=== PATIENT | male | born 1985 | race Caucasian/White ===

== ENCOUNTER 2024-08-06 16:34 | Emergency (ER) | payer BC, SELFPAY ==
[2024-08-06 16:35] VITALS: BP 156/94; PULSE 94; RESP 16; TEMP 37; O2SAT 97
--- NOTE | 2024-08-06 16:47 | ED.GENADUL_ITS ---
Discharge Plan Disposition Patient Disposition: Home Condition: Stable Discharge Details Chief Complaint: Orthopedic Clinical Impression: Fracture of left shoulder Primary Care Provider: Daniela,Local ED Provider: Slava Darnell Discharge Instructions Additional Instructions: You have a minimally displaced fracture of the left greater tuberosity of your left shoulder. You can take 1000 mg of acetaminophen and 600 mg of ibuprofen every 6 hours as needed. You should follow-up with orthopedics when you return home. If you feel more ill or have new symptoms such as severe chest pain return to the emergency department for reevaluation HPI General Mode of arrival: ambulatory . Date/Time Provider Initiated Documentation: 08/06/24 16:44 . Limitations to Documentation: no limitations . Information obtained by: patient . History of Present Illness 38 year old M presents to the emergency department with the chief complaint of left shoulder pain s/p fall skiing, described as moderate, Quality is described as aching, and is localized to the left and upper extremity. Patient reports no radiation. Patient started experiencing this hour(s) (2) and it has been constant. Rest improves symptom(s), Movement worsens symptoms . Patient notes no other symptoms.. Patient did receive the following treatments prior to arrival, none Related Data Allergies Allergy/AdvReac Type Severity Reaction Status Date / Time No Known Allergies Allergy Unverified 08/06/24 16:38 General Stated Complaint: Orthopedic EL: 4 Review of Systems All systems reviewed & are unremarkable except as noted in HPI and below Constitutional Constitutional: Denies chills, Denies fever(s) and Denies weakness Cardiovascular Cardiovascular: Denies chest pain and Denies dyspnea Respiratory Respiratory: Denies cough and Denies dyspnea Gastrointestinal Gastrointestinal: Denies abdominal pain, Denies nausea and Denies vomiting Neurologic Neurologic: Denies weakness Exam Const General: no acute distress Orientation: alert [facility] Head: normal to inspection Ears: external ears normal General nose exam: external nose normal Mouth: moist mucous membranes Eyes General: appearance normal, both eyes and all related structures Neck Neck: normal visual inspection Resp Effort & Inspection: normal respiratory effort and able to speak in complete sentences Cardio Rate: regular rate Skin General skin exam: no rashes or lesions noted Neuro General: patient alert and patient oriented x3 Extrem General: normal to inspection, capillary refill normal and no edema Psych Mental Status: mental status grossly normal Course Vital Signs Vital signs: Vital Signs Temperature 37.0 C 08/06/24 16:35 Pulse 94 H 08/06/24 16:35 Respiratory Rate 16 08/06/24 16:35 Blood Pressure 156/94 H 08/06/24 16:35 Pulse Oximetry 97 08/06/24 16:35 Temperature 37.0 C 08/06/24 16:35 Pulse 94 H 08/06/24 16:35 Respiratory Rate 16 08/06/24 16:35 Blood Pressure 156/94 H 08/06/24 16:35 Pulse Oximetry 97 08/06/24 16:35 Pain Level 10 08/06/24 16:45 Medical Decision Making 38-year-old male comes in after he fell skiing landing on his left shoulder. He denies hitting his head and has no head pain, no neck pain, back pain chest or abdomen pain. he localizes the pain to the anterior lateral left shoulder. There is no visible deformity of the shoulder. He has limited range of motion due to pain. He has intact distal sensation and pulses and has no tenderness elsewhere in the arm. Suspect sprain but given limited range of motion due to pain will obtain x-rays to evaluate for fracture/dislocation. Patient stable and has no new pain elsewhere. X-ray shows a minimally displaced left greater tuberosity fracture. No joint dislocation. He already has a sling, he is not from this area but I advise he should follow-up with orthopedics when he returns home on Thursday. Return precautions given Differential Diagnosis Differential Diagnosis: Fracture, dislocation, contusion, sprain Quality:SDOH Health Related Social Needs: No Data to Display PFSH All Active Problems (Updated 08/06/24 @ 17:51 by Slava Darnell MD) Fracture of left shoulder (Acute) Social History Smoking/Tobacco Use Status: Never Smoking risk assessment performed?: Yes Alcohol Intake: current Alcohol Intake frequency: a few times a month Drug use: Never Substance use type: does not use Do you feel safe at home: Yes Do you feel safe in your relationship?: Yes PAWSS Have you Been Recently Intoxicated or Drunk Within the Last 30 days?: No Have you Ever Experienced Previous Episodes of Alcohol Withdrawal?: No Have you ever Experienced Withdrawal Seizures?: No Have you ever Experienced Delirium Tremens(DT)s?: No Have you ever undergone Alcohol Rehabilitation Treatment (i.e, inpt ot outpatient treatment programs)?: No Have you ever Experienced Blackouts?: No Have you ever Combined Alcohol with other Downers within the last 90 days?: No Have you ever Combined Alcohol with any other Substance of Abuse during the last 90 days?: No Positive Blood Alcohol level on Presentation? [PCS.BAL]: No Evidence of Increased Autonomic Activity (i.e. HR>120, tremor, sweating, agitation, nausea)?: No Result: 0
[2024-08-06] MEDS: Ibuprofen 600 MG TAB PO (16:50)
--- NOTE | 2024-08-06 17:00 | DI.RAD_ITS ---
Exam(s) XR SHOULDER LT COMPLETE 2+V EXAM: XR SHOULDER LT COMPLETE 2+V CLINICAL HISTORY: pain, s/p fall skiing. TECHNIQUE: 2D digital imaging was performed. COMPARISON: No exams were available for comparison FINDINGS: Five views. There is a fracture of the greater tuberosity on the lateral aspect of the humeral head. Minimal dis placement. The subacromial space is not diminished and there are no abnormal bone fragments in the s ubacromial space. There is no dislocation glenohumeral joint. AC joint and clavicle also appear unr emarkable. Coracoid process is intact. IMPRESSION: Minimally displaced fracture of the greater tuberosity of the humeral head. DATA REPOSITORY: RADIATION DOSE DELIVERED:
--- OUTSIDE RECORDS SUMMARY | 2024-08-06 17:17 | XMS_ITS | Encounter Summary ---
Author Organization [facility] work ([facility]) Address [address] [place] [address] Care Team Providers Care Hand Plate Stacker Name Role Phone Quentin Mccarty DO Primary Care Provider [phone] Source Comments The information that you have received may contain highly confidential and/or federally protected health information. This information has been disclosed to you from records protected by [facility]. The law prohibits you from making any further disclosure of this information unless further disclosure is expressly permitted by the written consent of the person to whom it pertains or is authorized by the Confidentiality of HIV-Related Information Act. A general authorization for the releaseof medical or other information is not sufficient. This information may include information relatedto diagnosis and/or treatment of HIV, mental health, or drug and alcohol-related conditions. Any disclosure, dissemination, distribution, or copying of this information is strictly prohibited. If youfeel that you have received this information in error, please contact the sender immediately.[facility] ([facility]) Encounter Details Date Type Department Care Team (Late st Contact Info) Description 10/27/2022 Orders Only [facility]IMARY [facility] [address] [phone] Quentin Mccarty DO [address] [place] [address] [id number] Social History Tobacco Use Types Packs/Day Years Used Date Smoking Tobacco: Former Cigarettes Q uit: 07/23/2001 Smokeless Tobacco: Former Chew Quit: 07/23/2014 Alcohol Use Standard Drinks/Week Comments Yes 3 (1 standard drink = 0.6 oz pur e alcohol) 3-4 days per week/ 2-4 drinks PHQ-2 Answer Date Recorded PHQ-9 Total Score 5 03/28/2022 Social Connections Answer Date Recorded How often do you feel that you lack companionshi p? Hardly ever 03/28/2022 How often do you feel left out? Some of the time 03/28/2022 How often do you feel isolated from others? Hard ly ever 03/28/2022 Financial Resource Strain Answer Date R ecorded Sometimes people find that t heir income does not quite cover their living costs. In the last 12 months, has this happened to you? 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 zzzMore than half the days 03/28/2022 Over the last 2 weeks, how o ften have you been bothered by the following problems: Not being able to stop or control worrying? Several days 03/28/2022 Food Insecurity Answer Date Recorded Within the past 12 months we worried whether our food would run out before we got the money to buy more. Never true Within the past 12 months th e food we bought just didn't last and we didn't have money to get more. Never true 03/28/2022 Safety and Environment Answer Date Carlos rded Do you feel physically and e motionally safe where you currently live? Yes 03/28/2022 Are you afraid of anyone close to you? No 03/28/2022 Alcohol and Drug Use Answer Date Record ed Females: In the past year, h ave you had more than 7 drinks in one week? Unrecognized value 03/28/2022 Males greater than 65 years of age: In the past year, have you had more than 7 drinks in one week? Unrecognized value 12/2021 Males less than or equal to 65 years of age: In the past year, have you had more than 14 drinks in one week? No 03/28/2022 In the past year, have you u sed any drugs other than those prescribed by your doctor? No 03/28/2022 Transportation Answer Date Recorded Has a lack of transportation kept you from medical appointments, meetings, work, or from getting things needed for daily living. Check all that apply. No 03/28/2022 Access Answer Date Recorded In the past year, have you b een unable to get childcare when it was really needed? zzzNo 03/28/2022 In the past year, have you b een unable to get clothing when it was really needed? No 03/28/2022 In the past year, have you b een unable to get medicine or any health care when it was really needed? No 03/28/2022 Sex and Gender Information Value Date Recorded Sex Assigned at Male 08/01/2020 12:55 PM EST Legal Sex Male 6:40 PM EDT Gender Identity Male 08/01/2020 12:55 PM EST Sexual Orientation Straight 08/01/2020 12 :55 PM EST documented as of this encounter Ordered Prescriptions Prescription Sig Dispense Quantity Refills Last Filled Start Date End Date albuterol (PROAIR HFA;PROVENTIL HFA;VENTOLIN HFA) 90 mcg/actuation inhaler Inhale 2 puffs every 6 (six) hours as needed for wheezing. 1 each 1 10/27/2022 05/18/2023 documented in this encounter Plan of Treatment Upcoming Encounters Date Type Department Care Team (Late st Contact Info) Description 07/26/2025 8:15 AM EST Office Visit [facility] [address] [phone] Quentin Mccarty DO [address] [place] [phone] documented as of this encounter Visit Diagnoses Not on filedocumented in this encounter Additional Health Concerns Assessment Noted Time PHQ-9 Depression Total Score: 5 03/28/20 22 10:09 AM EDT PHQ-2 Depression Total Score: 2 03/28/20 22 10:09 AM EDT documented as of this encounter Care Teams Hand Plate Stacker Relationship Specialty Start Date End Date Quentin Mccarty DO [address] [id number] PCP - General Internal Medicine 08/02/20 documented as of this encounter
--- OUTSIDE RECORDS SUMMARY | 2024-08-06 17:17 | XMS_ITS | Referral Summary ---
Author Organization [facility] eflow [facility] work ([facility]) Address [address] [place] [address] Care Team Providers Care Teacher Music Name Role Phone Quentin Mccarty DO Primary Care Provider [phone] Source Comments The information that you have received may contain highly confidential and/or federally protected health information. This information has been disclosed to you from records protected by [facility]. The law prohibits you from making any [...] information in error, please contact the sender immediately.[facility] ([facility]) Encounters Date Type Department Care Team Description 07/26/2024 8:15 AM EST Office Visit [facility] [address] [phone] Quentin Mccarty DO Health care maintenance (Primary Dx); Encounter for lipid screening for cardiovascular disease; Diabetes mellitus screening from Last 3 Months Allergies Active Allergy Reactions Criticality Noted Date Comments Hay Fever And Allergy Relief Itching,Shortness Of Breath High 08/02/2020 Medications buPROPion (WELLBUTRIN SR) 200 mg 12 hr tablet Take 1 tablet (200 mg total) by mouth 2 (two) times a day . 180 tablet 3 4 08/24/19 25 Active albuterol (PROAIR HFA;PROVENTIL HFA;VENTOLIN HFA) 90 mcg/actuation inhaler Inhale 2 puffs every 6 (six) hours as needed for wheezing . 1 each 1 4 Active sildenafiL (VIAGRA) 100 mg tablet Take 1 tablet (100 mg total) by mouth every 24 hours as needed for erectile dysfunction . 10 tablet 5 Active ALPRAZolam (XANAX) 1 mg tablet Take 1 tablet (1 mg total) by mouth nightly as needed for anxiety . Max Daily Amount: 1 mg 30 tablet 5 08/10/19 25 Active buPROPion (WELLBUTRIN SR) 200 mg 12 hr tablet TAKE ONE TABLET BY MOUTH TWO TIMES A DAY 180 tablet 4 07/26/19 25 Discontin ued(Alter cornelia therapy) sildenafiL (VIAGRA) 100 mg tablet Take 1 tablet (100 mg total) by mouth every 24 hours as needed for erectile dysfunction . 10 tablet 4 07/11/19 25 Discontin ued(Reord er) ALPRAZolam (XANAX) 1 mg tablet Take 1 tablet (1 mg total) by mouth nightly as needed for anxiety . Max Daily Amount: 1 mg 30 tablet 4 07/11/19 25 Discontin ued(Reord er) Active Problems Problem Noted Date Diagnosed Date Recurrent major depressive disorder, in partial remission 10/22/2016 Assessment & Plan (02/18/2017 2:16 PM EDT): Symptoms improved as per patient. Continue effexor 75 mg oral BID. Recommend he return to his CBT and previous routine of once weekly for symptom improvement. Taking xanax once daily to sleep. Discussed belsomra as previously recommended by Dr. Mccarty and patient will consider. Resolved Problems Problem Noted Date Diagnosed Date Resolved Date Acute otitis externa of left ear 02/18/2017 08/02/2020 Assessment & Plan (02/18/2017 2:14 PM EDT): Ciprodex 0.3-0.1% 4 gtts to left ear BID x 5 days. Recommend avoiding inserting any objects into ear as well as avoiding insertion of peroxide and debrox into ear. Explained that damaging skin in ear canal can provoke bacterial and/or fungal growth. To dry ear with towel and finger following bathing. To call/return to office with any new, persistent, or worsening symptoms. Immunizations Immunization Administration Dates Next Due COVID-19 mRNA (PF) ([employer], 2 dose series) 06/06,10/06/2020,09/13/2020 Influenza, Quadrivalent (IM) 04/03/2017 Influenza, Quadrivalent, Pre servative Free (IM) 03/31/2022 Influenza, Unspecified 04/03/2017,04/10/2016 Tdap 06/23/2014 Social History Tobacco Use Types Packs/Day Years Used Date Smoking Tobacco: Former Cigarettes Q uit: 07/23/2001 Smokeless Tobacco: Former Chew Quit: 07/23/2014 Tobacco Cessation:Counseling Given: Not Answered Alcohol Use Standard Drinks/Week Comments Yes 3 (1 standard drink = 0.6 oz pur e alcohol) 3-4 days per week/ 2-4 drinks PHQ-2 Answer Date Recorded PHQ-9 Total Score 2 07/26/2024 Social Connections Answer Date Recorded How often do you feel isolated from others? Some of the time 07/26/2024 Financial Resource Strain Answer Date R ecorded Sometimes people find that t heir income does not quite cover their living costs. In the last 12 months, has this happened to you? 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 Full-time w ork 07/26/2024 Stress Answer Date Recorded Over the last 2 weeks, how o ften have you been bothered by the following problems: feeling nervous, anxious, on edge? Several days 07/26/2024 Over the last 2 weeks, how o ften have you been bothered by the following problems: Not being able to stop or control worrying? Several days 07/26/2024 Food Insecurity Answer Date Recorded Within the past 12 months we worried whether our food would run out before we got the money to buy more. Never true Within the past 12 months th e food we bought just didn't last and we didn't have money to get more. Never true 07/26/2024 Safety and Environment Answer Date Carlos rded Do you feel physically and e motionally safe where you currently live? Yes 07/26/2024 Housing Stability Answer Date Recorded Are you worried about losing your housing? No 07/26/2024 In the past 12 months has th e electric, gas, oil, or water company threatened to shut off services in your home? No 07/26/2024 Health Literacy Answer Date Recorded How often do you need to hav e someone help you when you read instructions, pamphlets, or other written material from your doctor or pharmacist? Never 07/26/2024 I know how to find helpful health resources on [employer] internet. 3 07/26/2024 Alcohol and Drug Use Answer Date Record ed Females: In the past year, h ave you had more than 7 drinks in one week? Unrecognized value 07/26/2024 Males greater than 65 years of age: In the past year, have you had more than 7 drinks in one week? Unrecognized value 09/2024 Males less than or equal to 65 years of age: In the past year, have you had more than 14 drinks in one week? No 07/26/2024 In the past year, have you u sed any drugs other than those prescribed by your doctor? No 07/26/2024 Transportation Answer Date Recorded Has a lack of transportation kept you from medical appointments, meetings, work, or from getting things needed for daily living. Check all that apply. No 07/26/2024 Access Answer Date Recorded In the past year, have you b een unable to get childcare when it was really needed? No 07/26/2024 In the past year, have you b een unable to get clothing when it was really needed? No 07/26/2024 In the past year, have you b een unable to get medicine or any health care when it was really needed? No 07/26/2024 Do you have access to any of the following devices? Smartphone( cell phone with a touchscreen and internet);Computer(laptop, desktop, or tablet such as an iPad);Landline 07/26/2024 Utilities Answer Date Recorded In the past 12 months has th e electric, gas, oil, or water company threatened to shut off services in your home? No 07/26/2024 Sex and Gender Information Value Date Recorded Sex Assigned at Male 08/01/2020 12:55 PM EST Legal Sex Male 6:40 PM EDT Gender Identity Male 08/01/2020 12:55 PM EST Sexual Orientation Straight 08/01/2020 12 :55 PM EST Last Filed Vital Signs Vital Sign Reading Time Taken Comments Blood Pressure 123/81 07/26/2024 8:17 AM EST Pulse 86 07/26/2024 8:17 AM EST Temperature 36.7 ??C (98.1 ??F) 07/26/2024 8:17 AM ES T Respiratory Rate 16 07/26/2024 8:17 AM EST Oxygen Saturation 97% 07/26/2024 8:17 AM EST Inhaled Oxygen Concentration - - Weight 110.9 kg (244 lb 6.4 oz) 07/26/2024 8:17 AM EST Height 186.7 cm (6' 1.5) 07/26/2024 8:17 AM EST Body Mass Index 31.81 07/26/2024 8:17 AM EST Plan of Treatment Upcoming Encounters Date Type Department Care Team (Late st Contact Info) Description 07/26/2025 8:15 AM EST Office Visit [facility] [place] [phone] Quentin Mccarty DO [address] [place] [address] Procedures Procedure Name Priority Date/Time Associated Diagnosis Comments HEMOGLOBIN A1C Routine 07/26/2024 8:38 AM EST Diabetes mellitus screening LIPID PANEL W/REFLEX TO DIRECT LDL Routine 07/26/2024 8:38 AM EST Encounter for lipid screening for cardiovascular disease from Last 3 Months Results * Hemoglobin A1C (07/26/2024 8:38 AM EST) Hemoglobin A1C 5.1 <5.7 % 07/26/2024 3:22 PM EST [facility] Blood Blood specimen / Unknown Venipuncture / Unknown 07/26/2024 8:38 AM EST 07/26/2024 2:23 PM EST [facility] - 07/26/2024 3:22 PM EST Normal ?<5.7 % Pre-Diabetes ?5.7 - 6.4 % Indicative of Diabetes Mellitus ?? 6.5 % or greater us Quentin Mccarty DO LAB BLOOD ORDERABLES Final Resul t [facility] [address] [place] [address] * (ABNORMAL) Lipid panel w/Reflex to Direct LDL (07/26/2024 8:38 AM EST) Cholesterol 221(H) <200 mg/dL 07/26/2024 3:44 PM [facility] Triglycerides 124 <150 mg/dL 07/26/2024 3:44 PM [facility] HDL 61 >39 mg/dL 07/26/2024 3:44 PM [facility] LDL Calculated 135(H) <130 mg/dL 07/26/2024 3:44 PM [facility] Blood Blood specimen / Unknown Venipuncture / Unknown 07/26/2024 8:38 AM EST 07/26/2024 2:23 PM EST [facility] - 07/26/2024 3:44 PM EST RISK FACTORS INCLUDE: Smokers, Blood Pressure >140/90, HDL <40 mg/dl, Males >45 yrs old, Females >55 yrs old, family history of premature CHD, or on antihypertensive medications. RISK CATEGORY 1: Patients having CHD or Diabetes Mellitus or Atherosclerotic Disease or 10 yr risk of CHD >20 %. LDL GOAL for this group is < 100 ??(optional goal = < 70 ) Consider Drug Therapy if >/= 100 or drug option if <100 Initiate Lifestyle Change if LDL is 100 - 129 RISK CATEGORY 2: Patients having 2 or more Risk Factors and a 10 yr risk of CHD 10 - 20 %. LDL Goal is <130 Consider Drug Therapy if >/= 130 Initiate Lifestyle Change if 130 - 159 RISK CATEGORY 3: Patients having 2 or more Risk Factors and a 10 yr risk of CHD < 10%. LDL Goal is <130 Consider Drug Therapy if >/= 160 Initiate Lifestyle Change if 130 - 159 RISK CATEGORY 4: Patients having 0-1 Risk Factors and a 10 yr risk of CHD <10 % LDL GOAL is < 160 Consider Drug Therapy if >/= 190 Initiate Lifestyle Change if 160 - 189 Quentin Mccarty DO LAB BLOOD ORDERABLES Final Resul t [facility] [address] [place] [address] from Last [address] [place] [id number] BLUE Care Teams Teacher Music Relationship Specialty Start Date End Date Quentin Mccarty DO [address] [place] [address] PCP - General Internal Medicine 08/02/20
--- OUTSIDE RECORDS SUMMARY | 2024-08-06 17:17 | XMS_ITS | Encounter Summary ---
Author Organization [facility] work ([facility]) Address [address] [place] [address] Care Team Providers Care Manager Laundry Name Role Phone Quentin Mccarty DO Primary Care Provider [phone] Emiliana Velazquez Unavailable Unavailable Source Comments The information that you have received may contain highly confidential and/or federally protected health information. This information has been disclosed to you from records protected by [facility]. The law prohibits you from making any [...] information in error, please contact the sender immediately.[facility] ([facility]) Encounter Details Date Type Department Care Team (Late st Contact Info) Description 11/26/2020 10:45 AM EDT Office Visit [facility] Primary Care [place] [address] [place] [address] Quentin Mccarty DO [address] [phone] Recurrent major depressive disorder, in partial remission (HCC) (Primary Dx) Social History Tobacco Use Types Packs/Day Years Used Date Smoking Tobacco: Former Cigarettes Q uit: 07/23/2001 Smokeless Tobacco: Former Chew Quit: 07/23/2014 Alcohol Use Standard Drinks/Week Comments Yes 13 (1 standard drink = 0.6 oz pu re alcohol) 3-4 days per week/ 2-4 drinks PHQ-2 Answer Date Recorded PHQ-9 Total Score 6 11/23/2020 Alcohol and Drug Use Answer Date Record ed Females: In the past year, h ave you had more than 7 drinks in one week? Unrecognized value 02/21/2020 Males greater than 65 years of age: In the past year, have you had more than 7 drinks in one week? Unrecognized value 06/2019 Males less than or equal to 65 years of age: In the past year, have you had more than 14 drinks in one week? Not on file 02/21/2020 In the past year, have you u sed any drugs other than those prescribed by your doctor? Not on file 02/21/2020 Sex and Gender Information Value Date Recorded Sex Assigned at Male 08/01/2020 12:55 PM EST Legal Sex Male 6:40 PM EDT Gender Identity Male 08/01/2020 12:55 PM EST Sexual Orientation Straight 08/01/2020 12 :55 PM EST COVID-19 Exposure Response Date Recorded In the last month, have you been in contact with someone who was confirmed or suspected to have Coronavirus / COVID-19? Unable to assess 11/23/2020 9:29 AM EDT documented as of this encounter Ordered Prescriptions Prescription Sig Dispense Quantity Refills Last Filled Start Date End Date buPROPion (WELLBUTRIN SR) 200 MG 12 hr tablet Take 1 tablet (200 mg total) by mouth 2 (two) times a day. 180 tablet 3 11/26/2020 11/25/2021 documented in this encounter Progress Notes * Quentin Mccarty DO - 11/26/2020 10:45 AM EDT PROGRESS NOTE CC: No chief complaint on file. Consultation was provided from my clinic office via two-way live video conferencing. The patient was located at [address] [place] [address] , within the [facility]. The encounter occurred via telemedicine as a convenience to the patient. Vitals recorded in visit today were patient reported and are recorded as such. Any vitals not obtained, were unavailable due to patient inability or unwillingness to provide. Subjective Napoleon Miller is a 35 y.o. male who is here for No chief complaint on file. He has a has a past medical history of Allergic (Childhood), Anxiety and depression, Asthma (Childhood), Headache, and Varicella (Childhood).. Patient presents for follow up. Feeling much better on his current dose of Wellbutrin. No SI , no HI. He is following with [facility] and will be transitioning to a private counselor. No side effects from the medication. Patient reports he has enough food and supplies at home and is able to shop or have things sent to the home if needed. Meds/PMFSHx: The following portions of the patient's history were reviewed and updated as appropriate: allergies, current medications, past family history, past medical history, past social history, past surgicalhistory and problem list. All changes to these categories noted in electronic record. Imported documents from [employer] and [employer] are reviewed. PHQ-9 Screen Results: ROS Review of Systems Constitutional: Negative for chills and fever. HENT: Negative. Eyes: Negative for photophobia and visual disturbance. Respiratory: Negative for cough, chest tightness and shortness of breath. Cardiovascular: Negative for chest pain. Gastrointestinal: Negative for abdominal pain, constipation, diarrhea, nausea and vomiting. Endocrine: Negative for cold intolerance and heat intolerance. Genitourinary: Negative for difficulty urinating, dysuria, hematuria and urgency. Musculoskeletal: Negative for arthralgias, back pain and myalgias. Skin: Negative for rash. Allergic/Immunologic: Negative for immunocompromised state. Neurological: Negative for dizziness, syncope, weakness, light-headedness, numbness and headaches. Hematological: Negative for adenopathy. Psychiatric/Behavioral: Negative. Objective Physical Exam Constitutional: Appearance: Normal appearance. HENT: Head: Normocephalic and atraumatic. Pulmonary: Effort: Pulmonary effort is normal. No respiratory distress. Musculoskeletal: General: Normal range of motion. Cervical back: Normal range of motion. Skin: General: Skin is dry. Neurological: General: No focal deficit present. Mental Status: He is alert and oriented to person, place, and time. Psychiatric: Mood and Affect: Mood normal. Behavior: Behavior normal. Thought Content: Thought content normal. Judgment: Judgment normal. Assessment Assessment and Plan Greater than 50% of the 25 minutes spent [id number] with patient spent in counseling the patient and coordinating care. Counseling included discussion and recommendations for The encounter diagnosis was Recurrent major depressive disorder, in partial remission (HCC). Diagnoses and all orders for this visit: Recurrent major depressive disorder, in partial remission (HCC) Comments: doing well on Wellbutrin, will continue current dose and reassess in three months. Other orders - buPROPion (WELLBUTRIN SR) 200 MG 12 hr tablet; Take 1 tablet (200 mg total) by mouth 2 (two) times a day. Quentin Mccarty DO 11/26/2020 documented in this encounter Plan of Treatment Upcoming Encounters Date Type Department Care Team (Late st Contact Info) Description 07/26/2025 8:15 AM EST Office Visit [facility] PRIMARY CARE [address] [address] Quentin Mccarty DO [address] [place] [phone] documented as of this encounter Visit Diagnoses Diagnosis Recurrent major depressive disorder, in partial remission (HCC)- Primary documented in this encounter Discontinued Medications Medication Sig Discontinue Reason Start Date End Da te buPROPion (WELLBUTRIN SR) 200 MG 12 hr tablet Take 1 tablet (200 mg total) by mouth 2 (two) times a day. Reorder 10/11/2020 11/26/2020 documented as of this encounter Additional Health Concerns Assessment Noted Time PHQ-9 Depression Total Score: 6 11/24/19 21 9:00 AM EDT PHQ-2 Depression Total Score: 2 11/24/19 21 9:00 AM EDT documented as of this encounter Care Teams Manager Laundry Relationship Specialty Start Date End Date Quentin Mccarty DO [address] [place] [address] PCP - General Internal Medicine 08/02/20 Emiliana Velazquez Behavioral Health Truck Rental Clerk Psychology 08/03/20 01/03/21 documented as of this encounter
--- OUTSIDE RECORDS SUMMARY | 2024-08-06 17:17 | XMS_ITS | Encounter Summary ---
Author Organization [facility] work ([facility] Address [address] [place] [address] Care Team Providers Care Fish And Wildlife Scientific Aid Name Role Phone Quentin Mccarty DO Primary Care Provider [phone] Emiliana Velazquez Unavailable Unavailable Source Comments The information that you have received may contain highly confidential and/or federally protected health information. This information has been disclosed to you from records protected by [facility]. The law prohibits you from making any [...] information in error, please contact the sender immediately.[facility] ([facility] Encounter Details Date Type Department Care Team (Late st Contact Info) Description 10/11/2020 Orders Only [facility] Primary Care [place] [address] [place] [address] Quentin Mccarty DO [address], [place] [id number] Social History Tobacco Use Types Packs/Day Years Used Date Smoking Tobacco: Former Cigarettes Q uit: 07/23/2001 Smokeless Tobacco: Former Chew Quit: 07/23/2014 Alcohol Use Standard Drinks/Week Comments Yes 13 (1 standard drink = 0.6 oz pu re alcohol) 3-4 days per week/ 2-4 drinks PHQ-2 Answer Date Recorded PHQ-9 Total Score 5 10/10/2020 Alcohol and Drug Use Answer Date Record [...] have Coronavirus / COVID-19? Unable to assess 10/10/2020 3:05 PM EDT documented as of this encounter Plan of Treatment Upcoming Encounters Date Type Department Care Team (Late st Contact Info) Description 07/26/2025 8:15 AM EST Office Visit [facility] PRIMARY CARE [address] [address] Quentin Mccarty DO [address] [place] [phone] documented as of this encounter Visit Diagnoses Not on filedocumented in this encounter Historical Medications * This list may reflect changes made after this encounter. phentermine 37.5 MG capsule Take 37.5 mg by mouth every morning. 12/17/2020 added in this encounter Additional Health Concerns Assessment Noted Time PHQ-9 Depression Total Score: 5 10/11/19 2:00 PM EDT PHQ-2 Depression Total Score: 2 10/11/19 2:00 PM EDT documented as of this encounter Care Teams Fish And Wildlife Scientific Aid Relationship Specialty Start Date End Date Quentin Mccarty DO [facility] [place] [address] PCP - General Internal Medicine 08/02/20 Emiliana Velazquez Behavioral Health Program Manufacturing Leader Psychology 08/03/20 01/03/21 documented as of this encounter
--- OUTSIDE RECORDS SUMMARY | 2024-08-06 17:17 | XMS_ITS | Encounter Summary ---
Author Organization [facility] work ([facility]) Address [address] [place] [address] Care Team Providers Care Counter Cutter Name Role Phone Quentin Mccarty DO Primary Care Provider [phone] Source Comments The information that you have received may contain highly confidential and/or federally protected health information. This information has been disclosed to you from records protected by [facility]. The law prohibits you from making any [...] information in error, please contact the sender immediately.[facility] ([facility]) Reason for Visit * Reason Comments Annual Exam Flu Vaccine Encounter Details Date Type Department Care Team (Late st Contact Info) Description 03/28/2022 10:15 AM EDT Office Visit [facility] Primary Care [place] [address] [place] [address] Nader Mattson PA-C [address] [place] [address] Healthcare maintenance (Primary Dx); Need for prophylactic vaccination and inoculation against influenza; Encounter for lipid screening for cardiovascular disease; Screening for diabetes mellitus; Family history of type 1 diabetes mellitus Social History Tobacco Use Types Packs/Day Years [...] Exposure Response Date Recorded In the last 10 days, have yo u been in contact with someone who was confirmed or suspected to have Coronavirus/COVID-19? No / Unsure 03/23/2022 8:02 AM EDT documented as of this encounter Last Filed Vital Signs Vital Sign Reading Time Taken Comments Blood Pressure 132/70 03/28/2022 10:12 AM EDT Pulse 86 03/28/2022 10:12 AM EDT Temperature 36.7 ??C (98 ??F) 03/28/2022 10: 12 AM EDT Respiratory Rate 16 03/28/2022 10:1 2 AM EDT Oxygen Saturation 97% 03/28/2022 10: 12 AM EDT Inhaled Oxygen Concentration - - Weight 109.7 kg (241 lb 12.8 oz) 2021 10:12 AM EDT Height 186 cm (6' 1.24) 03/28/2022 10: 12 AM EDT Body Mass Index 31.69 03/28/2022 10:12 AM EDT documented in this encounter Progress Notes * Nader Mattson PA-C - 03/28/2022 10:15 AM EDT PROGRESS NOTE CC: Annual Exam and Flu Vaccine Subjective Napoleon Miller is a 36 y.o. male who is here for Annual Exam and Flu Vaccine He has a has a past medical history of Allergic (Childhood), Anxiety and depression, Asthma (Childhood), Headache, and Varicella (Childhood).. Patient is due for annual physical. He is doing well in general, feels like his current regimen is effective and would like to continue it. His father was recently diagnosed with diabetes and his sister is a type 1. They are unsure of exactly which type his father is but he presented in DKA, improving now. Health Maintenance Due Topic Date Due ??? INFLUENZA VACCINES (1) 12/20/2021 consents to all recommended screening and vaccinations. Orders placed in chart and scheduling assistance offered to patient. Meds/PMFSHx: The following portions of the patient's history were reviewed and updated as appropriate: allergies, current medications, past family history, past medical history, past social history, past surgicalhistory and problem list. Imported documents from [employer] and [employer] are reviewed. PHQ-9 Screen Results: PHQ-9 Total Score: 5 ROS Review of Systems Constitutional: Negative for appetite change, chills, fatigue and unexpected weight change. HENT: Negative for congestion, ear pain, rhinorrhea, sinus pressure, sinus pain, sneezing and sore throat. Eyes: Negative for pain, discharge, redness and itching. Respiratory: Negative for cough, shortness of breath and wheezing. Cardiovascular: Negative for chest pain, palpitations and leg swelling. Gastrointestinal: Negative for abdominal pain, constipation, diarrhea, nausea and vomiting. Endocrine: Negative for polydipsia, polyphagia and polyuria. Genitourinary: Negative for difficulty urinating, dysuria, frequency, hematuria, penile swelling, scrotal swelling and urgency. Musculoskeletal: Negative for arthralgias, joint swelling, myalgias, neck pain and neck stiffness. Skin: Negative for color change and rash. Allergic/Immunologic: Negative for environmental allergies and food allergies. Neurological: Negative for dizziness, syncope, weakness, light-headedness, numbness and headaches. Hematological: Does not bruise/bleed easily. Psychiatric/Behavioral: Negative for decreased concentration, dysphoric mood, hallucinations and suicidal ideas. The patient is not nervous/anxious. Physical Exam Vitals: 03/28/22 1012 BP: 132/70 Pulse: 86 Resp: 16 Temp: 98 ??F (36.7 ??C) SpO2: 97% Weight: (!) 109.7 kg (241 lb 12.8 oz) Height: 6' 1.24 (1.86 m) Physical Exam Constitutional: General: He is not in acute distress. Appearance: He is well-developed. He is not diaphoretic. HENT: Head: Normocephalic and atraumatic. Right Ear: External ear normal. Left Ear: External ear normal. Nose: Nose normal. Eyes: General: No scleral icterus. Conjunctiva/sclera: Conjunctivae normal. Pupils: Pupils are equal, round, and reactive to light. Neck: Thyroid: No thyroid mass or thyromegaly. Vascular: No carotid bruit or JVD. Cardiovascular: Rate and Rhythm: Normal rate and regular rhythm. Pulses: Carotid pulses are 2+ on the right side and 2+ on the left side. Radial pulses are 2+ on the right side and 2+ on the left side. Femoral pulses are 2+ on the right side and 2+ on the left side. Popliteal pulses are 2+ on the right side and 2+ on the left side. Dorsalis pedis pulses are 2+ on the right side and 2+ on the left side. Posterior tibial pulses are 2+ on the right side and 2+ on the left side. Heart sounds: Normal heart sounds, S1 normal and S2 normal. No murmur heard. No friction rub. No gallop. Pulmonary: Effort: Pulmonary effort is normal. No respiratory distress. Breath sounds: Normal breath sounds. No wheezing, rhonchi or rales. Abdominal: General: Bowel sounds are normal. Palpations: Abdomen is soft. There is no mass. Tenderness: There is no abdominal tenderness. Musculoskeletal: General: No tenderness or deformity. Normal range of motion. Cervical back: Neck supple. Lymphadenopathy: Cervical: No cervical adenopathy. Upper Body: Right upper body: No supraclavicular adenopathy. Left upper body: No supraclavicular adenopathy. Skin: General: Skin is warm and dry. Capillary Refill: Capillary refill takes less than 2 seconds. Findings: No rash. Neurological: Mental Status: He is alert and oriented to person, place, and time. Psychiatric: Speech: Speech normal. Behavior: Behavior normal. Thought Content: Thought content normal. Judgment: Judgment normal. Assessment and Plan Problem List Items Addressed This Visit None Visit Diagnoses Healthcare maintenance - Primary Encouraged to perform 150 min mod exercise a week. Ie: walking, jogging, swimming, yoga. Encouraged high fiber diet with focus on minimally processed foods. Emphasis placed on fruit, veg, whole grains. Encouraged 7-8 hours uninterrupted sleep a night. Briefly discussed sleep hygiene and the patient will call with any issues. Encouraged stress reduction with mindfulness based practice such as guided meditation. Discussed routine screenings with patient. Reviewed risks and benefits of routine screening and vaccination. Need for prophylactic vaccination and inoculation against influenza Relevant Orders FLU VACCINE GREATER THAN OR EQUAL TO 6 MO PRESERVATIVE FREE Encounter for lipid screening for cardiovascular disease Relevant Orders Lipid panel Screening for diabetes mellitus Relevant Orders Basic Metabolic Panel Hemoglobin A1C Family history of type 1 diabetes mellitus Relevant Orders Hemoglobin A1C I rendered all services in the patient encounter. A physician of the practice was available via telecommunication and/or in the office at the time services were rendered. Nader Mattson PA-C 03/28/2022 Cosigned by Quentin Mccarty DO at 04/04/2022 1:26 PM EDT Associated attestation - Quentin Mccarty DO - 04/04/2022 1:26 PM EDT Cosigned by: Quentin Mccarty DO documented in this encounter Miscellaneous Notes * Result Encounter Note - Quentin Mccarty DO - 03/28/2022 10:15 AM EDT Hello, Your lab results are normal. If you have any questions please feel free to call the office: [phone] documented in this encounter Plan of Treatment Upcoming Encounters Date Type Department Care Team (Late st Contact Info) Description 07/26/2025 8:15 AM EST Office Visit [facility] PRIMARY CARE [facility] [address] [place] [phone] Quentin Mccarty DO [address] [place] [address] [phone] documented as of this encounter Procedures Procedure Name Priority Date/Time Associated Diagnosis Comments HEMOGLOBIN A1C Routine 03/28/2022 10:49 AM EDT Screening for diabetes mellitus Family history of type 1 diabetes mellitus LIPID PANEL W/REFLEX TO DIRECT LDL Routine 03/28/2022 10:49 AM EDT Encounter for lipid screening for cardiovascular disease BASIC METABOLIC PANEL Routine 03/28/2022 10:49 AM EDT Screening for diabetes mellitus documented in this encounter Results * Hemoglobin A1C (03/28/2022 10:49 AM EDT) Hemoglobin A1C 4.8 <5.7 % 03/28/2022 6:53 PM EDT [facility] Blood Blood specimen / Unknown 03/28/2022 10:49 AM EDT 03/28/2022 6:08 PM EDT Narrative [facility] - 03/28/2022 6:53 PM EDT Normal ?<5.7 % Pre-Diabetes ?5.7 - 6.4 % Indicative of Diabetes Mellitus ?? 6.5 % or greater us Nader Mattson PA-C LAB BLOOD ORDERABLES Fi nal Result [facility] [address] [place] [address] * (ABNORMAL) Basic Metabolic Panel (03/28/2022 10:49 AM EDT) Glucose 107(H) 70 - 99 mg/dL 03/28/2022 6:49 PM EDT [facility] Comment: The reference range is for fasting only. Non-fasting glucose reference range: 1 year and above: 70 - 140 mg/dL Reference range not established for 0-11 months BUN 13 6 - 20 mg/dL 03/28/2022 6:49 PM T [facility] Creatinine 0.71 0.70 - 1.20 mg/dL 03/28/2022 6:49 PM [facility] eGFR (CKD-EPI) >100 03/28/2022 6:49 PM [facility] Comment:eGFR calculation and reference range based on the Chronic Kidney Disease Epidemiology Collaboration 2020 (CKD-EPI) equation without adjustments for race. ([facility] 385;2020). Sodium 134(L) 136 - 145 mmol/L 03/28/2022 6:49 PM EDT [facility] Potassium 4.4 3.5 - 5.2 mmol/L 03/28/2022 6:49 PM T [facility] Chloride 96(L) 98 - 107 mmol/L 03/28/2022 6:49 PM [facility] CO2 24 22 - 30 mmol/L 03/28/2022 6:49 PM T [facility] Anion Gap 14 7 - 16 mmol/L 03/28/2022 6:49 PM T [facility] Calcium 9.9 8.4 - 10.3 mg/dL 03/28/2022 6:49 PM [facility] Blood Blood specimen / Unknown 03/28/2022 10:49 AM EDT 03/28/2022 6:08 PM EDT us Nader Mattson PA-C LAB BLOOD ORDERABLES Fi nal Result Performing Organization Address City/[facility]/ZIP Co de Phone Number [facility] [address] [place] [address] * (ABNORMAL) Lipid panel (03/28/2022 10:49 AM EDT) Cholesterol 219(H) <200 mg/dL 03/28/2022 6:49 PM EDT [facility] Triglycerides 174(H) <150 mg/dL 03/28/2022 6:49 PM EDT [facility] HDL 57 >39 mg/dL 03/28/2022 6:49 PM EDT [facility] LDL Calculated 127 <130 mg/dL 03/28/2022 6:49 PM EDT [facility] Blood Blood specimen / Unknown 03/28/2022 10:49 AM EDT 03/28/2022 6:[address] [facility] - 03/28/2022 6:49 PM EDT RISK CATEGORY 1: Patients having CHD or Diabetes Mellitus or Atherosclerotic Disease or 10 yr risk of CHD >20 %. LDL GOAL for this group is < 100 ??(optional goal = < 70 ) Consider Drug Therapy if >/= 100 or drug option if <100 Initiate Lifestyle Change if LDL is 100 - 129 RISK FACTORS INCLUDE: Smokers, Blood Pressure >140/90, HDL <40 mg/dl, Males >45 yrs old, Females >55 yrs old, family history of premature CHD, or on antihypertensive medications. RISK CATEGORY 2: Patients having 2 or [...] Initiate Lifestyle Change if 160 - 189 us Nader Mattson PA-C LAB BLOOD ORDERABLES Fi nal Result [facility] [address] [place], [place] [id number] documented in this encounter Visit Diagnoses Diagnosis Healthcare maintenance- Primary Need for prophylactic vaccination and inoculation against influenza Encounter for lipid screening for cardiovascular disease Screening for diabetes mellitus Family history of type 1 diabetes mellitus Family history of diabetes mellitus documented in this encounter Orders Immunization/Injection Count Last Ordered Date First Ordered Date FLU VACCINE GREATER THAN OR EQUAL TO 6 MO PRESERVATIVE FREE 1 03/28/2022 documented in this encounter Additional Health Concerns Assessment Noted Time PHQ-9 Depression Total Score: 5 03/28/20 22 10:09 AM EDT PHQ-2 Depression Total Score: 2 03/28/20 22 10:09 AM EDT documented as of this encounter Care Teams Counter Cutter Relationship Specialty Start Date End Date Quentin Mccarty DO [address] [place] [address] PCP - General Internal Medicine 08/02/20 documented as of this encounter
--- OUTSIDE RECORDS SUMMARY | 2024-08-06 17:17 | XMS_ITS | Encounter Summary ---
Author Organization [facility] [employer] [facility] work ([facility]) Address [address] [place] [address] Care Team Providers Care Electric Truck Driver Name Role Phone Quentin Mccarty DO Primary Care Provider [phone] Emiliana Velazquez Unavailable Unavailable Source Comments The information that you have received may contain highly confidential and/or federally protected health information. This information has been disclosed to you from records protected by [facility]. The law prohibits you from making [...] information in error, please contact the sender immediately.[facility] [employer] [facility] ([facility]) Reason for Visit * Reason Comments Supportive Care Encounter Details Date Type Department Care Team (Latest Contact Info) Description 12/14/2020 9:30 AM EDT Clinical Support [facility] Primary Care [place] [address] [place], [place] [phone] Emiliana Velazquez Recurrent major depressive disorder, in partial remission (HCC) (Primary Dx) Social History Tobacco Use Types Packs/Day Years Used Date Smoking Tobacco: Former Cigarettes Q uit: 07/23/2001 Smokeless Tobacco: Former Chew Quit: 07/23/2014 Alcohol Use Standard Drinks/Week Comments Yes 13 (1 standard drink = 0.6 oz pu re alcohol) 3-4 days per week/ 2-4 drinks PHQ-2 Answer Date Recorded PHQ-9 Total Score 2 12/14/2020 Alcohol and Drug Use Answer Date Record [...] have Coronavirus / COVID-19? Unable to assess 12/14/2020 9:56 AM EDT documented as of this encounter Mental Status * Problems Bothering Patient in the Last 2 Weeks Question Answer Entry Date Author KRISTIN-7 Total Score 5 12/14/2020 9:00 AM EDT Emiliana Velazquez documented in this encounter Progress Notes * Emiliana Velazquez - 12/14/2020 9:30 AM EDT Behavioral Health Emergency Room Physician Assistant Progress Note Name: Napoleon Miller : 1985 Date: 12/14/2020 Plan Encounter Diagnosis: 1. Recurrent major depressive disorder, in partial remission (HCC) Plan 12/14/2020 Intervention Type initial assessment and/or use of validated rating scales with patient (collaborative care);provision of brief interventions using evidence based techniques (collaborative care);continuity of care with a designated member of the care team (collaborative care);goal setting (collaborative care);assisting patient with barriers to care Treatment Goals improve coping skills;improve overall mood;improve relaxation skills;improve self-care routine;increase restful sleep Patient goal in their own words: Would like to continue therapy to address anxiety and talk about ways I can handle it. Patient motivation in their own words: This has been helpful. Follow up 12/14/2020 Does the patient need follow up Yes Patient agrees to follow up visit/contact or referral to other services Yes Patient Agrees to try a new behavior in the next 7 days Yes If this is a follow up visit, is patient making progress towards their goal(s) Yes Resources Provided Private therapist Is the patient making progress in the self management of their chronic condition? N/A Return in about 3 weeks (around 01/04/2021). Referral Referral 12/14/2020 Program Primary Care [facility] Type of visit Follow up Type of contact Phone call with patient Start time with patient 9:30 AM End time with patient 9:58 AM Total time spent with patient (in minutes) 28 Reason for referral mental health concerns Assessment Clinical Impression: [facility] and pt met for follow. Started video visit, but transitioned to phone due to poor connectivity. Reviewed PHQ-9 (pt scored in none/minimal sx range) and KRISTIN-7 (pt scored in mild sx range). Identified the things that have helped pt see improvement in his sx. Pt reports that he has been keeping busy and having things to reorient his attention to which has been helpful. Reports he has been making an effort to spend time with his kids which he has enjoyed, also has met a friend for golf several times. Pt shared that work continues to be stressful. Explored his anxieties around specific situations there and how to reframe some of these situations. Pt reflected that he does notice the Wellbutrin being helpful in reducing sx as well. Discussed behavioral health tx moving forward since pt is nearing end of BI sessions. Pt would liketo continue counseling since he has found benefit. Discussed what he feels would be a good fit witha provider. Suggested [facility] since pt lives in [place], pt is agreeable and gave [facility] permission to discuss case with their clinical food checkers and cashiers supervisor to be paired with therapist there. [facility] spoke with director there who will call pt about scheduling. [facility] rescheduled pt final session in 3 weeks. Screening Results 12/14/2020 PHQ-9 Total Score 2 KRISTIN-7 Total Score 5 Mental Status Exam: Physical Exam Psychiatric: Attention and Perception: Attention and perception normal. Mood and Affect: Mood and affect normal. Speech: Speech normal. Behavior: Behavior normal. Behavior is cooperative. Thought Content: Thought content normal. Cognition and Memory: Cognition and memory normal. Judgment: Judgment normal. Barriers and Strengths 12/14/2020 Barriers patient reports no obstacles or barriers to care Strengths financially stable;healthy coping skills;making positive behavioral changes (action stageof change);physically active;positive social support system;stable relationships Safety Harm to self: no suicidal ideation, intent or plan. Harm to others: no homicidal ideation, intent or plan. Emiliana Velazquez Behavioral Health Emergency Room Physician Assistant documented in this encounter Plan of Treatment Upcoming Encounters Date Type Department Care Team (Late st Contact Info) Description 07/26/2025 8:15 AM EST Office Visit [facility] [address] [phone] Quentin Mccarty DO [address] [place] [phone] documented as of this encounter Visit Diagnoses Diagnosis Recurrent major depressive disorder, in partial remission (HCC)- Primary documented in this encounter Additional Health Concerns Assessment Noted Time PHQ-9 Depression Total Score: 2 12/15/19 9:00 AM EDT PHQ-2 Depression Total Score: 1 12/15/19 9:00 AM EDT documented as of this encounter Care Teams Electric Truck Driver Relationship Specialty Start Date End Date Quentin Mccarty DO [address] [place] [id number] PCP - General Internal Medicine 08/02/20 Emiliana Velazquez Behavioral Health Emergency Room Physician Assistant Psychology 08/03/20 01/03/21 documented as of this encounter
--- OUTSIDE RECORDS SUMMARY | 2024-08-06 17:17 | XMS_ITS | Encounter Summary ---
Author Organization [facility] work ([facility]) Address [address] [place] [address] Care Team Providers Care A/C Technician Name Role Phone Quentin Mccarty DO Primary Care Provider [phone] Source Comments The information that you have received may contain highly confidential and/or federally protected health information. This information has been disclosed to you from records protected by [facility]. The law prohibits you from making any [...] information in error, please contact the sender immediately.[facility] ([facility]) Reason for Visit * Reason Comments Annual Exam Depression Anxiety Encounter Details Date Type Department Care Team (Late st Contact Info) Description 07/26/2024 8:15 AM EST Office Visit [facility] [address] [phone] Quentin Mccarty DO [address] [place] [phone] Health care maintenance (Primary Dx); Encounter for lipid screening for cardiovascular disease; Diabetes mellitus screening Social History Tobacco Use Types Packs/Day Years [...] how to find helpful health resources on [employer] internet. 3 07/26/2024 Alcohol and Drug Use [...] Recorded In the past 12 months has e [employer], gas, oil, or water [employer] threatened to shut off services in your home? No 07/26/2024 Sex and Gender Information Value Date Recorded Sex Assigned at Male 08/01/2020 12:55 PM EST Legal Sex Male 6:40 PM EDT Gender Identity Male 08/01/2020 12:55 PM EST Sexual Orientation Straight 08/01/2020 12 :55 PM EST documented as of this encounter Last Filed [...] Mass Index 31.81 07/26/2024 8:17 AM EST documented in this encounter Progress Notes * Quentin Mccarty, DO - 07/26/2024 8:15 AM EST PROGRESS NOTE CC: Napoleon Miller is a 38 y.o. male who is here for Annual Exam, Depression, and Anxiety Subjective The primary encounter diagnosis was Health care maintenance. Diagnoses of Encounter for lipid screening for cardiovascular disease and Diabetes mellitus screening were also pertinent to this visit. Patient presents for yearly exam. He feels well, anxiety controlled. Trying to stay active. Meds/PMFSHx: The following portions of the patient's history were reviewed and updated as appropriate: allergies, current medications, past family history, past medical history, past social history, past surgicalhistory and problem list. Imported documents from [employer] are reviewed. Patient Active Problem List Diagnosis Recurrent major depressive disorder, in partial remission (HCC) Current Outpatient Medications Medication Sig Dispense Refill albuterol (PROAIR HFA;PROVENTIL HFA;VENTOLIN HFA) 90 mcg/actuation inhaler Inhale 2 puffs every 6 (six) hours as needed for wheezing . 1 each 1 ALPRAZolam (XANAX) 1 mg tablet Take 1 tablet (1 mg total) by mouth nightly as needed for anxiety . Max Daily Amount: 1 mg 30 tablet 0 buPROPion (WELLBUTRIN SR) 200 mg 12 hr tablet Take 1 tablet (200 mg total) by mouth 2 (two) times aday . 180 tablet 3 sildenafiL (VIAGRA) 100 mg tablet Take 1 tablet (100 mg total) by mouth every 24 hours as needed for erectile dysfunction . 10 tablet 0 No current facility-administered medications for this visit. Family History Problem Relation Age of Onset Breast cancer Mother Remission Depression Mother Anxiety disorder Mother Hypertension Father Anxiety disorder Father Anxiety disorder Sister 3 of 4 Depression Sister 3 of 4 Heart disease Paternal Uncle Colon cancer Maternal Grandmother Colon cancer Maternal Grandfather Heart disease Paternal Grandmother Pancreatic cancer Paternal Grandfather Social History Socioeconomic History Marital status: Spouse name: Not on file Number of children: Not on file Years of education: Not on file Highest education level: Not on file Occupational History Not on file Tobacco Use Smoking status: Former Current packs/day: 0.00 Types: Cigarettes Quit date: 07/23/2001 Years since quittin.0 Smokeless tobacco: Former Types: Chew Quit date: 07/23/2014 Vaping Use Vaping status: Never Used Substance and Sexual Activity Alcohol use: Yes Alcohol/week: 3.0 standard drinks of alcohol Types: 3 Cans of beer per week Comment: 3-4 days per week/ 2-4 drinks Drug use: No Sexual activity: Yes Partners: Female control/protection: I.U.D., Vasectomy (partner) Other Topics Concern Not on file Social History Narrative Not on file Social Determinants of Health Financial Resource Strain: Low Risk (07/26/2024) Financial Resource Strain Sometimes people find that their income does not quite cover their living costs. In the last 12 months, has this happened to you?: No What is your current work situation?: Full-time work Food Insecurity: Low Risk (07/26/2024) Food Insecurity Within the past 12 months we worried whether our food would run out before we got the money to buy more: Never true Within the past 12 months the food we bought just didn't last and we didn't have money to get more:Never true Stress: Low Risk (07/26/2024) Stress Over the last 2 weeks, how often have you been bothered by the following problems: feeling nervous,anxious, on edge?: Several days Over the last 2 weeks, how often have you been bothered by the following problems: Not being able to stop or control worrying?: Several days Social Connections: Low Risk (07/26/2024) Social Connections How often do you feel isolated from others?: Some of the time Housing Stability: Low Risk (07/26/2024) Housing Stability Are you worried about losing your housing?: No In the past 12 months has the electric, gas, oil, or water company threatened to shut off services in your home?: No Past Medical History: Diagnosis Date Allergic Childhood Hay fever Anxiety and depression Asthma Childhood Pollen Asthma Headache Varicella Childhood ROS Review of Systems Constitutional: Negative for [...] headaches. Hematological: Negative for adenopathy. Psychiatric/Behavioral: Negative. Vitals: 07/26/24 0817 BP: 123/81 BP Location: Right arm Patient Position: Sitting Cuff Size: Large Adult Pulse: 86 Resp: 16 Temp: 98.1 ??F (36.7 ??C) TempSrc: Temporal SpO2: 97% Weight: (!) 110.9 kg (244 lb 6.4 oz) Height: 6' 1.5 (1.867 m) Physical Exam Physical Exam Vitals reviewed. Constitutional: Appearance: Normal appearance. He is well-developed. HENT: Head: Normocephalic and atraumatic. Right Ear: External ear normal. Left Ear: External ear normal. Cardiovascular: Rate and Rhythm: Normal rate and regular rhythm. Heart sounds: Normal heart sounds. Pulmonary: Effort: Pulmonary effort is normal. Breath sounds: Normal breath sounds. Abdominal: General: Bowel sounds are normal. There is no distension. Palpations: Abdomen is soft. Tenderness: There is no abdominal tenderness. Musculoskeletal: General: Normal range of motion. Cervical back: Normal range of motion and neck supple. Skin: General: Skin is warm and dry. Findings: No rash. Neurological: Mental Status: He is alert and oriented to person, place, and time. Psychiatric: Mood and Affect: Mood normal. Behavior: Behavior normal. Thought Content: Thought content normal. Judgment: Judgment normal. Physical exam depicts current exam findings after a complete exam was performed today Assessment and Plan Napoleon was seen today for annual exam, depression and anxiety. Diagnoses and all orders for this visit: Health care maintenance Comments: disucssed diet, exercise and screening will get routine blood work Encounter for lipid screening for cardiovascular disease - Lipid panel w/Reflex to Direct LDL Diabetes mellitus screening - Hemoglobin A1C Quentin Mccarty DO 07/26/2024 documented in this encounter Miscellaneous Notes * Result Encounter Note - Quentin Mccarty DO - 07/26/2024 8:15 AM EST Leila, Your lab results are normal. If you have any questions please feel free to call the office: [phone] documented in this encounter Plan of Treatment Upcoming Encounters Date Type Department Care Team (Late st Contact Info) Description 07/26/2025 8:15 AM EST Office Visit [facility] [address] [phone] Quentin Mccarty DO [address] [place] [address] documented as of this encounter Procedures Procedure Name Priority Date/Time Associated Diagnosis Comments HEMOGLOBIN A1C Routine 07/26/2024 8:38 AM EST Diabetes mellitus screening LIPID PANEL W/REFLEX TO DIRECT LDL Routine 07/26/2024 8:38 AM EST Encounter for lipid screening for cardiovascular disease documented in this encounter Results * Hemoglobin A1C (07/26/2024 8:38 AM EST) Hemoglobin A1C 5.1 <5.7 % 07/26/2024 3:22 PM EST [facility] Blood Blood specimen / Unknown Venipuncture / Unknown 07/26/2024 8:38 AM EST 07/26/2024 2:23 PM EST Narrative [facility] - 07/26/2024 3:22 PM EST Normal ?<5.7 % Pre-Diabetes ?5.7 - 6.4 % Indicative of Diabetes Mellitus ?? 6.5 % or greater us Quentin Mccarty DO LAB BLOOD ORDERABLES Final Resul t [facility] [address] [place] [address] * (ABNORMAL) Lipid panel w/Reflex to Direct LDL (07/26/2024 8:38 AM EST) Cholesterol 221(H) <200 mg/dL 07/26/2024 3:44 PM [facility] Triglycerides 124 <150 mg/dL 07/26/2024 3:44 PM [facility] HDL 61 >39 mg/dL 07/26/2024 3:44 PM [facility] LDL Calculated 135(H) <130 mg/dL 07/26/2024 3:44 PM [facility] Blood Blood specimen / Unknown Venipuncture / Unknown 07/26/2024 8:38 AM EST 07/26/2024 2:23 PM EST [facility] - 07/26/2024 3:44 PM EST RISK [...] Lifestyle Change if 160 - 189 us Quentin Mccarty DO LAB BLOOD ORDERABLES Final Resul t Performing Organization Address City/State/[facility] Co de Phone Number [facility] [address] [place] [address] documented in this encounter Visit Diagnoses Diagnosis Health care maintenance- Primary Encounter for lipid screening for cardiovascular disease Diabetes mellitus screening Screening for diabetes mellitus documented in this encounter Discontinued Medications Medication Sig Discontinue Reason Start Date End Da te buPROPion (WELLBUTRIN SR) 200 mg 12 hr tablet TAKE ONE TABLET BY MOUTH TWO TIMES A DAY Alternate therapy 08/24/2023 07/26/2024 documented as of this encounter Additional Health Concerns Assessment Noted Time PHQ-9 Depression Total Score: 2 07/26/19 25 8:20 AM EST PHQ-2 Depression Total Score: 2 07/26/19 25 8:20 AM EST documented as of this encounter Care Teams A/C Technician Relationship Specialty Start Date End Date Quentin Mccarty DO [address] [place], [place] [phone] PCP - General Internal Medicine 08/02/20 documented as of this encounter
--- OUTSIDE RECORDS SUMMARY | 2024-08-06 17:17 | XMS_ITS | Encounter Summary ---
Author Organization [facility] [employer] [facility] work ([facility]) Address [address] [place] [address] Care Team Providers Care Inpatient Pharmacist Name Role Phone Quentin Mccarty DO Primary Care Provider [phone] Source Comments The information that you have received may contain highly confidential and/or federally protected health information. This information has been disclosed to you from records protected by [facility]. The law prohibits you from making [...] information in error, please contact the sender immediately.[facility] ([facility]) Encounter Details Date Type Department Care Team (Late st Contact Info) Description 05/24/2021 Orders Only [facility] Primary Care [place] [address] [place] [address] Quentin Mccarty DO [address] [place] [address] Social History Tobacco Use Types Packs/Day Years Used Date Smoking Tobacco: Former Cigarettes Q uit: 07/23/2001 Smokeless Tobacco: Former Chew Quit: 07/23/2014 Alcohol Use Standard Drinks/Week Comments Yes 13 (1 standard drink = 0.6 oz pu re alcohol) 3-4 days per week/ 2-4 drinks PHQ-2 Answer Date Recorded PHQ-9 Total Score 4 01/04/2021 Alcohol and Drug Use Answer Date Record [...] Refills Last Filled Start Date End Date sildenafiL (VIAGRA) 100 MG tablet Take 1 tablet (100 mg total) by mouth daily as needed for erectile dysfunction for up to 30 days. 10 tablet 05/24/2021 documented in this encounter Plan of Treatment Upcoming Encounters Date Type Department Care Team (Late st Contact Info) Description 07/26/2025 8:15 AM EST Office Visit [facility] [address] [phone] Quentin Mccarty DO [address] [place] [address] documented as of this encounter Visit Diagnoses Not on filedocumented in this encounter Additional Health Concerns Assessment Noted Time PHQ-9 Depression Total Score: 4 01/05/20 21 10:00 AM EDT PHQ-2 Depression Total Score: 1 01/05/20 10:00 AM EDT documented as of this encounter Care Teams Inpatient Pharmacist Relationship Specialty Start Date End Date Quentin Mccarty DO [address] [place], [place] [phone] PCP - General Internal Medicine 08/02/20 documented as of this encounter
--- OUTSIDE RECORDS SUMMARY | 2024-08-06 17:17 | XMS_ITS | Encounter Summary ---
Author Organization [facility] work ([facility]) Address [address] [facility] [address] [place] [address] Care Team Providers Care Global Marketing Coordinator Name Role Phone Quentin Mccarty DO Primary Care Provider [phone] Source Comments The information that you have received may contain highly confidential and/or federally protected health information. This information has been disclosed to you from records protected by [facility]. The law prohibits you from making [...] information in error, please contact the sender immediately.[facility] ([facility]) Reason for Visit * Reason Comments Supportive Care Encounter Details Date Type Department Care Team (Latest Contact Info) Description 01/04/2021 10:30 AM EDT Clinical Support [facility] Primary Care [id number] [place] [address] Emiliana Velazquez Recurrent major depressive disorder, in [...] have Coronavirus / COVID-19? Unable to assess 01/04/2021 10:32 AM EDT documented as of this encounter Mental Status * Problems Bothering Patient in the Last 2 Weeks Question Answer Entry Date Author KRISTIN-7 Total Score 12 01/04/2021 10:00 AM EDT Emiliana Velazquez documented in this encounter Progress Notes * Emiliana Velazquez - 01/04/2021 10:30 AM EDT Behavioral Health Order Entry Representative Progress Note Name: Napoleon Miller : 1985 Date: 01/04/2021 Plan Encounter Diagnosis: 1. Recurrent major depressive disorder, in partial remission (HCC) Plan 01/04/2021 Intervention Type initial assessment and/or use of validated rating scales with patient (collaborative care);behavioral health care planning including revision to plan of care (collaborative care);provision of brief interventions using evidence based techniques (collaborative care);continuity of care with a designated member of the care team (collaborative care) Treatment Goals improve coping skills;improve relaxation skills;improve self- care routine;reduce anxiety symptoms Patient goal in their own words: Would like to continue therapy to address anxiety and talk about ways I can handle it. Patient motivation in their own words: Sessions have been helpful. Follow up 01/04/2021 Does the patient need follow up Yes Patient agrees to follow up visit/contact or referral to other services Yes Patient Agrees to try a new behavior in the next 7 days Yes If this is a follow up visit, is patient making progress towards their goal(s) Yes Resources Provided - Is the patient making progress in the self management of their chronic condition? N/A Return if symptoms worsen or fail to improve. Referral Referral 01/04/2021 Program Primary Care [facility] Type of visit Completion of [facility] Services/Final Session Closure Status Patient successfully or partially achieved goals-made some progress and needed higher level of care Type of contact Phone call with patient Start time with patient 10:30 AM End time with patient 10:57 AM Total time spent with patient (in minutes) 27 Reason for referral mental health concerns Assessment Clinical Impression: [facility] and pt had follow up visit by phone. Reviewed PHQ-9, pt scored in none/minimal sx range. Reviewed KRISTIN-7, pt scored in moderate range. 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 Pt reports that they have hired some new employees so he is hopeful this will help offload some of these tasks. Pt reports he has been taking more Xanax than usual, encouraged him to continue practicing relaxation techniques and setting boundaries at work likepreviously discussed as alternative. Pt shared that some things that have helped him cope have been taking vacation with family and focusing on what is within his control at work. [facility] and pt discussed treatment moving forward since this is final [facility] session. Pt has appt set up with Napoleon Pires at [facility]. He will let [facility] know if he needs more assistance/support in the future. Thanked [facility] for the support. Will update care team. Screening Results 01/04/2021 PHQ-9 Total Score 4 KRISTIN-7 Total Score 12 Mental Status Exam: Physical Exam Psychiatric: Attention and Perception: Attention and perception normal. Mood and Affect: Mood and affect normal. Speech: Speech normal. Behavior: Behavior normal. Behavior is cooperative. Thought Content: Thought content normal. Cognition and Memory: Cognition and memory normal. Judgment: Judgment normal. Barriers and Strengths 01/04/2021 Barriers pt reports difficulty managing mh symptoms Strengths financially stable;healthy communication skills;motivated for change (preparation stage of change);positive social support system;stable relationships Safety Harm to self: no suicidal ideation, intent or plan. Harm to others: no homicidal ideation, intent or plan. Emiliana Velazquez Behavioral Health Order Entry Representative documented in this encounter Plan of Treatment Upcoming Encounters Date Type Department Care Team (Late st Contact Info) Description 07/26/2025 8:15 AM EST Office Visit [facility] [address] [phone] Quentin Mccarty DO [address] [place] [address] [phone] documented as of this encounter Visit Diagnoses Diagnosis Recurrent major depressive disorder, in partial remission (HCC)- Primary documented in this encounter Additional Health Concerns Assessment Noted Time PHQ-9 Depression Total Score: 4 01/05/20 21 10:00 AM EDT PHQ-2 Depression Total Score: 1 01/05/20 21 10:00 AM EDT documented as of this encounter Care Teams Global Marketing Coordinator Relationship Specialty Start Date End Date Quentin Mccarty DO [address] [place] [id number] PCP - General Internal Medicine 08/02/20 documented as of this encounter
--- OUTSIDE RECORDS SUMMARY | 2024-08-06 17:17 | XMS_ITS | Encounter Summary ---
Author Organization [facility] ([facility]) Address [address] [facility] [address] [place] [address] Care Team Providers Care Senior Physician Name Role Phone Quentin Mccarty DO Primary Care Provider [phone] Source Comments The information that you have received may contain highly confidential and/or federally protected health information. This information has been disclosed to you from records protected by [facility]. The law prohibits you from making [...] information in error, please contact the sender immediately.[facility] ([facility]) Encounter Details Date Type Department Care Team (Late st Contact Info) Description 07/23/2023 10:25 AM [facility] [address] [place] [address] Encounter for lipid screening for cardiovascular disease; Diabetes mellitus screening Social History Tobacco Use Types Packs/Day Years Used Date Smoking Tobacco: Former Cigarettes Q uit: 07/23/2001 Smokeless Tobacco: Former Chew Quit: 07/23/2014 Alcohol Use Standard Drinks/Week Comments Yes 3 (1 standard drink = 0.6 oz pur e alcohol) 3-4 days per week/ 2-4 drinks PHQ-2 Answer Date Recorded PHQ-9 Total Score 2 07/23/2023 Social Connections Answer Date Recorded How often do you feel isolated from others? Hard ly ever 07/23/2023 Financial Resource Strain Answer Date R ecorded Sometimes people find that t heir income does not quite cover their living costs. In the last 12 months, has this happened to you? No 07/23/2023 What is your current work situation? Full-time w ork 07/23/2023 Stress Answer Date Recorded Over the last 2 weeks, how o ften have you been bothered by the following problems: feeling nervous, anxious, on edge? Several days 07/23/2023 Over the last 2 weeks, how o ften have you been bothered by the following problems: Not being able to stop or control worrying? Several days 07/23/2023 Food Insecurity Answer Date Recorded Within the past 12 months we worried whether our food would run out before we got the money to buy more. Never true Within the past 12 months th e food we bought just didn't last and we didn't have money to get more. Never true 07/23/2023 Safety and Environment Answer Date Carlos rded Do you feel physically and e motionally safe where you currently live? Yes 07/23/2023 Housing Stability Answer Date Recorded Are you worried about losing your housing? No 07/23/2023 In the past 12 months has th e electric, gas, oil, or water company threatened to shut off services in your home? No 07/23/2023 Health Literacy Answer Date Recorded How often do you need to hav e someone help you when you read instructions, pamphlets, or other written material from your doctor or pharmacist? Never 07/23/2023 I know how to find helpful health resources on [facility] internet. 1 07/23/2023 Alcohol and Drug Use Answer Date Record ed Females: In the past year, h ave you had more than 7 drinks in one week? Unrecognized value 07/23/2023 Males greater than 65 years of age: In the past year, have you had more than 7 drinks in one week? Unrecognized value 06/2023 Males less than or equal to 65 years of age: In the past year, have you had more than 14 drinks in one week? No 07/23/2023 In the past year, have you u sed any drugs other than those prescribed by your doctor? No 07/23/2023 Transportation Answer Date Recorded Has a lack of transportation kept you from medical appointments, meetings, work, or from getting things needed for daily living. Check all that apply. No 07/23/2023 Access Answer Date Recorded In the past year, have you b een unable to get childcare when it was really needed? No 07/23/2023 In the past year, have you b een unable to get clothing when it was really needed? No 07/23/2023 In the past year, have you b een unable to get medicine or any health care when it was really needed? No 07/23/2023 Do you have access to any of the following devices? Landline;Smartphone( cell phone with a touchscreen and internet);Computer(laptop, desktop, or tablet such as an iPad) 07/23/2023 Utilities Answer Date Recorded In the past 12 months has [employer], gas, oil, or water [employer] threatened to shut off services in your home? No 07/23/2023 Sex and Gender Information Value Date Recorded Sex Assigned at Male 08/01/2020 12:55 PM EST Legal Sex Male 6:40 PM EDT Gender Identity Male 08/01/2020 12:55 PM EST Sexual Orientation Straight 08/01/2020 12 :55 PM EST documented as of this encounter Miscellaneous Notes * Result Encounter Note - Quentin Mccarty DO - 07/23/2023 10:25 AM EST Leila, Your lab results are normal, but your cholesterol could be better.. If you have any questions please feel free to call the office: [phone] documented in this encounter Plan of Treatment Upcoming Encounters Date Type Department Care Team (Late st Contact Info) Description 07/26/2025 8:15 AM EST Office Visit [facility] [address] [phone] Quentin Mccarty DO [address] [place] [address] [phone] documented as of this encounter Procedures Procedure Name Priority Date/Time Associated Diagnosis Comments HEMOGLOBIN A1C Routine 07/23/2023 10:28 AM EST Diabetes mellitus screening LIPID PANEL W/REFLEX TO DIRECT LDL Routine 07/23/2023 10:28 AM EST Encounter for lipid screening for cardiovascular disease documented in this encounter Results * Hemoglobin A1C (07/23/2023 10:28 AM EST) Hemoglobin A1C 5.1 <5.7 % 07/23/2023 5:50 PM EST [facility] Blood Blood specimen / Unknown Venipuncture / Unknown 07/23/2023 10:28 AM EST 07/23/2023 10:28 AM EST Narrative [facility] - 07/23/2023 5:50 PM EST Normal ?<5.7 % Pre-Diabetes ?5.7 - 6.4 % Indicative of Diabetes Mellitus ?? 6.5 % or greater us Quentin Mccarty DO LAB BLOOD ORDERABLES Final Resul t [facility] [address] [place] [address] * (ABNORMAL) Lipid panel w/Reflex to Direct LDL (07/23/2023 10:28 AM EST) Cholesterol 221(H) <200 mg/dL 07/23/2023 5:39 PM EST [facility] Triglycerides 104 <150 mg/dL 07/23/2023 5:39 PM EST [facility] HDL 57 >39 mg/dL 07/23/2023 5:39 PM EST [facility] LDL Calculated 143(H) <130 mg/dL 07/23/2023 5:39 PM EST [facility] Blood Blood specimen / Unknown Venipuncture / Unknown 07/23/2023 10:28 AM EST 07/23/2023 10:28 AM EST Narrative [facility] - 07/23/2023 5:39 PM EST RISK CATEGORY 1: Patients having CHD or [...] DO LAB BLOOD ORDERABLES Final Resul t [facility] [address] [place] [address] documented in this encounter Visit Diagnoses Diagnosis Encounter for lipid screening for cardiovascular disease Diabetes mellitus screening Screening for diabetes mellitus documented in this encounter Additional Health Concerns Assessment Noted Time PHQ-9 Depression Total Score: 2 07/23/19 24 9:48 AM EST PHQ-2 Depression Total Score: 2 07/23/19 24 9:48 AM EST documented as of this encounter Care Teams Senior Physician Relationship Specialty Start Date End Date Quentin Mccarty DO [facility] [place] [address] PCP - General Internal Medicine 08/02/20 documented as of this encounter
--- OUTSIDE RECORDS SUMMARY | 2024-08-06 17:17 | XMS_ITS | Clinical Summary ---
Author Organization [facility] work ([facility]) Address [address] [facility] [address] [place] [address] Care Team Providers Care Spreader Box Operator Name Role Phone Quentin Mccarty DO Primary Care Provider [phone] Source Comments The information that you have received may contain highly confidential and/or federally protected health information. This information has been disclosed to you from records protected by [facility]. The law prohibits you from making [...] information in error, please contact the sender immediately.[facility] ([facility]) Allergies Active Allergy Reactions Criticality Noted Date [...] with any new, persistent, or worsening symptoms. Encounters Date Type Department Care Team Description 07/26/2024 8:15 AM EST Office Visit [facility] [address] [phone] Quentin Mccarty DO Health care maintenance (Primary Dx); Encounter for lipid screening for cardiovascular disease; Diabetes mellitus screening from Last 3 Months Immunizations Immunization Administration Dates Next Due COVID-19 mRNA (PF) ([employer], 2 dose series) 06/06,10/06/2020,09/13/2020 Influenza, Quadrivalent (IM) 04/03/2017 Influenza, Quadrivalent, Pre servative Free (IM) 03/31/2022 Influenza, Unspecified 04/03/2017,04/10/2016 Tdap 06/23/2014 Surgical History Surgery Date Site/Laterality Comments EYE SURGERY Laser / Dr. King Hung WISDOM TOOTH EXTRACTION ANUS SURGERY 3-4 procedures / [facility] Medical History Medical History Date Comments Anxiety and depression Allergic Childhood Hay fever Asthma Childhood Pollen Asthma Headache Varicella Childhood Family History Medical History Relation Name Comments Anxiety disorder Father Ciaran Hypertension Father Ciaran Colon cancer Maternal Grandfather Hen Colon cancer Maternal Grandmother Tayla Anxiety disorder Mother Sofia Breast cancer Mother Sofia Remission Depression Mother Sofia Pancreatic cancer Paternal Grandfather Heart disease Paternal Grandmother Heart disease Paternal Uncle Anxiety disorder Sister All 3 of 4 Depression Sister All 3 of 4 Relation Name Status Comments Father Ciaran Alive Maternal Grandfather Hen Maternal Grandmother Tayla Mother Sofia Alive Paternal Grandfather Paternal Grandmother Paternal Uncle Sister All Social History Tobacco Use Types Packs/Day Years [...] R ecorded Sometimes people find that t ir income does not quite cover their living [...] how to find helpful health resources on [facility]. 3 07/26/2024 Alcohol and Drug Use [...] Recorded In the past year, have you deon abdul unable to get childcare when it was really needed? No 07/26/2024 In the past year, have you b aidan unable to get clothing when it was really needed? No 07/26/2024 In the past year, have you b aidan unable to get medicine or any health care when it was really needed? No 07/26/2024 Do you have access to any of the following devices? Smartphone( cell phone with a touchscreen and internet);Computer(laptop, desktop, or tablet such as an iPad);Landline 07/26/2024 Utilities Answer Date Recorded In the past 12 months has [employer], gas, oil, or water [employer] threatened to shut off services in your home? No 07/26/2024 Sex and Gender Information Value Date Recorded Sex Assigned at Male 08/01/2020 12:55 PM EST Legal Sex Male 6:40 PM EDT Gender Identity Male 08/01/2020 12:55 PM EST Sexual Orientation Straight 08/01/2020 12 :55 PM EST Obstetrics History Last Filed Vital Signs Vital Sign Reading [...] Description 07/26/2025 8:15 AM EST Office Visit [facility] [address] [phone] Quentin Mccarty, DO [address] [place] [address] Health Maintenance Due Date Last Done Comments WELL ADULT EXAM 2006 COVID-19 Vaccine ( - season) 2024 06/06/2021, 10/06/2020, 09/13/2020 DTaP/Tdap/Td Vaccines (2 - Td or Tdap) 06/23/2024 06/23/2014 INFLUENZA VACCINES (#1) 2024 03/31/20, 04/03/2017, 04/03/2017, Additional history exists Postponed from 02/21/2024 (Medical Decision) Depression Screen 07/26/2025 07/26/2024 Social Determinants of Health 07/26/2025 07/26/2024 RSV Vaccine: Adults (60 yrs and older) and Patients (1 - 1-dose 75+ series) 2060 HEPATITIS C SCREEN Addressed 07/24/2011 Overridde n with the intention of not completing the topic HIV SCREEN Addressed 07/24/2011 Overridden with the intention of not completing the topic Hepatitis B Vaccine Discontinued Meningococcal B Vaccine Aged Out No l onger eligible based on patient's age to complete this topic Pneumococcal Vaccine: Pediatrics (0 to 5 Years) and At-Risk Patients (6 to 49 Years) Aged Out No longer eligible based on patient's age to complete this topic ROTAVIRUS VACCINES Aged Out No longer eligible based on patient's age to complete this topic Procedures Procedure Name Priority Date/Time Associated Diagnosis Comments HEMOGLOBIN A1C Routine 07/26/2024 8:38 AM EST Diabetes mellitus screening LIPID PANEL W/REFLEX TO DIRECT LDL Routine 07/26/2024 8:38 AM EST Encounter for lipid screening for cardiovascular disease from Last 3 Months Results * Hemoglobin A1C (07/26/2024 8:38 AM EST) Hemoglobin A1C 5.1 <5.7 % 07/26/2024 3:22 PM EST [facility] Blood Blood specimen / Unknown Venipuncture / Unknown 07/26/2024 8:38 AM EST 07/26/2024 2:23 PM EST [facility] - 07/26/2024 3:22 PM EST Normal ?<5.7 % Pre-Diabetes ?5.7 - 6.4 % Indicative of Diabetes Mellitus ?? 6.5 % or greater us Quentin Mccarty DO LAB BLOOD ORDERABLES Final Resul t [facility] [address] [place] [address] * (ABNORMAL) Lipid panel w/Reflex to Direct LDL (07/26/2024 8:38 AM EST) Cholesterol 221(H) <200 mg/dL 07/26/2024 3:44 PM EST [facility] Triglycerides 124 <150 mg/dL 07/26/2024 3:44 PM [facility] HDL 61 >39 mg/dL 07/26/2024 3:44 PM [facility] LDL Calculated 135(H) <130 mg/dL 07/26/2024 3:44 PM [facility] Blood Blood specimen / Unknown Venipuncture / Unknown 07/26/2024 8:38 AM EST 07/26/2024 2:23 PM EST [facility] - 07/26/2024 3:44 PM EST [...] ORDERABLES Final Resul t Performing Organization Address City/State/[facility] Co de Phone Number [facility] [address] [phone] from Last 3 Months Insurance [employer] Care Teams Spreader Box Operator Relationship Specialty Start Date End Date Quentin Mccarty DO [address] [place] [address] PCP - General Internal Medicine 08/02/20
--- OUTSIDE RECORDS SUMMARY | 2024-08-06 17:17 | XMS_ITS | Encounter Summary ---
Author Organization [facility] work ([facility]) Address [address] [facility] [address] [place] [address] Care Team Providers Care Denture Processor Name Role Phone Quentin Mccarty DO Primary Care Provider [phone] Emiliana Velazquez Unavailable Unavailable Source Comments The information that you have received may contain highly confidential and/or federally protected health information. This information has been disclosed to you from records protected by [facility]. The law prohibits you from making [...] information in error, please contact the sender immediately.[facility] ([facility]) Encounter Details Date Type Department Care Team (Late st Contact Info) Description 11/28/2020 Orders Only [facility] Primary Care [place] [address] [place] [address] Quentin Mccarty DO [address] [place], [place] [phone] Social History Tobacco Use Types Packs/Day Years [...] AM EDT documented as of this encounter Plan of Treatment Upcoming Encounters Date Type Department Care Team (Late st Contact Info) Description 07/26/2025 8:15 AM EST Office Visit [facility] [address] [phone] Quentin Mccarty DO [address] [place] [address] [phone] documented as of this encounter Visit Diagnoses Not on filedocumented in this encounter Additional Health Concerns Assessment Noted Time PHQ-9 Depression Total Score: 6 11/24/19 21 9:00 AM EDT PHQ-2 Depression Total Score: 2 11/24/19 21 9:00 AM EDT documented as of this encounter Care Teams Denture Processor Relationship Specialty Start Date End Date Quentin Mccarty DO [address] [place] [address] PCP - General Internal Medicine 08/02/20 Emiliana Velazquez Behavioral Health Coal [employer] Psychology 08/03/20 01/03/21 documented as of this encounter
--- OUTSIDE RECORDS SUMMARY | 2024-08-06 17:17 | XMS_ITS | Encounter Summary ---
Author Organization [facility] work ([facility]) Address [address] [place] [address] Care Team Providers Care Vice President Of Talent Acquisition Name Role Phone Quentin Mccarty DO Primary Care Provider [phone] Source Comments The information that you have received may contain highly confidential and/or federally protected health information. This information has been disclosed to you from records protected by [facility]. The law prohibits you from making any [...] contact the sender immediately.[facility] ([facility]) Reason for Visit * Reason Comments Annual Exam Encounter Details Date Type Department Care Team (Late st Contact Info) Description 07/23/2023 9:45 AM EST Office Visit [facility] PRIMARY CARE [address] [phone] Quentin Mccarty DO [address] [place] [address] Health care maintenance (Primary Dx); Encounter for [...] R ecorded Sometimes people find that t [employer] income does not quite cover their living [...] how to find helpful health resources on t internet. 1 07/23/2023 Alcohol and Drug Use [...] Recorded In the past 12 months has [facility] [employer], gas, oil, or water [employer] threatened to shut off services in your home? No 07/23/2023 Sex and Gender Information Value Date Recorded Sex Assigned at Male 08/01/2020 12:55 PM EST Legal Sex Male 6:40 PM EDT Gender Identity Male 08/01/2020 12:55 PM EST Sexual Orientation Straight 08/01/2020 12 :55 PM EST documented as of this encounter Last Filed Vital Signs Vital Sign Reading Time Taken Comments Blood Pressure 134/89 07/23/2023 9:46 AM EST Pulse 84 07/23/2023 9:46 AM EST Temperature 36.3 ??C (97.3 ??F) 07/23/2023 9:46 AM ES T Respiratory Rate 16 07/23/2023 9:46 AM EST Oxygen Saturation 98% 07/23/2023 9:46 AM EST Inhaled Oxygen Concentration - - Weight 107.6 kg (237 lb 3.2 oz) 07/23/2023 9:46 AM EST Height 188 cm (6' 2) 07/23/2023 9:46 AM EST Body Mass Index 30.45 07/23/2023 9:46 AM EST documented in this encounter Progress Notes * Quentin Mccarty, DO - 07/23/2023 9:45 AM EST PROGRESS NOTE CC: Napoleon Miller is a 37 y.o. male who is here for Annual Exam Subjective The primary encounter diagnosis was Health care maintenance. Diagnoses of Encounter for lipid screening for cardiovascular disease and Diabetes mellitus screening were also pertinent to this visit. Patient presents for yearly exam. He has been feeling well. Working full stack net developer. Meds/PMFSHx: The following portions of the patient's history were reviewed and updated as appropriate: allergies, current medications, past family history, past medical history, past social history, past surgicalhistory and problem list. Imported documents from [employer] and [employer] are reviewed. Patient Active Problem List Diagnosis ??? Recurrent major depressive disorder, in partial remission (HCC) Current Outpatient Medications Medication Sig Dispense Refill ??? albuterol (PROAIR HFA;PROVENTIL HFA;VENTOLIN HFA) 90 mcg/actuation inhaler Inhale 2 puffs every6 (six) hours as needed for wheezing . 1 each 1 ??? ALPRAZolam (XANAX) 1 mg tablet Take 1 tablet (1 mg total) by mouth nightly as needed for anxiety for up to 15 days . Max Daily Amount: 1 mg 15 tablet 0 ??? buPROPion (WELLBUTRIN SR) 200 MG 12 hr tablet Take 1 tablet (200 mg total) by mouth 2 (two) times a day. 180 tablet 3 ??? sildenafiL (VIAGRA) 100 MG tablet Take 1 tablet (100 mg total) by mouth every 24 hours as needed for erectile dysfunction . No more refills until f/u visit scheduled 10 tablet 0 No current facility-administered medications for this visit. Family History Problem Relation Age of Onset ??? Breast cancer Mother Remission ??? Depression Mother ??? Anxiety disorder Mother ??? Hypertension Father ??? Anxiety disorder Father ??? Anxiety disorder Sister 3 of 4 ??? Depression Sister 3 of 4 ??? Heart disease Paternal Uncle ??? Colon cancer Maternal Grandmother ??? Colon cancer Maternal Grandfather ??? Heart disease Paternal Grandmother ??? Pancreatic cancer Paternal Grandfather Social History Socioeconomic History ??? Marital status: Spouse name: Not on file ??? Number of children: Not on file ??? Years of education: Not on file ??? Highest education level: Not on file Occupational History ??? Not on file Tobacco Use ??? Smoking status: Former Packs/day: 0.00 Years: 10.00 Additional pack years: 0.00 Total pack years: 0.00 Types: Cigarettes Quit date: 07/23/2011 Years since quittin.0 ??? Smokeless tobacco: Former Types: Chew Quit date: 07/23/2014 Vaping Use ??? Vaping Use: Never used Substance and Sexual Activity ??? Alcohol use: Yes Alcohol/week: 3.0 standard drinks of alcohol Types: 3 Cans of beer per week Comment: 3-4 days per week/ 2-4 drinks ??? Drug use: No ??? Sexual activity: Yes Partners: Female control/protection: I.U.D. Other Topics Concern ??? Not on file Social History Narrative ??? Not on file Social Determinants of Health Financial Resource Strain: Low Risk (07/23/2023) Financial Resource Strain ??? Sometimes people find that their income does not quite cover their living costs. In the last 12months, has this happened to you?: No ??? What is your current work situation?: Full-time work Food Insecurity: Low Risk (07/23/2023) Food Insecurity ??? Within the past 12 months we worried whether our food would run out before we got the money to buy more: Never true ??? Within the past 12 months the food we bought just didn't last and we didn't have money to get more: Never true Stress: Low Risk (07/23/2023) Stress ??? Over the last 2 weeks, how often have you been bothered by the following problems: feeling nervous, anxious, on edge?: Several days ??? Over the last 2 weeks, how often have you been bothered by the following problems: Not being able to stop or control worrying?: Several days Social Connections: Low Risk (07/23/2023) Social Connections ??? How often do you feel isolated from others?: Hardly ever Past Medical History: Diagnosis Date ??? Allergic Childhood Hay fever ??? Anxiety and depression ??? Asthma Childhood Pollen Asthma ??? Headache ??? Varicella Childhood ROS Review of Systems Constitutional: [...] Hematological: Negative for adenopathy. Psychiatric/Behavioral: Negative. Vitals: 07/23/23 0946 BP: 134/89 BP Location: Right arm Patient Position: Sitting Cuff Size: Large Adult Pulse: 84 Resp: 16 Temp: 97.3 ??F (36.3 ??C) TempSrc: Temporal SpO2: 98% Weight: (!) 107.6 kg (237 lb 3.2 oz) Height: 6' 2 (1.88 m) Physical Exam Physical Exam Vitals reviewed. Constitutional: Appearance: He is well-developed. HENT: Head: Normocephalic and [...] oriented to person, place, and time. Psychiatric: Behavior: Behavior normal. Thought Content: Thought content normal. Judgment: Judgment normal. Physical exam depicts current exam findings after a complete exam was performed today Assessment and Plan Diagnoses and all orders for this visit: Health care maintenance Comments: discussed diet, exercise and screening will get routine blood work Encounter for lipid screening for cardiovascular disease - Lipid panel w/Reflex to Direct LDL; Future Diabetes mellitus screening - Hemoglobin A1C; Future Quentin Mccarty DO 07/23/2023 documented in this encounter Plan of Treatment Upcoming Encounters Date Type Department Care Team (Late st Contact Info) Description 07/26/2025 8:15 AM EST Office Visit [facility]IMARY [facility]ARE [address] [phone] Quentin Mccarty DO [address] [place] [address] documented as of this encounter Results * Hemoglobin A1C (07/23/2023 10:28 AM EST) Hemoglobin A1C 5.1 <5.7 % 07/23/2023 5:50 PM EST [facility] Blood Blood specimen / Unknown Venipuncture / Unknown 07/23/2023 10:28 AM EST 07/23/2023 10:28 AM EST Narrative [facility] - 07/23/2023 5:50 PM EST Normal ?<5.7 % Pre-Diabetes ?5.7 - 6.4 % Indicative of Diabetes Mellitus ?? 6.5 % or greater us Quentin Mccarty DO LAB BLOOD ORDERABLES Final Resul t [facility] [address] [place] [address] * (ABNORMAL) Lipid panel w/Reflex to Direct LDL (07/23/2023 10:28 AM EST) Cholesterol 221(H) <200 mg/dL 07/23/2023 5:39 PM [facility] Triglycerides 104 <150 mg/dL 07/23/2023 5:39 PM [facility] HDL 57 >39 mg/dL 07/23/2023 5:39 PM [facility] LDL Calculated 143(H) <130 mg/dL 07/23/2023 5:39 PM [facility] Blood Blood specimen / Unknown Venipuncture / Unknown 07/23/2023 10:28 AM EST 07/23/2023 10:28 AM [facility] - 07/23/2023 5:39 PM EST RISK [...] DO LAB BLOOD ORDERABLES Final Resul t [facility] [address] [place] [address] documented in this encounter Visit [...] documented as of this encounter Care Teams Vice President Of Talent Acquisition Relationship Specialty Start Date End Date Quentin Mccarty DO [address] [place] [address] PCP - General Internal Medicine 08/02/20 documented as of this encounter
--- OUTSIDE RECORDS SUMMARY | 2024-08-06 17:17 | XMS_ITS | Encounter Summary ---
Author Organization [facility] work ([facility]) Address [address] [address] Care Team Providers Care Kettle Room Helper Name Role Phone Quentin Mccarty DO Primary Care Provider [phone] Emiliana Velazquez Unavailable Unavailable Source Comments The information that you have received may contain highly confidential and/or federally protected health information. This information has been disclosed to you from records protected by [facility]. The law prohibits you from making [...] information in error, please contact the sender immediately.[facility] ([facility]) Reason for Visit * Reason Comments Supportive Care Encounter Details Date Type Department Care Team (Latest Contact Info) Description 11/23/2020 9:00 AM EDT Clinical Support [facility] Primary Care [place] [address] [place], [place] [phone] Emiliana Velazquez Recurrent major depressive disorder, in [...] Answer Entry Date Author KRISTIN-7 Total Score 6 11/23/2020 9:00 AM EDT Emiliana Velazquez documented in this encounter Progress Notes * Emiliana Velazquez - 11/23/2020 9:00 AM EDT Behavioral Health Plant Operations Worker Progress Note Name: Napoleon Miller : 1985 Date: 11/23/2020 Plan Encounter Diagnosis: 1. Recurrent major depressive disorder, in partial remission (HCC) Plan 11/23/2020 Intervention Type initial assessment and/or use of validated rating scales with patient (collaborative care);provision of brief interventions using evidence based techniques (collaborative care);continuity of care with a designated member of the care team (collaborative care) Treatment Goals improve coping skills;improve overall mood;improve relaxation skills;improve self-care routine;reduce anxiety symptoms Patient goal in their own words: Decrease panicked feeling and have more work/life balance. Patient motivation in their own words: Have seen some improvement. Follow up 11/23/2020 Does the patient need follow up Yes Patient agrees to follow up visit/contact or referral to other services Yes Patient Agrees to try a new behavior in the next 7 days Yes If this is a follow up visit, is patient making progress towards their goal(s) Yes Resources Provided Educational materials/psycho-educational materials Is the patient making progress in the self management of their chronic condition? N/A Return in about 3 weeks (around 12/14/2020). Referral Referral 11/23/2020 Program Primary Care [facility] Type of visit Follow up Type of contact Phone call with patient Start time with patient 9:00 AM End time with patient 9:30 AM Total time spent with patient (in minutes) 30 Reason for referral mental health concerns Assessment Clinical Impression: [facility] and pt met for follow up over phone. Reviewed PHQ-9 and KRISTIN-7, pt scored in mild range on both. Identified what pt feels has contributed to sx management. Reports that his son was evaluated and dx with ADHD, is feeling hopeful about him having support and treatment now. Pt reports that work has been stressful lately, they are trying to hire more employees to delegate tasks. Identified ways he has been trying to set more boundaries with work and home. Pt reflected that trying to set aside weekly time for himself would be helpful. Discussed how he communicate this to partner. [facility] will send family logistics meeting document through [employer] to help facilitate this conversation. Identified other strategies he has found helpful. Pt reports that panic attacks have decreased, butstill feels heightened anxiety about 2-4 days a weeks. Finds labeling cognitive distortions, listening to music and using tip the temperature techniques helpful. Discussed behavioral health plan moving forward, pt would like to continue counseling, will discuss referrals at next session. Rescheduled for 3 weeks. Screening Results 11/23/2020 PHQ-9 Total Score 6 KRISTIN-7 Total Score 6 Mental Status Exam: Physical Exam Psychiatric: Attention and Perception: Attention and perception normal. Mood and Affect: Mood and affect normal. Speech: Speech normal. Behavior: Behavior normal. Behavior is cooperative. Thought Content: Thought content normal. Cognition and Memory: Cognition and memory normal. Judgment: Judgment normal. Barriers and Strengths 11/23/2020 Barriers patient reports no obstacles or barriers to care Strengths financially stable;healthy communication skills;healthy coping skills;making positive behavioral changes (action stage of change);positive social support system;stable relationships Safety Harm to self: no suicidal ideation, intent or plan. Harm to others: no homicidal ideation, intent or plan. Emiliana Velazquez Behavioral Health Plant Operations Worker documented in this encounter Plan of Treatment Upcoming Encounters Date Type Department Care Team (Late st Contact Info) Description 07/26/2025 8:15 AM EST Office Visit [facility] PRIMARY CARE [address] [phone] Quentin Mccarty DO [address] [place] [address] documented as of this encounter Visit Diagnoses Diagnosis Recurrent major depressive disorder, in partial remission (HCC)- Primary documented in this encounter Additional Health Concerns Assessment Noted Time PHQ-9 Depression Total Score: 6 11/24/19 9:00 AM EDT PHQ-2 Depression Total Score: 2 11/24/19 9:00 AM EDT documented as of this encounter Care Teams Kettle Room Helper Relationship Specialty Start Date End Date Quentin Mccarty DO [address] [place] [address] PCP - General Internal Medicine 08/02/20 Emiliana Velazquez Behavioral Health Plant Operations Worker Psychology 08/03/20 01/03/21 documented as of this encounter
--- OUTSIDE RECORDS SUMMARY | 2024-08-06 17:17 | XMS_ITS | Encounter Summary ---
Author Organization [facility] work ([facility]) Address [address] [facility] [address] [place] [address] Care Team Providers Care Embossing Clerk Name Role Phone Quentin Mccarty DO Primary Care Provider [phone] Source Comments The information that you have received may contain highly confidential and/or federally protected health information. This information has been disclosed to you from records protected by [facility]. The law prohibits you from making [...] in error, please contact the sender immediately.[facility] ([facility]) Encounter Details Date Type Department Care Team (Late st Contact Info) Description 06/25/2021 Orders Only [facility] Primary Care [place] [address] [place] [address] Quentin Mccarty DO [address] [place] [address] Social History Tobacco Use Types Packs/Day Years [...] Refills Last Filled Start Date End Date amoxicillin-clavul anate (AUGMENTIN) 875-125 mg per tablet Take 1 tablet by mouth 2 (two) times a day for 5 days. 10 tablet 06/25/2021 06/30/2021 documented in this encounter Plan of Treatment Upcoming Encounters Date Type Department Care Team (Late st Contact Info) Description 07/26/2025 8:15 AM EST Office Visit [facility] [address] [address] Quentin Mccarty DO [address] [place] [address] [place] [address] documented as of this encounter Visit Diagnoses Not on filedocumented in this encounter Additional Health Concerns Assessment Noted Time PHQ-9 Depression Total Score: 4 01/05/20 21 10:00 AM EDT PHQ-2 Depression Total Score: 1 01/05/20 21 10:00 AM EDT documented as of this encounter Care Teams Embossing Clerk Relationship Specialty Start Date End Date Quentin Mccarty DO [address] [place] [address] PCP - General Internal Medicine 08/02/20 documented as of this encounter
--- OUTSIDE RECORDS SUMMARY | 2024-08-06 17:18 | XMS_ITS | Encounter Summary ---
Author Organization [facility] work ([facility]) Address [address] [facility] [address] [place] [address] Care Team Providers Care Lehr Tender Name Role Phone Quentin Mccarty DO Primary Care Provider [phone] Emiliana Velazquez Unavailable Unavailable Source Comments The information that you have received may contain highly confidential and/or federally protected health information. This information has been disclosed to you from records protected by [facility]. The law prohibits you from making any [...] information in error, please contact the sender immediately.[facility] ([facility]) Encounter Details Date Type Department Care Team (Latest Contact Info) Description 10/06/2020 1:50 PM EDT Immunization [facility] COVID Immunization Clinic - [address] [phone] Encounter for immunization (Primary Dx) Social History Tobacco Use Types Packs/Day Years Used Date Smoking Tobacco: Former Cigarettes Q uit: 07/23/2001 Smokeless Tobacco: Former Chew Quit: 07/23/2014 Alcohol Use Standard Drinks/Week Comments Yes 13 (1 standard drink = 0.6 oz pu re alcohol) 3-4 days per week/ 2-4 drinks PHQ-2 Answer Date Recorded PHQ-2 Score 6 09/19/2020 Alcohol and Drug Use Answer Date Record [...] have Coronavirus / COVID-19? Unable to assess 09/19/2020 11:08 AM EDT documented as of this encounter Plan of Treatment Upcoming Encounters Date Type Department Care Team (Late st Contact Info) Description 07/26/2025 8:15 AM EST Office Visit [facility] PRIMARY CARE [address] [address] Quentin Mccarty DO [address] [place] [address] documented as of this encounter Visit Diagnoses Diagnosis Encounter for immunization- Primary documented in this encounter Orders Immunization/Injection Count Last Ordered Date First Ordered Date PFIZER SARS-COV-2 VACCINE 1 10/06/2020 PFIZER SARS-COV-2 VACCINE 2ND DOSE APPT 1 0 10/06/2020 documented in this encounter Additional Health Concerns Assessment Noted Time PHQ-9 Depression Total Score: 6 09/20/19 10:00 AM EDT PHQ-2 Depression Total Score: 2 09/20/19 10:00 AM EDT documented as of this encounter Care Teams Lehr Tender Relationship Specialty Start Date End Date Quentin Mccarty DO [address] [place] [address] PCP - General Internal Medicine 08/02/20 Emiliana Velazquez Behavioral Health Training Specialist Psychology 08/03/20 01/03/21 documented as of this encounter
--- OUTSIDE RECORDS SUMMARY | 2024-08-06 17:18 | XMS_ITS | Encounter Summary ---
Author Organization [facility] work ([facility]) Address [address] [facility] [address] [place] [address] Care Team Providers Care Computer Network Specialist Name Role Phone Quentin Mccarty DO Primary Care Provider [phone] Emiliana Velazquez Unavailable Unavailable Source Comments The information that you have received may contain highly confidential and/or federally protected health information. This information has been disclosed to you from records protected by [facility]. The law prohibits you from making any [...] information in error, please contact the sender immediately.[facility] ([facility]) Encounter Details Date Type Department Care Team (Late st Contact Info) Description 10/11/2020 Orders Only [facility] Primary Care [place] [address] [place] [address] Quentin Mccarty DO [address] [place], [place] [phone] Social History Tobacco Use Types Packs/Day Years [...] PM EDT documented as of this encounter Ordered Prescriptions Prescription Sig Dispense Quantity Refills Last Filled Start Date End Date ALPRAZolam (XANAX) 1 MG tablet Take 1 tablet (1 mg total) by mouth nightly as needed for anxiety for up to 15 days. Max Daily Amount: 1 mg 15 tablet 10/11/2020 1 buPROPion (WELLBUTRIN SR) 200 MG 12 hr tablet Take 1 tablet (200 mg total) by mouth 2 (two) times a day. 60 tablet 11 10/11/2020 1 documented in this encounter Plan of Treatment Upcoming Encounters Date Type Department Care Team (Late st Contact Info) Description 07/26/2025 8:15 AM EST Office Visit [facility] [address] [facility] [place] [phone] Quentin Mccarty DO [address] [place], [place] [phone] documented as of this encounter Visit Diagnoses Not on filedocumented in this encounter Discontinued Medications Medication Sig Discontinue Reason Start Date End Da te buPROPion (WELLBUTRIN SR) 150 MG 12 hr tablet Take 1 tablet (150 mg total) by mouth 2 (two) times a day. 09/10/2020 10/11/2020 ALPRAZolam (XANAX) 1 MG tablet Take 1 tablet (1 mg total) by mouth nightly as needed for anxiety for up to 15 days. Max Daily Amount: 1 mg Reorder 10/04/2020 10/11/2020 documented as of this encounter Additional Health Concerns Assessment Noted Time PHQ-9 Depression Total Score: 5 10/11/19 2:00 PM EDT PHQ-2 Depression Total Score: 2 10/11/19 2:00 PM EDT documented as of this encounter Care Teams Computer Network Specialist Relationship Specialty Start Date End Date Quentin Mccarty DO [address] [place] [address] PCP - General Internal Medicine 08/02/20 Emiliana Velazquez Behavioral Health Pr Internship Psychology 08/03/20 01/03/21 documented as of this encounter
--- OUTSIDE RECORDS SUMMARY | 2024-08-06 17:18 | XMS_ITS | Encounter Summary ---
Author Organization [facility] work ([facility]) Address [address] [facility] [address] [place] [address] Care Team Providers Care Law Writer Name Role Phone Quentin Mccarty DO Primary Care Provider [phone] Source Comments The information that you have received may contain highly confidential and/or federally protected health information. This information has been disclosed to you from records protected by [facility]. The law prohibits you from making any [...] information in error, please contact the sender immediately.[facility] ([facility]) Encounter Details Date Type Department Care Team (Latest Contact Info) Description 07/31/2017 8:20 AM EST Ancillary Procedure [facility] [address] [place] [address] Knee instability, left Social History Tobacco Use Types Packs/Day Years Used Date Smoking Tobacco: Former Cigarettes 0 07/23/2001 - 07/23/2011 Smokeless Tobacco: Former Chew Quit: 07/23/2014 Alcohol Use Standard Drinks/Week Comments Yes 0 (1 standard drink = 0.6 oz pur e alcohol) 3-4 days per week/ 2-4 drinks Sex and Gender Information Value Date Recorded Sex Assigned at Male 08/01/2020 12:55 PM EST Legal Sex Male 6:40 PM EDT Gender Identity Male 08/01/2020 12:55 PM EST Sexual Orientation Straight 08/01/2020 12 :55 PM EST documented as of this encounter Plan of Treatment Upcoming Encounters Date Type Department Care Team (Late st Contact Info) Description 07/26/2025 8:15 AM EST Office Visit [facility]IMARY [facility] [address] [phone] Quentin Mccarty DO [address] [place] [address] [phone] documented as of this encounter Procedures Procedure Name Priority Date/Time Associated Diagnosis Comments XR KNEE 3 VW LEFT Routine 07/31/2017 8:2 8 AM EST Knee instability, left documented in this encounter Results * X-ray knee left 3 views (07/31/2017 8:28 AM EST) Impressions KENNY MILAN - 07/31/2017 8:28 AM EST to progress note for imaging results. Narrative KENNYGosia MILAN - 07/31/2017 8:28 AM EST Refer Slava Miranda MD IMG DIAGNOSTIC IMAGING ORDERAB LES Final Result KENNYGosia MILAN documented in this encounter Visit Diagnoses Diagnosis Knee instability, left documented in this encounter Additional Health Concerns Assessment Noted Time PHQ-9 Depression Total Score: 2 02/19/20 17 1:00 PM EDT documented as of this encounter Care Teams Law Writer Relationship Specialty [place] [address] [place] [id number] PCP - General Internal Medicine 07/23/16 03/15/18 documented as of this encounter
--- OUTSIDE RECORDS SUMMARY | 2024-08-06 17:18 | XMS_ITS | Encounter Summary ---
Author Organization [facility] [employer] [facility] work ([facility]) Address [address] [facility] [address] [place] [address] Care Team Providers Care Guide Dog Mobility Instructor Name Role Phone Unavailable Primary Care Provider Unavailabl e Source Comments The information that you have received may contain highly confidential and/or federally protected health information. This information has been disclosed to you from records protected by [facility]. The law prohibits you from making [...] information in error, please contact the sender immediately.[facility] ([facility]) Encounter Details Date Type Department Care Team (Late st Contact Info) Description 04/18/2013 Orders Only [facility] RESULTS [address] [place] [address] ProviderJose MD [address] [place] [address] Social History Tobacco Use Types Packs/Day Years Used Date Smoking Tobacco: Never Assessed Sex and Gender Information Value Date Recorded Sex Assigned at Male 08/01/2020 12:55 PM EST Legal Sex Male 6:40 PM EDT Gender Identity Male 08/01/2020 12:55 PM EST Sexual Orientation Straight 08/01/2020 12 :55 PM EST documented as of this encounter Plan of Treatment Upcoming Encounters Date Type Department Care Team (Late st Contact Info) Description 07/26/2025 8:15 AM EST Office Visit [facility] PRIMARY CARE [address] [address] Reuben Mccartyian, [address] [place] [address] documented as of this encounter Procedures Procedure Name Priority Date/Time Associated Diagnosis Comments CBC Routine 04/18/2013 12:35 PM EDT BASIC METABOLIC PANEL Routine 04/18/2013 12:35 PM EDT documented in this encounter Results * (ABNORMAL) CBC (04/18/2013 12:35 PM EDT) Auto WBC 7.27 4.40 - 11.30 k/mcL [facility] RBC 4.41(L) 4.50 - 5.90 m/mcL [facility] Hemoglobin 14.6 14 - 17.4 g/dL [facility] Hematocrit 41.7 41.5 - 50.4 % [facility] MCV 94.6 80.0 - 96.0 fL [facility] MCH 33.1 27.5 - 33.2 pg [facility] MCHC 35.0 33.4 - 35.5 g/dL [facility] RDW 11.8 11.3 - 15.3 % [facility] Platelets 216 145 - 445 k/mcL [facility] MPV 10.3 7.4 - 10.4 fL [facility] 04/18/2013 12:3 5 PM EDT us Historical Provider LAB BLOOD ORDERABLES Bobbi patel Result [facility] * (ABNORMAL) Basic Metabolic Panel (04/18/2013 12:35 PM EDT) Glucose 92 70 - 99 mg/dL [facility] BUN 11 9 - 20 mg/dL [facility] Creatinine 0.64(L) 0.70 - 1.50 mg/dL [facility] GFR MDRD Non- >60 [facility] GFR MDRD >60 [facility] GFR Comment Consider Cockcroft-Alber t equation (not MDRD) for drug dosing. Reported in units (mL/min/1.73m2 ) to normalize for average body surface area. Results for both /Othe r and Americans are reported. Values less than 60 are associated with chronic kidney disease. [facility] Sodium 138 134 - 142 mmol/L [facility] Potassium 4.3 3.5 - 5.0 mmol/L [facility] Chloride 100 98 - 107 mmol/L [facility] CO2 28 22 - 30 mmol/L [facility] Anion Gap 10 4 - 16 mmol/L [facility] Calcium 9.9 8.4 - 10.3 mg/dL [facility] 04/18/2013 12:3 5 PM EDT us Historical Provider LAB BLOOD ORDERABLES Bobbi l Result [facility] documented in this encounter Visit Diagnoses Not on filedocumented in this encounter
--- OUTSIDE RECORDS SUMMARY | 2024-08-06 17:18 | XMS_ITS | Encounter Summary ---
Author Organization [facility] [employer] [facility] work ([facility] Address [address] [facility] [address] [place] [address] Care Team Providers Care Security Coordinator Name Role Phone Quentin Mccarty DO Primary Care Provider [phone] Emiliana Velazquez Unavailable Unavailable Source Comments The information that you have received may contain highly confidential and/or federally protected health information. This information has been disclosed to you from records protected by [facility]. The law prohibits you from making [...] information in error, please contact the sender immediately.[facility] [facility] ([facility] Reason for Visit * Reason Comments Supportive Care Encounter Details Date Type Department Care Team (Latest Contact Info) Description 09/19/2020 10:30 AM EDT Clinical Support [facility] Primary Care [place] [address] [place], [place] [phone] Emiliana Velazquez Recurrent major depressive disorder, in [...] Entry Date Author KRISTIN-7 Total Score 5 09/19/2020 10:00 AM EDT Emiliana Velazquez documented in this encounter Progress Notes * Emiliana Velazquez - 09/19/2020 10:30 AM EDT Behavioral Health [employer] Financial Developer Progress Note Name: Napoleon Miller : 1985 Date: 09/19/2020 Plan Encounter Diagnosis: 1. Recurrent major depressive disorder, in partial remission (HCC) Plan 09/19/2020 Intervention Type initial assessment and/or use of validated rating scales with patient (collaborative care);provision of brief interventions using evidence based techniques (collaborative care);continuity of care with a designated member of the care team (collaborative care) Treatment Goals improve coping skills;improve overall mood;improve relaxation skills;improve self-care routine;reduce anxiety symptoms Patient goal in their own words: Would like to feel more confident and relaxed. ??Don't want to feel as overwhelmed and have more control of my mind and feelings. ??Want a plan or things to work on. Patient motivation in their own words: Things have been getting better. Follow up 09/19/2020 Does the patient need follow up Yes [...] N/A Return in about 3 weeks (around 10/10/2020). Referral Referral 09/19/2020 Type of visit Follow up Type of contact Video Visit Start time with patient 10:30 AM End time with patient 11:05 AM Total time spent with patient (in minutes) 35 Reason for referral pt Mental Health Condition Assessment Clinical Impression: [facility] and pt met for follow up. Reviewed PHQ-9 and KRISTIN-7 (both in mild range). Discussed what has helped improve pt's sx since last session. Pt reports that he has been using cognitive distortion list when experiencing worry and anxiety which has been helpful. Hasn't been taking Xanax as often in themornings and feels that anxiety is lessoning some in morning, is still taking Wellbutrin which has been helpful. Finds listening to music helpful in relaxing himself at start of work day. Identified triggers that led to panic attack last night. Pt noted that he was worried about his health. Continued to discuss coping tools during these moments, pt noted that talking with his might be helpful when feeling anxious. Pt shared that he has been limiting news since he notices this is trigger toanxiety. Pt also is putting effort into spending time with kids and finds this engaging and enjoyable for him. Discussed meditation practice and breathing exercises since pt states he hasn't practiced this on regular basis. Pt plans to try these exercises before next session. Will follow up in 3 weeks. Screening Results 09/19/2020 PHQ-9 Total Score 6 KRISTIN-7 Total Score 5 Mental Status Exam: Physical Exam Psychiatric: Attention and Perception: Attention and perception normal. Mood and Affect: Mood normal. Affect is tearful. Speech: Speech normal. Behavior: Behavior normal. Behavior is cooperative. Thought Content: Thought content normal. Cognition and Memory: Cognition and memory normal. Judgment: Judgment normal. Barriers and Strengths 09/19/2020 Barriers patient reports no obstacles or barriers to care Strengths financially stable;healthy communication skills;healthy coping skills;interesting in learning how to make changes;motivated for change;positive social support system;stable relationships Safety Harm to self: no suicidal ideation, intent or plan. Harm to others: no homicidal ideation, intent or plan. Emiliana Velazquez Behavioral Health [employer] Financial Developer documented in this encounter Plan of Treatment Upcoming Encounters Date Type Department Care Team (Late st Contact Info) Description 07/26/2025 8:15 AM EST Office Visit [facility] PRIMARY CARE [address] [phone] Quentin Mccarty DO [address] [place] [address] documented as of this encounter Visit Diagnoses Diagnosis Recurrent major depressive disorder, in partial remission (HCC)- Primary documented in this encounter Additional Health Concerns Assessment Noted Time PHQ-9 Depression Total Score: 6 09/20/19 21 10:00 AM EDT PHQ-2 Depression Total Score: 2 09/20/19 21 10:00 AM EDT documented as of this encounter Care Teams Security Coordinator Relationship Specialty Start Date End Date Quentin Mccarty DO [address] [place] [phone] PCP - General Internal Medicine 08/02/20 Emiilana Velazquez Behavioral Health [employer] Developer Psychology 08/03/20 01/03/21 documented as of this encounter
--- OUTSIDE RECORDS SUMMARY | 2024-08-06 17:18 | XMS_ITS | Encounter Summary ---
Author Organization [facility] [employer] [facility] work ([facility]) Address [address] [address] Care Team Providers Care Hot Repairman Name Role Phone Quentin Mccarty DO Primary Care Provider [phone] Emiliana Velazquez Unavailable Unavailable Source Comments The information that you have received may contain highly confidential and/or federally protected health information. This information has been disclosed to you from records protected by [facility]. The law prohibits you from making any [...] in error, please contact the sender immediately.[facility] [facility] ([facility]) Reason for Visit * Reason Comments Supportive Care Encounter Details Date Type Department Care Team (Latest Contact Info) Description 10/10/2020 2:30 PM EDT Clinical Support [facility] Primary Care [place] [address] [place], [place] [phone] Emiliana Velazquez Recurrent major depressive disorder, in [...] PM EDT documented as of this encounter Mental Status * Problems Bothering Patient in the Last 2 Weeks Question Answer Entry Date Author KRISTIN-7 Total Score 8 10/10/2020 2:00 PM EDT Emiliana Velazquez documented in this encounter Progress Notes * Emiliana Velazquez - 10/10/2020 2:30 PM EDT Behavioral Health Benefits Clerk Progress Note Name: Napoleon Miller : 1985 Date: 10/10/2020 Plan Encounter Diagnosis: 1. Recurrent major depressive disorder, in partial remission (HCC) Plan 10/10/2020 Intervention Type initial assessment and/or use of [...] balance. Patient motivation in their own words: I can try what we discussed. Follow up 10/10/2020 Does the patient need follow up Yes [...] N/A Return in about 3 weeks (around 10/31/2020). Referral Referral 10/10/2020 Type of visit Follow up Type of contact Video Visit Start time with patient 2:25 PM End time with patient 3:01 PM Total time spent with patient (in minutes) 36 Reason for referral pt Mental Health Condition Assessment Clinical Impression: [facility] and pt met for follow up. Reviewed PHQ-9 and KRISTIN-7 (pt scored in mild range). Pt reports that he is still experiencing intense anxiety about 3-4 times a week, but is able to pinpoint the reason more easily than before. Gave example from yesterday regarding situation with making a decision about son's schooling and treatment. Processed his emotions around this and identified the ways he and his have taken steps to best support his son. Pt reports that he did have Wellbutrin increased during appt today. Reports he did not practice therelaxation skills reviewed at last session, but did complete the 'self concept map.' Reflected thatit did help him recognize that even if he felt like he wasn't performing well enough in certain areas/roles, that there were many other important roles he was succeeding with. Pt states that work stress is still a large component of his anxiety, would like more suggestions on how to create more work/life balance. Notes that he and his do try to set boundaries around talking about work during home time or family gatherings, but he struggles with often thinking about and worrying about work when he is home. Discussed several strategies to try such as practicing 'helpful' vs 'unhelpful' thought labeling and taking action when he is is worried about something he does have control over in the moment. Also suggested worry timer technique, he plans to try this over his lunch break or before leaving work for the day. Pt would like to follow up again with [facility] in 3 weeks. Screening Results 10/10/2020 PHQ-9 Total Score 5 KRISTIN-7 Total Score 8 Mental Status Exam: Physical Exam Psychiatric: Attention and Perception: Attention and perception normal. Mood and Affect: Affect normal. Mood is anxious. Speech: Speech normal. Behavior: Behavior normal. Behavior is cooperative. Thought Content: Thought content normal. Cognition and Memory: Cognition and memory normal. Judgment: Judgment normal. Barriers and Strengths 10/10/2020 Barriers patient reports no obstacles or barriers to care Strengths financially stable;healthy communication skills;healthy coping skills;interesting in learning how to make changes;motivated for change;positive social support system;stable relationships Safety Harm to self: no suicidal ideation, intent or plan. Harm to others: no homicidal ideation, intent or plan. Emiliana Velazquez Behavioral Health Benefits Clerk documented in this encounter Plan of Treatment Upcoming Encounters Date Type Department Care Team (Late st Contact Info) Description 07/26/2025 8:15 AM EST Office Visit [facility] PRIMARY CARE [address] [phone] Quentin Mccarty DO [address] [place] [phone] documented as of this encounter Visit Diagnoses Diagnosis Recurrent major depressive disorder, in partial remission (HCC)- Primary documented in this encounter Additional Health Concerns Assessment Noted Time PHQ-9 Depression Total Score: 5 10/11/19 2:00 PM EDT PHQ-2 Depression Total Score: 2 10/11/19 2:00 PM EDT documented as of this encounter Care Teams Hot Repairman Relationship Specialty Start Date End Date Quentin Mccarty DO [address] [place] [phone] PCP - General Internal Medicine 08/02/20 Emiliana Velazquez Behavioral Health Benefits Clerk Psychology 08/03/20 01/03/21 documented as of this encounter
--- OUTSIDE RECORDS SUMMARY | 2024-08-06 17:18 | XMS_ITS | Encounter Summary ---
Author Organization [facility] work ([facility]) Address [address] [facility] [address] [place] [address] Care Team Providers Care Crossword Puzzle Maker Name Role Phone Unavailable Primary Care Provider Unavailabl e Source Comments The information that you have received may contain highly confidential and/or federally protected health information. This information has been disclosed to you from records protected by [facility]. The law prohibits you from making [...] contact the sender immediately.[facility] ([facility]) Encounter Details Date Type Department Care Team (Late st Contact Info) Description 01/21/2013 Historical Note [facility] HISTORICAL [address] [place] [address] Provider, MD Jose Social History Tobacco Use Types Packs/Day Years Used Date Smoking Tobacco: Never Assessed Sex and Gender Information Value Date Recorded Sex Assigned at Male 08/01/2020 12:55 PM EST Legal Sex Male 6:40 PM EDT Gender Identity Male 08/01/2020 12:55 PM EST Sexual Orientation Straight 08/01/2020 12 :55 PM EST documented as of this encounter Progress Notes * Historical Provider, - 09/20/2014 4:00 PM EDT PATIENT: [facility] REC #: [id number] DATE OF ADMISSION: 01/21/2013DATE OF DISCHARGE: DATE OF : 1985UNIT#/ROOM #: [facility] EMERGENCY DEPARTMENTPATIENT TYPE: E [facility] EM[facility] DATE: 01/21/2013 The patient was seen primarily by Geena Powell, physician high school assistant principal. Please see T-sheet for full history physical examination. HISTORY OF PRESENT ILLNESS: The patient presents with worsening rectal pain. Had a perirectal abscess which was draining and was seen at a [facility]. Started on antibiotics. Cultures were obtained. The patient states that it continued to drain, but symptoms improved while he was on antibiotics. Then over the last day or so, has had marked worsening and swelling of the area with increased pain. PHYSICAL EXAMINATION: The patient has a 3 x 2 area of tender fluctuance in the left perianal area. HOSPITAL COURSE: Evaluated by surgery here in the emergency department. PROCEDURE: vice president of software engineering under my supervision, using nitrous oxide anxiolysis and local anesthesia using 1% lidocaine topically, the wound abscess was drained and packed. The patient tolerated the procedure well. MEDICAL DECISION MAKING: This is a patient who presents with perirectal abscess. Drained here in the emergency department. Continue on antibiotics. Was discharged with pain medications and stool softeners. Follow up with surgeon early next week. DIAGNOSIS: Perirectal abscess, drained. DISPOSITION: The patient is stable for discharge. Physician:Christiano Beltran MD Dictated By: MD HODAN Reyes/Mike [id number] Electronic Signatures: Christiano Beltran) (Signed on 01/23/2013 07:46) Authored Interfaced from, [employer] (Other) (Entered on 01/21/2013 17:56) Entered Last Updated: 01/23/2013 07:46 by Christiano Beltran () documented in this encounter Plan of Treatment Upcoming Encounters Date Type Department Care Team (Late st Contact Info) Description 07/26/2025 8:15 AM EST Office Visit [facility] PRIMARY CARE [address] [address] Quentin Mccarty DO [address] [place] [address] documented as of this encounter Visit Diagnoses Not on filedocumented in this encounter
--- OUTSIDE RECORDS SUMMARY | 2024-08-06 17:18 | XMS_ITS | Encounter Summary ---
Author Organization [facility] [employer] [facility] work ([facility]) Address [address] [facility] [facility] [place] [address] Care Team Providers Care Welder Gas Automatic Name Role Phone Quentin Mccarty DO Primary Care Provider [phone] Source Comments The information that you have received may contain highly confidential and/or federally protected health information. This information has been disclosed to you from records protected by [facility]. The law prohibits you from making any further disclosure of this information unless further disclosure is expressly permitted by the written consent of the person to whom it pertains or is authorized by the Confidentiality of HIV-Related Information Act. A general authorization for the release of medical or other information is not sufficient. This information may include information related to diagnosis and/or treatment of HIV, mental health, or drug and alcohol-related conditions. Any disclosure, dissemination, distribution, or copying of this information is strictly prohibited. If you feel that you have received this information in error, please contact the sender immediately.[facility] [employer] [facility] ([facility]) Reason for Visit * Reason Comments Follow-up 6 week -Anxiety / No concerns Encounter Details Date Type Department Care Team ([facility] st Contact Info) Description 09/10/2016 11:30 AM EDT Office Visit [facility] Primary Care [place] [facility] [place], [place] [phone] Quentin Mccarty DO [address] [place] [address] Anxiety (Primary Dx) Social History Tobacco Use Types [...] Sign Reading Time Taken Comments Blood Pressure 120/76 09/10/2016 11:23 AM EDT Pulse 55 09/10/2016 11:23 AM EDT Temperature 36.6 ??C (97.8 ??F) 09/10/2016 11:23 AM E DT Respiratory Rate 14 09/10/2016 11:23 AM EDT Oxygen Saturation 98% 09/10/2016 11:23 AM EDT Inhaled Oxygen Concentration - - Weight 106.1 kg (234 lb) 09/10/2016 11:23 AM EDT Height 189.2 cm (6' 2.5) 09/10/2016 11:23 AM ED T Body Mass Index 29.64 09/10/2016 11:23 AM EDT documented in this encounter Ordered Prescriptions Prescription Sig Dispense Quantity Refills Last Filled Start Date End Date escitalopram (LEXAPRO) 10 MG tablet Take 1.5 tablets (15 mg total) by mouth daily for 90 days. 45 tablet 2 09/10/2016 7 documented in this encounter Progress Notes * Quentin Mccarty, - 09/10/2016 11:30 AM EDT PROGRESS NOTE CC: Napoleon Miller is a 30 y.o. male who is here for Follow-up (6 week - Anxiety / No concerns ) Subjective The encounter diagnosis was Anxiety. Patient presents for follow up. Feeling much better since starting his medication, only using Xanaxsporadically, and is seeing a counselor weekly. He has been less on edge, and enjoying life more. He also found out his is with their second child as well. Meds/PMFSHx: The following portions of the patient's history were reviewed and updated as appropriate: allergies, current medications, past family history, past medical history, past social history, past surgicalhistory and problem list. Imported documents from [employer] and [employer] are reviewed. There is no problem list on file for this patient. Current Outpatient Prescriptions Medication Sig Dispense Refill ??? ALPRAZolam (XANAX) 0.5 MG tablet Take 1 tablet (0.5 mg total) by mouth nightly as needed for anxiety for up to 20 doses. 20 tablet 0 ??? escitalopram (LEXAPRO) 10 MG tablet Take 1.5 tablets (15 mg total) by mouth daily for 90 days. 45 tablet 2 No current facility-administered medications for this visit. ROS Review of Systems Constitutional: Negative for [...] and headaches. Hematological: Negative for adenopathy. Psychiatric/Behavioral: The patient is nervous/anxious. Vitals: 09/10/16 1123 BP: 120/76 BP Location: Left arm Patient Position: Sitting Cuff Size: Large Adult Pulse: 55 Resp: 14 Temp: 97.8 ??F (36.6 ??C) TempSrc: Oral SpO2: 98% Weight: (!) 234 lb (106.1 kg) Height: 6' 2.5 (1.892 m) Physical Exam Physical Exam Constitutional: He is oriented to person, place, and time. He appears well- developed and well-nourished. HENT: Head: Normocephalic and atraumatic. Neck: Normal range of motion. Cardiovascular: Normal rate and regular rhythm. Pulmonary/Chest: Effort normal and breath sounds normal. Musculoskeletal: Normal range of motion. Neurological: He is alert and oriented to person, place, and time. Skin: Skin is warm and dry. Psychiatric: He has a normal mood and affect. His behavior is normal. Judgment and thought content normal. Vitals reviewed. Assessment and Plan Diagnoses and all orders for this visit: Anxiety Comments: Will continue Lexapro, increase dose to 15 mg and reassess in 6 weeks. Continue prn Xanax and counseling. Other orders - escitalopram (LEXAPRO) 10 MG tablet; Take 1.5 tablets (15 mg total) by mouth daily for 90 days. Quentin Mccarty DO 09/10/2016 documented in this encounter Plan of Treatment Upcoming Encounters Date Type Department Care Team (Late st Contact Info) Description 07/26/2025 8:15 AM EST Office Visit [facility] PRIMARY CARE [address] [phone] Quentin Mccarty DO [address] [place] [phone] documented as of this encounter Visit Diagnoses Diagnosis Anxiety- Primary Anxiety state, unspecified documented in this encounter Discontinued Medications Medication Sig Discontinue Reason Start Date End Da te escitalopram (LEXAPRO) 10 MG tablet Take 1 tablet (10 mg total) by mouth daily for 90 days. Reorder 08/29/2016 09/10/2016 documented as of this encounter Care Teams Welder Gas Automatic Relationship Specialty Start Date End Date Quentin Mccarty DO [address] [place] [address] PCP - General Internal Medicine 07/23/16 03/15/18 documented as of this encounter
--- OUTSIDE RECORDS SUMMARY | 2024-08-06 17:18 | XMS_ITS | Encounter Summary ---
Author Organization [facility] [employer] [facility] work ([facility]) Address [address] [facility] [address] [place] [address] Care Team Providers Care Cone Examiner Name Role Phone Unavailable Primary Care Provider Unavailabl e Source Comments The information that you have received may contain highly confidential and/or federally protected health information. This information has been disclosed to you from records protected by [facility]. The law prohibits you from making [...] information in error, please contact the sender immediately.[facility] ([facility]) Encounter Details Date Type Department Care Team (Late st Contact Info) Description 08/29/2013 Orders Only [facility] RESULTS [address] [place] [address] ProviderJose MD [address] [place] [id number] Social History Tobacco Use Types Packs/Day [...] EST Office Visit [facility] PRIMARY CARE [place] [address] [place], [place] [address] [phone] Quentin Mccarty [address] [place] [address] documented as of this encounter Procedures Procedure Name Priority Date/Time Associated Diagnosis Comments CBC AND DIFFERENTIAL Routine 08/29/2013 1:22 PM EDT BASIC METABOLIC PANEL Routine 08/29/2013 1:22 PM EDT documented in this encounter Results * (ABNORMAL) CBC and differential (08/29/2013 1:22 PM EDT) Auto WBC 6.96 4.40 - 11.30 k/mcL [facility] RBC 4.60 4.50 - 5.90 m/mcL [facility] Hemoglobin 15.1 14 - 17.4 g/dL [facility] Hematocrit 43.7 41.5 - 50.4 % [facility] MCV 95.0 80.0 - 96.0 fL [facility] MCH 32.8 27.5 - 33.2 pg [facility] MCHC 34.6 33.4 - 35.5 g/dL [facility] RDW 12.0 11.3 - 15.3 % [facility] Platelets 223 145 - 445 k/mcL [facility] MPV 10.7(H) 7.4 - 10.4 fL [facility] Neutrophils Relative Percent 67 37 - 77 % [facility] Lymphocytes Relative Percent 25 10 - 44 % [facility] Monocytes Relative Percent 7 2 - 15 % [facility] Eosinophils Relative Percent 1 0 - 7 % [facility] Basophils Relative Percent 0 0 - 2 % [facility] Absolute Neutrophil Count 4.63 2.00 - 9.30 k/mcL [facility] Absolute Lymphocyte Count 1.74 0.60 - 3.40 k/mcL [facility] Absolute Monocyte Count 0.51 0.00 - 1.50 k/mcL [facility] Absolute Eosinophil Count 0.06 0.00 - 0.70 k/mcL [facility] Absolute Basophil Count 0.02 0.00 - 0.20 k/mcL [facility] 08/29/2013 1:22 PM EDT Historical Provider LAB BLOOD ORDERABLES Bobbi l Result Performing Organization Address City/[facility] Co de Phone Number [facility] * Basic Metabolic Panel (08/29/2013 1:22 PM EDT) Glucose 95 70 - 99 mg/dL [facility] BUN 11 9 - 20 mg/dL [facility] Creatinine 0.72 0.70 - 1.50 mg/dL [facility] GFR MDRD Non- >60 [facility] GFR MDRD >60 [facility] GFR Comment Consider Cockcroft-Alber t equation (not MDRD) for drug dosing. Reported in units (mL/min/1.73m2 ) to normalize for average body surface area. Results for both /Othe r and Americans are reported. Values less than 60 are associated with chronic kidney disease. [facility] Sodium 137 134 - 142 mmol/L [facility] Potassium 3.9 3.5 - 5.0 mmol/L [facility] Chloride 99 98 - 107 mmol/L [facility] CO2 27 22 - 30 mmol/L [facility] Anion Gap 11 4 - 16 mmol/L [facility] Calcium 9.6 8.4 - 10.3 mg/dL [facility] 08/29/2013 1:22 PM EDT Historical Provider LAB BLOOD ORDERABLES Bobbi l Result [facility] documented in this encounter Visit Diagnoses Not on filedocumented in this encounter
--- OUTSIDE RECORDS SUMMARY | 2024-08-06 17:18 | XMS_ITS | Encounter Summary ---
Author Organization [facility] work ([facility]) Address [address] [facility] [address] [place] [address] Care Team Providers Care Guideman Name Role Phone Quentin Mccarty DO Primary Care Provider [phone] Source Comments The information that you have received may contain highly confidential and/or federally protected health information. This information has been disclosed to you from records protected by [facility] [place]. The law prohibits you from making any [...] information in error, please contact the sender immediately.[facility] ([facility]) Reason for Visit * Reason Comments Earache left Encounter Details Date Type Department Care Team (Late st Contact Info) Description 02/18/2017 1:30 PM EDT Office Visit [facility] Primary Care [place] [address] [place] [address] Josefa Ceballos, [place] [address] [place] [address] Acute otitis externa of left ear, unspecified type (Primary Dx); Recurrent major depressive disorder, in partial remission (HCC) Social History Tobacco Use Types Packs/Day Years [...] Sign Reading Time Taken Comments Blood Pressure 112/62 02/18/2017 1:38 PM EDT Pulse 86 02/18/2017 1:38 PM EDT Temperature 36.8 ??C (98.3 ??F) 02/18/2017 1:38 PM ED T Respiratory Rate - - Oxygen Saturation 98% 02/18/2017 1:38 PM EDT Inhaled Oxygen Concentration - - Weight 112 kg (247 lb) 02/18/2017 1:38 PM EDT Height 189.2 cm (6' 2.5) 02/18/2017 1:38 PM EDT Body Mass Index 31.29 02/18/2017 1:38 PM EDT documented in this encounter Ordered Prescriptions Prescription Sig Dispense Quantity Refills Last Filled Start Date End Date ciprofloxacin-dexa methasone (CIPRODEX) 0.3-0.1 % otic suspensionIndicati ons:Acute otitis externa of left ear, unspecified type Instill 4 drops into the left ear 2 (two) times a day for 5 days. 7.5 mL 02/18/2017 7 documented in this encounter Progress Notes * Josefa Ceballos - 02/18/2017 1:30 PM EDT PROGRESS NOTE CC: Napoleon Miller is a 31 y.o. male who is here for Earache (left) Subjective The primary encounter diagnosis was Acute otitis externa of left ear, unspecified type. A diagnosisof Recurrent major depressive disorder, in partial remission (HCC) was also pertinent to this visit. This is a 31 year old CM with PMH of anxiety and depression who presents today with left earache x couple weeks. Experiencing pimple in left ear x couple weeks. Experiencing left ear pain and can feel scab present on outside of ear canal. Associated with left neck swelling and tenderness. Admits to decreased hearing but associates this with peroxide use. Attempted peroxide, debrox, and inserting tweezers into ear to remove scab without any relief. Denies any fever, chills, drainage, or tinnitus. Symptoms of depression have improved with increase in effexor dose. States he usually has CBT appointments weekly but hasn't recently due to vacation but plans to re-initiate this routine. Denies anysuicidal ideation, homicidal ideation, or self harm. Takes xanax once nightly for anxiety. Meds/PMFSHx: The following portions of the patient's history were reviewed and updated as appropriate: allergies, current medications, past family history, past medical history, past social history, past surgicalhistory and problem list. Imported documents from [employer] are reviewed. Patient Active Problem List Diagnosis ??? Recurrent major depressive disorder, in partial remission (HCC) ??? Acute otitis externa of left ear Current Outpatient Prescriptions Medication Sig Dispense Refill ??? ALPRAZolam (XANAX) 0.5 MG tablet Take 1 tablet (0.5 mg total) by mouth nightly as needed for anxiety for up to 30 doses. 30 tablet 0 ??? venlafaxine (EFFEXOR) 75 MG tablet Take 1 tablet (75 mg total) by mouth 2 (two) times a day for90 days. 60 tablet 2 ??? ciprofloxacin-dexamethasone (CIPRODEX) 0.3-0.1 % otic suspension Instill 4 drops into the left ear 2 (two) times a day for 5 days. 7.5 mL 0 No current facility-administered medications for this visit. ROS Review of Systems Constitutional: Negative for activity change, appetite change, chills, diaphoresis, fatigue, fever and unexpected weight change. HENT: Positive for ear pain. Negative for congestion, dental problem, ear discharge, nosebleeds, postnasal drip, rhinorrhea, sinus pressure, sneezing and sore throat. Eyes: Negative for photophobia, pain, discharge, redness, itching and visual disturbance. Respiratory: Negative for cough, chest tightness, shortness of breath and wheezing. Cardiovascular: Negative for chest pain, palpitations and leg swelling. Gastrointestinal: Negative for abdominal distention, abdominal pain, blood in stool, constipation, diarrhea, nausea and vomiting. Genitourinary: Negative for difficulty urinating, dysuria, flank pain, frequency, hematuria and urgency. No nocturia. Musculoskeletal: Negative for arthralgias, back pain, gait problem, joint swelling, myalgias, neck pain and neck stiffness. Skin: Negative for color change, rash and wound. Allergic/Immunologic: Negative for environmental allergies and food allergies. Neurological: Negative for dizziness, tremors, seizures, syncope, weakness, light-headedness, numbness and headaches. Hematological: Negative for adenopathy. Does not bruise/bleed easily. Psychiatric/Behavioral: Positive for sleep disturbance. Negative for agitation, decreased concentration, dysphoric mood, self-injury and suicidal ideas. The patient is not nervous/anxious. States he can't sleep if he doesn't take xanax due to racing thoughts when he lays down to sleep. Hasn't tried belsomra as recommended. Vitals: 02/18/17 1338 BP: 112/62 Pulse: 86 Temp: 98.3 ??F (36.8 ??C) SpO2: 98% Weight: (!) 247 lb (112 kg) Height: 6' 2.5 (1.892 m) Physical Exam Physical Exam Constitutional: He is oriented to person, place, and time. He appears well- developed and well-nourished. No distress. HENT: Head: Normocephalic and atraumatic. Right Ear: External ear normal. Left Ear: External ear normal. Nose: Nose normal. Mouth/Throat: Oropharynx is clear and moist. No oropharyngeal exudate. Tympanic membrane pearly trent bilaterally and without erythema, effusion, bulging or drainage. Bilateral canals patent. Left ear canal with dry flaky skin, erythema, and scant amount of white drainage. No tonsillar enlargement. Uvula midline. No preauricular, postauricular, occipital, submandibular, tonsillar or submental lymphadenopathy. Eyes: Conjunctivae and EOM are normal. Pupils are equal, round, and reactive to light. Right eye exhibits no discharge. Left eye exhibits no discharge. Neck: Normal range of motion. Neck supple. Cardiovascular: Normal rate, regular rhythm and normal heart sounds. Exam reveals no gallop and no friction rub. No murmur heard. Pulmonary/Chest: Effort normal and breath sounds normal. No respiratory distress. He has no wheezes. He has no rales. He exhibits no tenderness. Musculoskeletal: Normal range of motion. He exhibits no edema or tenderness. No gait abnormality. Lymphadenopathy: He has no cervical adenopathy. Neurological: He is alert and oriented to person, place, and time. Skin: Skin is warm and dry. No rash noted. He is not diaphoretic. No erythema. No pallor. Psychiatric: He has a normal mood and affect. His behavior is normal. Judgment and thought content normal. Vitals reviewed. Assessment and Plan Problem List Items Addressed This Visit Nervous Acute otitis externa of left ear - Primary Ciprodex 0.3-0.1% 4 gtts to left ear BID x 5 days. Recommend avoiding inserting any objects into ear as well as avoiding insertion of peroxide and debrox into ear. Explained that damaging skin in earcanal can provoke bacterial and/or fungal growth. To dry ear with towel and finger following bathing. To call/return to office with any new, persistent, or worsening symptoms. Relevant Medications ciprofloxacin-dexamethasone (CIPRODEX) 0.3-0.1 % otic suspension Other Recurrent major depressive disorder, in partial remission (HCC) Symptoms improved as per patient. Continue effexor 75 mg oral BID. Recommend he return to his CBT and previous routine of once weekly for symptom improvement. Taking xanax once daily to sleep. Discussed belsomra as previously recommended by Dr. Mccarty and patient will consider. To return in 3 months or sooner if needed. To call/return to office with any new or worsening symptoms. Patient agreeable with plan of care. [place] 02/18/2017 documented in this encounter Miscellaneous Notes * Assessment & Plan Note - Josefa Ceballos - 02/18/2017 2:14 PM EDTAssociated Problem(s): Recurrent major depressive disorder, in partial remission (HCC) Symptoms improved as per patient. Continue effexor 75 mg oral BID. Recommend he return to his CBT and previous routine of once weekly for symptom improvement. Taking xanax once daily to sleep. Discussed belsomra as previously recommended by Dr. Mccarty and patient will consider. * Assessment & Plan Note - Josefa Ceballos - 02/18/2017 2:10 PM EDTAssociated Problem(s): Acute otitis externa of left ear (Resolved 08/02/2020) Ciprodex 0.3-0.1% 4 gtts to left ear BID x 5 days. Recommend avoiding inserting any objects into ear as well as avoiding insertion of peroxide and debrox into ear. Explained that damaging skin in earcanal can provoke bacterial and/or fungal growth. To dry ear with towel and finger following bathing. To call/return to office with any new, persistent, or worsening symptoms. documented in this encounter Plan of Treatment Upcoming Encounters Date Type Department Care Team (Late st Contact Info) Description 07/26/2025 8:15 AM EST Office Visit [facility] PRIMARY CARE [address] [phone] Quentin Mccarty DO [address] [place] [phone] documented as of this encounter Visit Diagnoses Diagnosis Acute otitis externa of left ear, unspecified type- Primary Recurrent major depressive disorder, in partial remission (HCC) documented in this encounter Discontinued Medications Medication Sig Discontinue Reason Start Date End Da te polyethylene glycol (GLYCOLAX) 17 gram packet Take 1 packet (17 g total) by mouth daily as needed (constipation). Patient Choice 10/29/2016 02/18/2017 documented as of this encounter Additional Health Concerns Assessment Noted Time PHQ-9 Depression Total Score: 2 02/19/20 17 1:00 PM EDT documented as of this encounter Care Teams Guideman Relationship Specialty Start Date End Date Quentin Mccarty DO [address] [place] [address] PCP - General Internal Medicine 07/23/16 03/15/18 documented as of this encounter
--- OUTSIDE RECORDS SUMMARY | 2024-08-06 17:18 | XMS_ITS | Encounter Summary ---
Author Organization [facility] work ([facility]) Address [address] [place] [address] Care Team Providers Care Coning Machine Operator Name Role Phone Quentin Mccarty DO Primary Care Provider Source Comments The information that you have received may contain highly confidential and/or federally protected health information. This information has been disclosed to you from records protected by [facility]. The law prohibits you from making [...] information in error, please contact the sender immediately.[facility] ([facility]) Reason for Visit * Reason Comments Follow-up check TSH, and neck pain x 5 days Encounter Details Date Type Department Care Team (Late st Contact Info) Description 11/13/2016 1:15 PM EDT Office Visit [facility] Primary Care [place] [address] [place] [address] Quentin Mccarty DO [address] [place] [address] Chronic fatigue (Primary Dx); Recurrent major depressive disorder, in partial remission (HCC); Primary insomnia; Cervical strain, initial encounter Social History Tobacco Use Types Packs/Day Years [...] Sign Reading Time Taken Comments Blood Pressure 110/70 11/13/2016 1:13 PM EDT Pulse 65 11/13/2016 1:13 PM EDT Temperature - - Respiratory Rate 16 11/13/2016 1:13 PM EDT Oxygen Saturation 98% 11/13/2016 1:13 PM EDT Inhaled Oxygen Concentration - - Weight 107 kg (236 lb) 11/13/2016 1:13 PM EDT Height 189.2 cm (6' 2.5) 11/13/2016 1:13 PM EDT Body Mass Index 29.9 11/13/2016 1:13 PM EDT documented in this encounter Ordered Prescriptions Prescription Sig Dispense Quantity Refills Last Filled Start Date End Date metaxalone (SKELAXIN) 800 MG tablet Take 1 tablet (800 mg total) by mouth 3 (three) times a day for 10 days. 30 tablet 11/13/2016 11/23/2016 venlafaxine (EFFEXOR) 75 MG tablet Take 1 tablet (75 mg total) by mouth 2 (two) times a day for 90 days. 60 tablet 2 11/13/2016 12/22/2016 documented in this encounter Progress Notes * Quentin Mccarty DO - 11/13/2016 1:15 PM EDT PROGRESS NOTE CC: Napoleon Miller is a 31 y.o. male who is here for Follow-up (check TSH, and neck pain x 5 days) Subjective The primary encounter diagnosis was Chronic fatigue. Diagnoses of Recurrent major depressive disorder, in partial remission (HCC), Primary insomnia, and Cervical strain, initial encounter were also pertinent to this visit. Patient presents for recheck from anxiety and depression which is getting better with the switch toeffexor. He also has noticed some pain in his neck with decreased ROM. No injury that he can recall. He has tried massage with good results. He also has some increased fatigue. Meds/PMFSHx: The following portions of the patient's history were reviewed and updated as appropriate: allergies, current medications, past family history, past medical history, past social history, past surgicalhistory and problem list. Imported documents from [email or web address] and [employer] are reviewed. Patient Active Problem List Diagnosis ??? Recurrent major depressive disorder, in partial remission (HCC) Current Outpatient Prescriptions Medication Sig Dispense Refill ??? ALPRAZolam (XANAX) 0.5 MG tablet Take 1 tablet (0.5 mg total) by mouth nightly as needed for anxiety for up to 20 doses. 30 tablet 0 ??? metaxalone (SKELAXIN) 800 MG tablet Take 1 tablet (800 mg total) by mouth 3 (three) times a dayfor 10 days. 30 tablet 0 ??? polyethylene glycol (GLYCOLAX) 17 gram packet Take 1 packet (17 g total) by mouth daily as needed (constipation). 30 each 0 ??? venlafaxine (EFFEXOR) 75 MG tablet Take 1 tablet (75 mg total) by mouth 2 (two) times a day for90 days. 60 tablet 2 No current facility-administered medications for [...] Hematological: Negative for adenopathy. Psychiatric/Behavioral: Negative. Vitals: 11/13/16 1313 BP: 110/70 BP Location: Left arm Patient Position: Sitting Cuff Size: Adult Pulse: 65 Resp: 16 SpO2: 98% Weight: (!) 236 lb (107 kg) Height: 6' 2.5 (1.892 m) Physical Exam Physical Exam Constitutional: He is oriented to person, place, and time. He appears well- developed and well-nourished. HENT: Head: Normocephalic and atraumatic. Right Ear: External ear normal. Left Ear: External ear normal. Neck: Normal range of motion. Neck supple. Cardiovascular: Normal rate, regular rhythm and normal heart sounds. Pulmonary/Chest: Effort normal and breath sounds normal. Abdominal: Soft. Bowel sounds are normal. He exhibits no distension. There is no tenderness. Musculoskeletal: Normal range of motion. Neurological: He is alert and oriented to person, place, and time. Skin: Skin is warm and dry. No rash noted. Psychiatric: He has a normal mood and affect. His behavior is normal. Judgment and thought content normal. Vitals reviewed. Assessment and Plan Diagnoses and all orders for this visit: Chronic fatigue Comments: will check TSH level Orders: - TSH Recurrent major depressive disorder, in partial remission (HCC) Comments: Doing well on Effexor, will increase dose to 75 mg BID, continue prn xanax no more than one per day. Primary insomnia Comments: Will try Belsomra Cervical strain, initial encounter Comments: Will try Skelaxin prn continue stretching exercises. Other orders - venlafaxine (EFFEXOR) 75 MG tablet; Take 1 tablet (75 mg total) by mouth 2 (two) times a day for 90 days. - metaxalone (SKELAXIN) 800 MG tablet; Take 1 tablet (800 mg total) by mouth 3 (three) times a day for 10 days. Quentin Mccarty DO 11/13/2016 documented in this encounter Plan of Treatment Upcoming Encounters Date Type Department Care Team (Late st Contact Info) Description 07/26/2025 8:15 AM EST Office Visit [facility] [address] [place] [address] Quentin Mccarty DO [address] [place], [place] [id number] documented as of this encounter Procedures Procedure Name Priority Date/Time Associated Diagnosis Comments TSH Routine 11/13/2016 1:35 PM EDT Chronic fatigue documented in this encounter Results * TSH (11/13/2016 1:35 PM EDT) TSH 1.860 0.400 - 4.000 mcU/mL 11/13/2016 6:59 PM EDT [facility] Blood specimen (specimen) Blood specimen / Unknown 11/13/2016 1:35 PM EDT 11/13/2016 6:15 PM EDT Quentin Mccarty DO LAB BLOOD ORDERABLES Final Resul t [facility] [address] [place] [address] documented in this encounter Visit Diagnoses Diagnosis Chronic fatigue- Primary Other malaise and fatigue Recurrent major depressive disorder, in partial remission (HCC) Primary insomnia Persistent disorder of initiating or maintaining sleep Cervical strain, initial encounter documented in this encounter Discontinued Medications Medication Sig Discontinue Reason Start Date End Da te venlafaxine (EFFEXOR) 50 MG tablet Take 1 tablet (50 mg total) by mouth 2 (two) times a day for 90 days. 10/22/2016 11/13/2016 documented as of this encounter Care Teams Coning Machine Operator Relationship Specialty Start Date End Date Quentin Mccarty DO [address] [place] [id number] PCP - General Internal Medicine 07/23/16 03/15/18 documented as of this encounter
--- OUTSIDE RECORDS SUMMARY | 2024-08-06 17:18 | XMS_ITS | Encounter Summary ---
Author Organization [facility] work ([facility]) Address [address] [place] [address] Care Team Providers Care Steam Gigger Name Role Phone Unavailable Primary Care Provider Unavailabl e Source Comments The information that you have received may contain highly confidential and/or federally protected health information. This information has been disclosed to you from records protected by [facility]. The law prohibits you from [...] contact the sender immediately.[facility] ([facility]) Encounter Details Date Type Department Care Team (Late st Contact Info) Description 03/02/2013 Historical Note [facility] HISTORICAL [address] [place] [address] Provider, MD Jose Social History Tobacco Use [...] Progress Notes * Historical Provider, - 09/20/2014 6:37 PM EDT PATIENT: GILBERT TORRES [facility] REC #: [id number] DATE OF ADMISSION: 03/02/2013DATE OF DISCHARGE: DATE OF : 1985UNIT#/ROOM #: ASC OPERATION REPORTPATIENT TYPE: K CC:SURGEON: Carolina Quinn MD (Abraham) GROCERY DEPARTMENT MANAGER: Karon Pozo MD [facility] OPERATION REPORT DATE: 03/02/2013 SURGEON: Carolina Quinn MD (Abraham) GROCERY DEPARTMENT MANAGER: Karon Pozo MD ANESTHESIA: General with LMA and 20 mL of 0.5% Sensorcaine with epinephrine for local. PREOPERATIVE DIAGNOSIS(ES): Persistent perirectal abscess. 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 OPERATION: PROCEDURE: Exam under anesthesia and seton placement. ESTIMATED BLOOD LOSS: 5 mL. IV FLUIDS: 900 mL. SPECIMENS: None. DRAINS: One red vessel loop seton. COMPLICATIONS: None. DISPOSITION: Stable to PACU. INDICATIONS: This is a 27-year-old male, who a month ago, developed a perirectal abscess which was I and D'd in the ER, however he has continued to have pain and drainage at that site over the last month despite apparently appropriate treatment. For this reason, I suspected a fistula in ano and recommended that he go to the OR for an exam under anesthesia. Risks and benefits of surgery were discussed with the patient. He agreed to proceed. OPERATIVE PROCEDURE: Once informed consent had been obtained, the patient was brought to the operating room and placed on the operating table in a supine position. After the induction of general endotracheal anesthesia he was placed in the lithotomy position using candy-cane stirrups. We then prepped and draped the perineal region in the usual sterile manner. There was an opening laterally to theleft side of the anus. We started by using 20 mL of 0.5% Sensorcaine with epi to place a perianal block. We then performed a digital rectal exam, which did not really show any abnormalities are noted. Speculum exam using Hill- Leung was also done which also really did not show abnormalities. We then injected hydrogen peroxide into the wound which again nothing was seen coming out in the anus however after probing with a fistula probe and further examining the area, we found that there was an opening in the perianal skin and directly in the midline anteriorly and that this took a circuitous route and connected with the wound a little bit towards the thigh. We were able to place a red rubber vessel loop through this space and secured in place using ties of 2-0 silk thus placing a seton. We also curetted out a bit the wound laterally removing some excessive granulation tissue there. Thisconcluded our procedure. We also packed with 0.5 inch Nu-Gauze into the wound out laterally which we had enlarged somewhat. We then additionally dressed the wound with 4x4s and an ABD pad, and placedmesh panties on. We took the patient out of lithotomy position, and he was awakened and taken to the recovery room in stable condition. I was present for and supervised all avitia portions of the procedure. All sponge and needle counts were correct at the end of the procedure. The patient tolerated the procedure well, was awakened, taken to the recovery room in stable condition. Physician: Carolina Quinn MD (Abraham) Dictated By: Carolina Quinn MD (Abraham) P(H/MedQ [id number] Electronic Signatures: Carolina Quinn) (Signed on 03/07/2013 11:07) Authored Interfaced from[employer]rian (Other) (Entered on 03/02/2013 11:47) Entered Last Updated: 03/07/2013 11:07 by Carolina Quinn) documented in this encounter Plan of Treatment Upcoming Encounters Date Type Department Care Team (Late st Contact Info) Description 07/26/2025 8:15 AM EST Office Visit [facility] PRIMARY CARE [address] [place] [address] Quentin Mccarty DO [address] [place], [place] [address] [address] documented as of this encounter Visit Diagnoses Not on filedocumented in this encounter
--- OUTSIDE RECORDS SUMMARY | 2024-08-06 17:18 | XMS_ITS | Encounter Summary ---
Author Organization [facility] work ([facility]) Address [address] [facility] [facility] [address] [place] [address] Care Team Providers Care Engine Lathe Tender Name Role Phone Quentin Mccarty DO Primary Care Provider [phone] Source Comments The information that you have received may contain highly confidential and/or federally protected health information. This information has been disclosed to you from records protected by [facility]. The law prohibits you from making any [...] information in error, please contact the sender immediately.[facility] ([facility]) Reason for Visit * Reason Comments New Patient Annual Exam Depression Anxiety Encounter Details Date Type Department Care Team (Late st Contact Info) Description 08/02/2020 11:15 AM EST Office Visit [facility] Primary Care [place] [address] [place] [address] Quentin Mccarty DO [address] [place] [address] Health care maintenance (Primary Dx); Recurrent major depressive disorder, in partial remission (HCC); Encounter for lipid screening for cardiovascular disease; Elevated random blood glucose level Social History Tobacco Use Types Packs/Day Years Used Date Smoking Tobacco: Former Cigarettes Q uit: 07/23/2001 Smokeless Tobacco: Former Chew Quit: 07/23/2014 Alcohol Use Standard Drinks/Week Comments Yes 13 (1 standard drink = 0.6 oz pu re alcohol) 3-4 days per week/ 2-4 drinks PHQ-2 Answer Date Recorded PHQ-2 Score 20 08/02/2020 Alcohol and Drug Use Answer Date Record [...] or suspected to have Coronavirus / COVID-19? No / Unsure 08/02/2020 10:57 AM EST documented as of this encounter Last Filed Vital Signs Vital Sign Reading Time Taken Comments Blood Pressure 132/88 08/02/2020 11:06 AM EST Pulse 80 08/02/2020 11:06 AM EST Temperature 36.8 ??C (98.2 ??F) 08/02/2020 11:[address] Respiratory Rate 18 08/02/2020 11:06 AM EST Oxygen Saturation 98% 08/02/2020 11:06 AM EST Inhaled Oxygen Concentration - - Weight 110 kg (242 lb 8 oz) 08/02/2020 11:06 AM EST Height 188 cm (6' 2.02) 08/02/2020 11:06 AM EST Body Mass Index 31.12 08/02/2020 11:06 AM EST documented in this encounter Ordered Prescriptions Prescription Sig Dispense Quantity Refills Last Filled Start Date End Date sildenafiL (VIAGRA) 100 MG tablet Take 1 tablet (100 mg total) by mouth daily as needed for erectile dysfunction for up to 30 days. 10 tablet 08/02/2020 1 ALPRAZolam (XANAX) 1 MG tablet Take 1 tablet (1 mg total) by mouth nightly as needed for anxiety for up to 15 days. Max Daily Amount: 1 mg 15 tablet 08/02/2020 1 buPROPion (WELLBUTRIN) 75 MG tablet Take 1 tablet (75 mg total) by mouth 2 (two) times a day. 60 tablet 11 08/02/2020 1 documented in this encounter Progress Notes * Quentin Mccarty DO - 08/02/2020 11:15 AM EST PROGRESS NOTE CC: Napoleon Miller is a 34 y.o. male who is here for New Patient, Annual Exam, Depression, and Anxiety Subjective The primary encounter diagnosis was Health care maintenance. Diagnoses of Recurrent major depressive disorder, in partial remission (HCC), Encounter for lipid screening for cardiovascular disease, and Elevated random blood glucose level were also pertinent to this visit. Patient presents for yearly exam. He has not been in the office for several years. He started a newdiet last year and lost over 30 pounds. He tries to stay active while working from home. He does not smoke drink heavily or use drugs. He does admit his anxiety is getting worse. He stopped his Effexor secondary to sexual side effects. He admits his is anxious and depressed and has been having trouble functioning at home secondary to his symptoms. Meds/PMFSHx: The following portions of the patient's history were reviewed and updated as appropriate: allergies, current medications, past family history, past medical history, past social history, past surgicalhistory and problem list. Imported documents from [employer] and [employer] organizations are reviewed. Patient Active Problem List Diagnosis ??? Recurrent major depressive disorder, in partial remission (HCC) Current Outpatient Medications Medication Sig Dispense Refill ??? ALPRAZolam (XANAX) 1 MG tablet Take 1 tablet (1 mg total) by mouth nightly as needed for anxiety for up to 15 days. Max Daily Amount: 1 mg 15 tablet 0 ??? buPROPion (WELLBUTRIN) 75 MG tablet Take 1 tablet (75 mg total) by mouth 2 (two) times a day. 60 tablet 11 ??? sildenafiL (VIAGRA) 100 MG tablet Take 1 tablet (100 mg total) by mouth daily as needed for erectile dysfunction for up to 30 days. 10 tablet 0 No current facility-administered medications [...] file Occupational History ??? Not on file Social Needs ??? Financial resource strain: Not on file ??? Food insecurity Worry: Not on file Inability: Not on file ??? Transportation needs Medical: Not on file Non-medical: Not on file Tobacco Use ??? Smoking status: Former Smoker Packs/day: 0.00 Years: 10.00 Pack years: 0.00 Types: Cigarettes Quit date: 07/23/2011 Years since quittin.0 ??? Smokeless tobacco: Former User Types: Chew Quit date: 07/23/2014 Substance and Sexual Activity ??? Alcohol use: Yes Alcohol/week: 13.0 standard drinks Types: 3 Cans of beer, 10 Standard drinks or equivalent per week Comment: 3-4 days per week/ 2-4 drinks ??? Drug use: No ??? Sexual activity: Yes Partners: Female control/protection: None Lifestyle ??? Physical activity Days per week: Not on file Minutes per session: Not on file ??? Stress: Not on file Relationships ??? Social connections Talks on phone: Not on file Gets together: Not on file Attends shinto service: Not on file Active member of club or organization: Not on file Attends meetings of clubs or organizations: Not on file Relationship status: Not on file ??? Intimate partner violence Fear of current or ex partner: Not on file Emotionally abused: Not on file Physically abused: Not on file Forced sexual activity: Not on file Other Topics Concern ??? Not on file Social History Narrative ??? Not on file Past Medical History: Diagnosis Date ??? Allergic [...] and headaches. Hematological: Negative for adenopathy. Psychiatric/Behavioral: Positive for decreased concentration, dysphoric mood and sleep disturbance.The patient is nervous/anxious. Vitals: 08/02/20 1106 BP: 132/88 Pulse: 80 Resp: 18 Temp: 98.2 ??F (36.8 ??C) TempSrc: Temporal SpO2: 98% Weight: (!) 242 lb 8 oz (110 kg) Height: 6' 2.02 (1.88 m) Physical Exam Physical Exam Vitals signs reviewed. Constitutional: Appearance: He is well-developed. HENT: Head: Normocephalic and atraumatic. Right Ear: External ear normal. Left Ear: External ear normal. Neck: Musculoskeletal: Normal range of motion and neck supple. Cardiovascular: Rate and Rhythm: Normal rate and regular rhythm. Heart sounds: Normal heart sounds. Pulmonary: Effort: Pulmonary effort is normal. Breath sounds: Normal breath sounds. Abdominal: General: Bowel sounds are normal. There is no distension. Palpations: Abdomen is soft. Tenderness: There is no abdominal tenderness. Musculoskeletal: Normal range of motion. Skin: General: Skin is warm and dry. Findings: No rash. Neurological: Mental Status: He is alert and oriented to person, place, and time. Psychiatric: Behavior: Behavior normal. Thought Content: Thought content normal. Judgment: Judgment normal. Comments: Tearful at times during exam Physical exam depicts current exam findings after a complete exam was performed today Assessment and Plan Diagnoses and all orders for this visit: Health care maintenance Comments: discussed diet, exercise and screening will get routine blood work Recurrent major depressive disorder, in partial remission (HCC) Comments: will start Wellbutrin, prn Xanax and refer to [facility] for additional counseling Encounter for lipid screening for cardiovascular disease - Lipid panel Elevated random blood glucose level Comments: will check A1c Orders: - Hemoglobin A1C Other orders - buPROPion (WELLBUTRIN) 75 MG tablet; Take 1 tablet (75 mg total) by mouth 2 (two) times a day. - ALPRAZolam (XANAX) 1 MG tablet; Take 1 tablet (1 mg total) by mouth nightly as needed for anxietyfor up to 15 days. Max Daily Amount: 1 mg - sildenafiL (VIAGRA) 100 MG tablet; Take 1 tablet (100 mg total) by mouth daily as needed for erectile dysfunction for up to 30 days. Quentin Mccarty DO 08/02/2020 documented in this encounter Miscellaneous Notes * Result Encounter Note - Quentin Mccarty DO - 08/02/2020 11:15 AM EST Leila, Your lab results are normal. If you have any questions please feel free to call the office: [phone] documented in this encounter Plan of Treatment Upcoming Encounters Date Type Department Care Team (Late st Contact Info) Description 07/26/2025 8:15 AM EST Office Visit [facility]IMARY [facility] [place] [phone] Quentin Mccarty DO [address] [place] [address] documented as of this encounter Procedures Procedure Name Priority Date/Time Associated Diagnosis Comments HEMOGLOBIN A1C Routine 08/02/2020 11:48 AM EST Elevated random blood glucose level LIPID PANEL W/REFLEX TO DIRECT LDL Routine 08/02/2020 11:48 AM EST Encounter for lipid screening for cardiovascular disease documented in this encounter Results * Hemoglobin A1C (08/02/2020 11:48 AM EST) Hemoglobin A1C 5.3 <5.7 % 08/02/2020 6:44 PM [facility] Blood Blood specimen / Unknown 08/02/2020 11:48 AM EST 08/02/2020 5:53 PM EST [facility] - 08/02/2020 6:44 PM EST Normal ? <5.7 % Pre-Diabetes ? 5.7 - 6.4 % Indicative of Diabetes Mellitus ??6.5 % or greater us Quentin Mccarty DO LAB BLOOD ORDERABLES Final Resul t [facility] [address] [place] [id number] * Lipid panel (08/02/2020 11:48 AM EST) Cholesterol 190 <200 mg/dL 08/02/2020 6:13 PM EST [facility] Triglycerides 140 <150 mg/dL 08/02/2020 6:13 PM EST [facility] HDL 59 >39 mg/dL 08/02/2020 6:13 PM EST [facility] LDL Calculated 103 <130 mg/dL 08/02/2020 6:13 PM [facility] Blood Blood specimen / Unknown 08/02/2020 11:48 AM EST 08/02/2020 5:53 PM EST Narrative [facility] - 08/02/2020 6:13 PM EST RISK CATEGORY 1: Patients having [...] DO LAB BLOOD ORDERABLES Final Resul t [facility] [address] [place] [address] documented in this encounter Visit Diagnoses Diagnosis Health care maintenance- Primary Recurrent major depressive disorder, in partial remission (HCC) Encounter for lipid screening for cardiovascular disease Elevated random blood glucose level documented in this encounter Discontinued Medications Medication Sig Discontinue Reason Start Date End Da te ALPRAZolam (XANAX) 0.5 MG tabletIndications:Anxie ty Take 1 tablet (0.5 mg total) by mouth nightly as needed for anxiety for up to 30 doses. 09/25/2017 08/02/2020 azithromycin (AZASITE) 1 % ophthalmic solutionIndications:Acu te bacterial conjunctivitis of left eye Apply 1 drop to both eyes twice daily for 2 days and then daily for 5 days. 07/18/2017 08/02/2020 cephalexin (KEFLEX) 500 MG capsule 07/25/2017 08/02/2020 ibuprofen (MOTRIN) 600 MG tablet TAKE ONE TABLET BY MOUTH THREE TIMES A DAY AFTER MEALS. BEGIN AFTER STEROIDS ARE DISCONTINUED 06/05/2017 08/02/2020 venlafaxine (EFFEXOR) 75 MG tablet Take one tablet PO BID 03/04/2018 08/02/2020 documented as of this encounter Additional Health Concerns Assessment Noted Time PHQ-9 Depression Total Score: 20 021 11:08 AM EST PHQ-2 Depression Total Score: 6 08/02/19 21 11:08 AM EST documented as of this encounter Care Teams Engine Lathe Tender Relationship Specialty Start Date End Date Quentin Mccarty DO [facility] [place] [address] PCP - General Internal Medicine 08/02/20 documented as of this encounter
--- OUTSIDE RECORDS SUMMARY | 2024-08-06 17:18 | XMS_ITS | Encounter Summary ---
Author Organization [facility] [employer] [facility] work ([facility]) Address [address] [facility] [address] [place] [address] Care Team Providers Care Location And Measurement Technician Name Role Phone Quentin Mccarty DO Primary Care Provider [phone] Emiliana Velazquez Unavailable Unavailable Source Comments The information that you have received may contain highly confidential and/or federally protected health information. This information has been disclosed to you from records protected by [facility]. The law prohibits you from making any [...] information in error, please contact the sender immediately.[facility] ([facility]) Encounter Details Date Type Department Care Team (Latest Contact Info) Description 09/13/2020 1:50 PM EDT Immunization [facility] COVID Immunization Clinic - [address] [address] Encounter for immunization (Primary Dx) Social History Tobacco Use Types Packs/Day Years Used Date Smoking Tobacco: Former Cigarettes Q uit: 07/23/2001 Smokeless Tobacco: Former Chew Quit: 07/23/2014 Alcohol Use Standard Drinks/Week Comments Yes 13 (1 standard drink = 0.6 oz pu re alcohol) 3-4 days per week/ 2-4 drinks PHQ-2 Answer Date Recorded PHQ-2 Score 4 09/10/2020 Alcohol and Drug Use Answer Date Record [...] have Coronavirus / COVID-19? No / Unsure 09/10/2020 11:29 AM EDT documented as of this encounter Plan of Treatment Upcoming Encounters Date Type Department Care Team (Late st Contact Info) Description 07/26/2025 8:15 AM EST Office Visit [facility] [address] [address] Quentin Mccarty DO [address] [place] [address] documented as of this encounter Visit Diagnoses Diagnosis Encounter for immunization- Primary documented in this encounter Orders Immunization/Injection Count Last Ordered Date First Ordered Date PFIZER SARS-COV-2 VACCINE 2ND DOSE APPT 1 0 10/06/2020 documented in this encounter Additional Health Concerns Assessment Noted Time PHQ-9 Depression Total Score: 4 09/11/19 21 11:34 AM EDT PHQ-2 Depression Total Score: 1 09/11/19 21 11:34 AM EDT documented as of this encounter Care Teams Location And Measurement Technician Relationship Specialty Start Date End Date Quentin Mccarty DO [address] [place] [address] PCP - General Internal Medicine 08/02/20 Emiliana Velazquez Behavioral Health Geriatric Nursing Assistant Psychology 08/03/20 01/03/21 documented as of this encounter
--- OUTSIDE RECORDS SUMMARY | 2024-08-06 17:18 | XMS_ITS | Encounter Summary ---
Author Organization [facility] work ([facility]) Address [address] [facility] [address] [place] [address] Care Team Providers Care Bench Lay Out Technician Name Role Phone Quentin Mccarty DO Primary Care Provider [phone] Emiliana Velazquez Unavailable Unavailable Source Comments The information that you have received may contain highly confidential and/or federally protected health information. This information has been disclosed to you from records protected by [facility]. The law prohibits you from making any [...] information in error, please contact the sender immediately.[facility] ([facility]) Encounter Details Date Type Department Care Team (Late st Contact Info) Description 08/15/2020 Orders Only [facility] [place] [address] [place] [address] Quentin Mccarty DO [address] [place], [place] [phone] Social History Tobacco Use Types Packs/Day Years [...] AM EST documented as of this encounter Ordered Prescriptions Prescription Sig Dispense Quantity Refills Last Filled Start Date End Date buPROPion (WELLBUTRIN) 75 MG tablet Take 1 tablet (75 mg total) by mouth 2 (two) times a day. 60 tablet 11 08/15/2020 08/21/2020 documented in this encounter Plan of Treatment Upcoming Encounters Date Type Department Care Team (Late st Contact Info) Description 07/26/2025 8:15 AM EST Office Visit [facility] [address] [phone] Quentin Mccarty DO [address] [place] [phone] documented as of this encounter Visit Diagnoses Not on filedocumented in this encounter Discontinued Medications Medication Sig Discontinue Reason Start Date End Da te buPROPion (WELLBUTRIN) 75 MG tablet Take 1 tablet (75 mg total) by mouth 2 (two) times a day. Reorder 08/02/2020 08/15/2020 documented as of this encounter Additional Health Concerns Assessment Noted Time PHQ-9 Depression Total Score: 20 021 11:08 AM EST PHQ-2 Depression Total Score: 6 08/02/19 21 11:08 AM EST documented as of this encounter Care Teams Bench Lay Out Technician Relationship Specialty Start Date End Date Quentin Mccarty DO [address] [place] [address] PCP - General Internal Medicine 08/02/20 Emiliana Velazquez Behavioral Health Dean Psychology 08/03/20 01/03/21 documented as of this encounter
--- OUTSIDE RECORDS SUMMARY | 2024-08-06 17:18 | XMS_ITS | Encounter Summary ---
Author Organization [facility] [employer] [facility] work ([facility]) Address [address] [address] Care Team Providers Care Stock Parts Inspector Name Role Phone Quentin Mccarty DO Primary Care Provider Emiliana Velazquez Unavailable Unavailable Source Comments The information that you have received may contain highly confidential and/or federally protected health information. This information has been disclosed to you from records protected by [facility]. The law prohibits you from making [...] information in error, please contact the sender immediately.[facility] [employer] [facility] ([facility]) Reason for Visit * Reason Comments Supportive Care Encounter Details Date Type Department Care Team (Latest Contact Info) Description 09/05/2020 8:30 AM EDT Clinical Support [facility] Primary Care [place] [address] [place], [place] [phone] Emiliana Velazquez Recurrent major depressive disorder, in partial remission (HCC) (Primary Dx) Social History Tobacco Use Types Packs/Day Years Used Date Smoking Tobacco: Former Cigarettes Q uit: 07/23/2001 Smokeless Tobacco: Former Chew Quit: 07/23/2014 Alcohol Use Standard Drinks/Week Comments Yes 13 (1 standard drink = 0.6 oz pu re alcohol) 3-4 days per week/ 2-4 drinks PHQ-2 Answer Date Recorded PHQ-2 Score 11 09/05/2020 Alcohol and Drug Use Answer Date Record [...] have Coronavirus / COVID-19? Unable to assess 09/05/2020 9:01 AM EDT documented as of this encounter Mental Status * Problems Bothering Patient in the Last 2 Weeks Question Answer Entry Date Author KRISTIN-7 Total Score 11 09/05/2020 8:00 AM EDT Emiliana Velazquez documented in this encounter Progress Notes * Emiliana Velazquez - 09/05/2020 8:30 AM EDT Behavioral Health Microsoft Systems Engineer Progress Note Name: Napoleon Miller : 1985 Date: 09/05/2020 Plan Encounter Diagnosis: 1. Recurrent major depressive disorder, in partial remission (HCC) Plan 09/05/2020 Intervention Type initial assessment and/or use of validated rating scales with patient (collaborative care);provision of brief interventions using evidence based techniques (collaborative care);continuity of care with a designated member of the care team (collaborative care);assisting patient withbarriers to care Treatment Goals improve coping skills;improve overall mood;improve relaxation skills;improve self-care routine;reduce anxiety symptoms Patient goal in their own words: Would like to feel more confident and relaxed. ??Don't want to feel as overwhelmed and have more control of my mind and feelings. ??Want a plan or things to work on. Patient motivation in their own words: I'll try what we discussed. Follow up 09/05/2020 Does the patient need follow up Yes [...] their chronic condition? N/A Return in about 2 weeks (around 09/19/2020). Referral Referral 09/05/2020 Type of visit Follow up Type of contact Video Visit Start time with patient 8:24 AM End time with patient 9:02 AM Total time spent with patient (in minutes) 38 Reason for referral pt Mental Health Condition Assessment Clinical Impression: [facility] and pt had follow up by video. Reviewed PHQ-9 and KRISTIN-7, both in moderate range. Pt reports that he thinks Wellbutrin is starting to improve sx, feels more motivated to initiate activities. Denies experiencing any side effects like he has with previous medication. Pt reports he is still taking xanax most mornings as it is common for him to wake up feeling anxious/panicked. Pt reports he has been paying attention to his triggers. Reports that work stress, watching the news and worrying aboutnot being a good enough parent for his kids are common triggers. Has been limiting news exposure. Discussed specific situations that occurred at work and with his son that have contributed to some anxiety. Explored how he could address the situations and also identified some of the cognitive distortions in these situations. [facility] will send document of common cognitive distortions through [employer] that pt will reference before next session. Discussed how creating 'self concept map' illustrating roles and subroles can provide helpful perspective, pt plans to complete before next session. Will update care team. Rescheduled session for 2 weeks. Screening Results 09/05/2020 PHQ-9 Total Score 11 KRISTIN-7 Total Score 11 Mental Status Exam: Physical Exam Psychiatric: Attention and Perception: Attention and perception normal. Mood and Affect: Mood and affect normal. Speech: Speech normal. Behavior: Behavior normal. Behavior is cooperative. Thought Content: Thought content normal. Cognition and Memory: Cognition and memory normal. Judgment: Judgment normal. Barriers and Strengths 09/05/2020 Barriers patient reports no obstacles or barriers to care Strengths financially stable;interesting in learning how to make changes;motivated for change;positive social support system;stable relationships Safety Harm to self: no suicidal ideation, intent or plan. Harm to others: no homicidal ideation, intent or plan. Emiliana Velazquez Behavioral Health Microsoft Systems Engineer documented in this encounter Plan of Treatment Upcoming Encounters Date Type Department Care Team (Late st Contact Info) Description 07/26/2025 8:15 AM EST Office Visit [facility] [address] [phone] Quentin Mccarty DO [address] [place] [phone] documented as of this encounter Visit Diagnoses Diagnosis Recurrent major depressive disorder, in partial remission (HCC)- Primary documented in this encounter Additional Health Concerns Assessment Noted Time PHQ-9 Depression Total Score: 11 021 8:00 AM EDT PHQ-2 Depression Total Score: 3 09/06/19 21 8:00 AM EDT documented as of this encounter Care Teams Stock Parts Inspector Relationship Specialty Start Date End Date Quentin Mccarty DO [address] [place] [address] PCP - General Internal Medicine 08/02/20 Emiliana Velazquez Behavioral Health Microsoft Systems Engineer Psychology 08/03/20 01/03/21 documented as of this encounter
--- OUTSIDE RECORDS SUMMARY | 2024-08-06 17:18 | XMS_ITS | Encounter Summary ---
Author Organization [facility] work ([facility]) Address [address] [facility] [address] [place] [address] Care Team Providers Care Sheet Metal Production Worker Name Role Phone Quentin Mccarty DO Primary Care Provider [phone] Source Comments The information that you have received may contain highly confidential and/or federally protected health information. This information has been disclosed to you from records protected by [facility]. The law prohibits you from making [...] please contact the sender immediately.[facility] ([facility]) Reason for Visit * Reason Comments Establish Care New patient physical / Depression, Anxiety Encounter Details Date Type Department Care Team (Late st Contact Info) Description 07/23/2016 10:45 AM EST Office Visit [facility] Primary Care [place] [address] [place], [place] [phone] Quentin Mccarty DO [address] [place] [address] Anxiety (Primary Dx); Health care maintenance Social History Tobacco Use Types Packs/Day Years [...] Sign Reading Time Taken Comments Blood Pressure 128/72 07/23/2016 10:33 AM EST Pulse 66 07/23/2016 10:33 AM EST Temperature 36.8 ??C (98.2 ??F) 07/23/2016 10:[address] Respiratory Rate 16 07/23/2016 10:33 AM EST Oxygen Saturation 98% 07/23/2016 10:33 AM EST Inhaled Oxygen Concentration - - Weight 105.7 kg (233 lb) 07/23/2016 10:33 AM EST Height 189.2 cm (6' 2.5) 07/23/2016 10:33 AM ES T Body Mass Index 29.52 07/23/2016 10:33 AM EST documented in this encounter Ordered Prescriptions Prescription Sig Dispense Quantity Refills Last Filled Start Date End Date escitalopram oxalate (LEXAPRO) 5 MG tablet Take 1 tablet (5 mg total) by mouth daily for 30 days. 30 tablet 1 07/23/2016 7 ALPRAZolam (XANAX) 0.5 MG tablet Take 1 tablet (0.5 mg total) by mouth 3 (three) times a day as needed for anxiety for up to 10 days. 10 tablet 07/23/2016 7 documented in this encounter Progress Notes * Quentin Mccarty DO - 07/23/2016 10:45 AM EST PROGRESS NOTE CC: Napoleon Miller is a 30 y.o. male who is here for Establish Care (New patient physical / Depression, Anxiety ) Subjective The primary encounter diagnosis was Anxiety. A diagnosis of Health care maintenance was also pertinent to this visit. Patient presents with complaints of anxiety. This has been ongoing for over 15 years. He feels on edge most days and has been having panic attacks as well with chest pain, SOB and uncontrollable crying. He is tearful during his exam today and states that he feels that he can not trust anyone, including his and family. He admits that this is irrational but he can not help his feelings. He hasnoted that he is fearful for his life during these episodes and feels like he is dying, but can notstop them. They resolve on their own. He has seen counselors in the past but has not been able to make a good connection to them and has not seen anyone continuously. Meds/PMFSHx: The following portions of the patient's history were reviewed and updated as appropriate: allergies, current medications, past family history, past medical history, past social history, past surgicalhistory and problem list. Imported documents from [employer] and [employer] are reviewed. There is no problem list on file for this patient. Current Outpatient Prescriptions Medication Sig Dispense Refill ??? ALPRAZolam (XANAX) 0.5 MG tablet Take 1 tablet (0.5 mg total) by mouth 3 (three) times a day asneeded for anxiety for up to 10 days. 10 tablet 0 ??? escitalopram oxalate (LEXAPRO) 5 MG tablet Take 1 tablet (5 mg total) by mouth daily for 30 days. 30 tablet 1 No current facility-administered medications for this visit. [...] ??? Pancreatic cancer Paternal Grandfather Social History Social History ??? Marital status: Spouse name: N/A ??? Number of children: N/A ??? Years of education: N/A Occupational History ??? Not on file. Social History Main Topics ??? Smoking status: Former Smoker Years: 10.00 Types: Cigarettes Quit date: 07/23/2011 ??? Smokeless tobacco: Former User Types: Chew Quit date: 07/23/2014 ??? Alcohol use Yes Comment: 3-4 days per week/ 2-4 drinks ??? Drug use: No ??? Sexual activity: Yes Partners: Female control/ protection: None Other Topics Concern ??? Not on file Social History Narrative ??? No narrative on file No past medical history on file. ROS Review of Systems Constitutional: Negative for [...] Hematological: Negative for adenopathy. Psychiatric/Behavioral: Positive for agitation and sleep disturbance. Negative for suicidal ideas. The patient is nervous/anxious. Vitals: 07/23/16 1033 BP: 128/72 BP Location: Left arm Patient Position: Sitting Cuff Size: Large Adult Pulse: 66 Resp: 16 Temp: 98.2 ??F (36.8 ??C) TempSrc: Oral SpO2: 98% Weight: (!) 233 lb (105.7 kg) Height: 6' 2.5 (1.892 m) Physical [...] orders for this visit: Anxiety Comments: Will start Lexapro at this time with Xanax for panic attacks Will refer to [facility] for counseling. Health care maintenance Comments: discussed diet, exercise and screening. Will get routine blood work at next visit to avoid overwhelming him Other orders - ALPRAZolam (XANAX) 0.5 MG tablet; Take 1 tablet (0.5 mg total) by mouth 3 (three) times a day as needed for anxiety for up to 10 days. - escitalopram oxalate (LEXAPRO) 5 MG tablet; Take 1 tablet (5 mg total) by mouth daily for 30 days. Quentin Mccarty DO 07/23/2016 documented in this encounter Plan of Treatment Upcoming Encounters Date Type Department Care Team (Late st Contact Info) Description 07/26/2025 8:15 AM EST Office Visit [facility] [address] [phone] Quentin Mccarty DO [address] [place] [address] documented as of this encounter Visit Diagnoses Diagnosis Anxiety- Primary Anxiety state, unspecified Health care maintenance documented in this encounter Care Teams Sheet Metal Production Worker Relationship Specialty Start Date End Date Quentin Mccarty DO [address] [place] [address] PCP - General Internal Medicine 07/23/16 03/15/18 documented as of this encounter
--- OUTSIDE RECORDS SUMMARY | 2024-08-06 17:18 | XMS_ITS | Encounter Summary ---
Author [facility] ([facility]) Address [address] [address] Care Team Providers Care Delphi Developer Name Role Phone Quentin Mccarty DO Primary Care Provider [phone] Source Comments The information that you have received may contain highly confidential and/or federally protected health information. This information has been disclosed to you from records protected by [facility]. The law prohibits you [...] the sender immediately.[facility] [employer] ([facility]) Encounter Details Date Type Department Care Team (Late st Contact Info) Description 07/18/2017 E-Visit [facility] [employer] [facility] [address] [place], [place] [phone] Aleksandra Peña DO [address] [place], [place] [phone] RE: E-Visit Submission: Eye Irritation Social History Tobacco Use Types Packs/Day Years [...] Refills Last Filled Start Date End Date azithromycin (AZASITE) 1 % ophthalmic solutionIndications: Acute bacterial conjunctivitis of left eye Apply 1 drop to both eyes twice daily for 2 days and then daily for 5 days. 2.5 mL 07/18/2017 documented in this encounter Progress Notes * Aleksandra Peña DO - 07/18/2017 9:24 PM EST I reviewed the information submitted by the patient, including their problem list, current medications, and allergies. Any corrections to this information that the patient submitted were made by me in the chart. I personally reviewed the information in the patient???s [facility] chart for accuracy and any additional information that would be helpful to me in making this diagnosis. This patient???s underlying diseases were taken into consideration in my management. There are multiple options that should be considered in making this diagnosis. Considering the history I think this patient has: Acute bacterial conjunctivitis of left eye - azithromycin (AZASITE) 1 % ophthalmic solution; Apply 1 drop to both eyes twice daily for 2 days and then daily for 5 days. Dispense: 2.5 mL; Refill: 0 I prescribed appropriate treatment for this patient???s disorder. I took into consideration the patient???s current med list. The patient was informed that if symptoms worsen or are not improving in 2 days or he develops fever, eye pain, vision changes or eye lid swelling to follow up immediately with his eye doctor or emergency room. Aleksandra Peña DO documented in this encounter Plan of Treatment Upcoming Encounters Date Type Department Care Team (Late st Contact Info) Description 07/26/2025 8:15 AM EST Office Visit [facility] [address] [place] [address] Quentin Mccarty DO [address] [place], [place] [phone] documented as of this encounter Visit Diagnoses Diagnosis Acute bacterial conjunctivitis of left eye- Primary documented in this encounter Historical Medications * This list may reflect changes made after this encounter. ibuprofen (MOTRIN) 600 MG tablet TAKE ONE TABLET BY MOUTH THREE TIMES A DAY AFTER MEALS. BEGIN AFTER STEROIDS ARE DISCONTINUED 2 06/05/2017 1 added in this encounter Additional Health Concerns Assessment Noted Time PHQ-9 Depression Total Score: 2 02/19/20 17 1:00 PM EDT documented as of this encounter Care Teams Delphi Developer Relationship Specialty Start Date End Date Quentin Mccarty DO [address] [place] [address] PCP - General Internal Medicine 07/23/16 03/15/18 documented as of this encounter
--- OUTSIDE RECORDS SUMMARY | 2024-08-06 17:18 | XMS_ITS | Encounter Summary ---
Author Organization [facility] work ([facility]) Address [address] [facility] [address] [place] [address] Care Team Providers Care Snow Removal Supervisor Name Role Phone Unavailable Primary Care Provider Unavailabl e Source Comments The information that you have received may contain highly confidential and/or federally protected health information. This information has been disclosed to you from records protected by [facility]. The law prohibits you from making [...] information in error, please contact the sender immediately.[facility] ([facility]) Encounter Details Date Type Department Care Team (Late st Contact Info) Description 04/21/2013 Historical Note [facility] HISTORICAL [address] [place] [address] Provider, MD Jose [address] [place] [address] Social History Tobacco Use Types Packs/Day Years Used Date Smoking Tobacco: Never Assessed Sex and Gender Information Value Date Recorded Sex Assigned at Male 08/01/2020 12:55 PM EST Legal Sex Male 6:40 PM EDT Gender Identity Male 08/01/2020 12:55 PM EST Sexual Orientation Straight 08/01/2020 12 :55 PM EST documented as of this encounter Progress Notes * Historical Provider - 09/18/2014 3:13 PM EDT PATIENT: GILBERT TORRES [facility] REC #: [id number] DATE OF ADMISSION: 04/21/2013DATE OF DISCHARGE: DATE OF : 1985UNIT#/ROOM #: ASC OPERATION REPORTPATIENT TYPE: K CC:SURGEON: René Traylor MD PATENT LEATHER SORTER: Dr. Khushboo Smith [facility] OPERATION REPORT DATE: 04/21/2013 SURGEON: René Traylor MD PATENT LEATHER SORTER: Dr. Khushboo Smith ANESTHESIA: PREOPERATIVE DIAGNOSIS(ES): Fistula in ano. 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 2.Recurrent diarrhea, no abscess. OPERATION: Rectal exam under anesthesia, partial fistulotomy and placement of draining anal seton. FINDINGS: There was a seton in place with an underlying 3 cm x 3 cm anterior perianal abscess. No other anorectal abnormalities seen. BRIEF CLINICAL NOTE: The patient is a 27-year-old, otherwise healthy gentleman who had incision anddrainage done in the emergency department and postoperatively developed a fistula. He was taken to the operating room with general surgery where a draining anal seton was put in place and he was then referred for definitive management. Because of the length of the fistula, I recommended undergoing a return to the operating room for rectal exam under anesthesia, and replacing the seton and partialfistulotomy. He understand the risks, benefits, alternatives, and wished to proceed and presents now for his procedure. DETAILS OF PROCEDURE: After informed was obtained, the patient brought to the operating room, placed in supine position. General anesthesia was induced. The legs were placed in high lithotomy. The perineum was prepped and draped in normal sterile fashion. An anorectal block was then infiltrated with local anesthetic. A rectal examination was done. A large Hill-Leung retractor was inserted in the anal canal. Along the left anterior portion of the anus there was a seton which was in place. There was a fluctuant area just anterior to this, when pressed pus emanating from the external portion of the seton. At this point, the seton was cut and a Josefa clamp was placed through the fistulous tra ct. The overlying skin was opened which led to access of approximately a 3 x 3 cm undrained collection of abscess. This was debrided with a curette and hemostasis was achieved with the Bovie electrocautery. The overlying skin was left open, and at this point the internal opening of the fistulous tract was once again cannulated with a fistula probe. An 0 silk was then returned through this, tied to a vessel loop which was then brought back through this fistulous tract and tied upon itself, replacing the draining anal seton. Hemostasis was double checked and having found this to be good, fluffsand mesh panties were used to dress the wound. The patient was awakened from anesthesia, brought tothe recovery room in stable condition. Final sponge, needle counts verified as correct. There were no complications. Physician: René Traylor MD Dictated By: René Traylor MD [facility]/Mike [id number] Electronic Signatures: René Traylor) (Signed on 04/22/2013 11:35) Authored Interfaced from, Adrian (Other) (Entered on 04/21/2013 16:46) Entered Last Updated: 04/22/2013 11:35 by René Traylor) documented in this encounter Plan of Treatment Upcoming Encounters Date Type Department Care Team (Late st Contact Info) Description 07/26/2025 8:15 AM EST Office Visit [facility] [address] [address] Quentin Mccarty DO [address] [place] [address] documented as of this encounter Visit Diagnoses Not on filedocumented in this encounter
--- OUTSIDE RECORDS SUMMARY | 2024-08-06 17:18 | XMS_ITS | Encounter Summary ---
Author Organization [facility] work ([facility]) Address [address] [facility] [address] [place] [address] Care Team Providers Care Cranberry Farm Supervisor Name Role Phone Quentin Mccarty DO Primary Care Provider [phone] Source Comments The information that you have received may contain highly confidential and/or federally protected health information. This information has been disclosed to you from records protected by [email or web address]. The law prohibits you from making [...] information in error, please contact the sender immediately.[employer] ([facility]) Reason for Visit * Reason Onset Date Comments medication clarification 05/18/2017 Encounter Details Date Type Department Care Team ([facility] st Contact Info) Description 05/18/2017 Telephone [place] [address] [place] [address] Helio Escobar LPN medication clarification Social History Tobacco Use Types Packs/Day Years [...] as of this encounter Miscellaneous Notes * Telephone Encounter - Helio Escobar LPN - 05/19/2017 10:13 AM EST Rx called to patient's pharmacy. * Telephone Encounter - Helio Escobar LPN - 05/18/2017 8:24 AM EST Left message to call back. * Telephone Encounter - Helio Escobar LPN - 05/18/2017 8:24 AM EST ----- Message from Napoleon Miller sent at 05/15/2017 7:18 PM EST ----- Regarding: Prescription Question Contact: I believe my medication is at the office again. This has happened a few times, rather than being sent to the [facility] pharmacy on [facility] in the [facility]. Can it please be sent there? documented in this encounter Plan of Treatment Upcoming Encounters Date Type Department Care Team (Late st Contact Info) Description 07/26/2025 8:15 AM EST Office Visit [facility] [address] [address] Quentin Mccarty DO [address] [place] [address] documented as of this encounter Visit Diagnoses Not on filedocumented in this encounter Additional Health Concerns Assessment Noted Time PHQ-9 Depression Total Score: 2 02/19/20 17 1:00 PM EDT documented as of this encounter Care Teams Cranberry Farm Supervisor Relationship Specialty Start Date End Date Quentin Mccarty DO [facility] [place] [address] PCP - General Internal Medicine 07/23/16 03/15/18 documented as of this encounter
--- OUTSIDE RECORDS SUMMARY | 2024-08-06 17:18 | XMS_ITS | Encounter Summary ---
Author Organization [facility] work ([facility]) Address [address] [facility] [address] [place] [address] Care Team Providers Care Scout Name Role Phone Unavailable Primary Care Provider Unavailabl e Source Comments The information that you have received may contain highly confidential and/or federally protected health information. This information has been disclosed to you from records protected by [facility]. The law prohibits you from [...] information in error, please contact the sender immediately.[facility] ([facility]) Encounter Details Date Type Department Care Team (Late st Contact Info) Description 04/11/2020 Nurse Triage [facility] Call Center [address] [place] [address], Floor 2 [place] [address] Arely Boyce, RN Social History Tobacco Use Types Packs/Day Years Used Date Smoking Tobacco: Former Cigarettes 0 07/23/2001 - 07/23/2011 Smokeless Tobacco: Former Chew Quit: 07/23/2014 Alcohol Use Standard Drinks/Week Comments Yes 0 (1 standard drink = 0.6 oz pur e alcohol) 3-4 days per week/ 2-4 drinks Alcohol and Drug Use Answer Date Record [...] AM EST Office Visit [facility] [address] [address] Quentin Mccarty DO [address] [place] [address] documented as of this encounter Visit Diagnoses Not on filedocumented in this encounter Additional Health Concerns Assessment Noted Time PHQ-9 Depression Total Score: 2 02/19/20 17 1:00 PM EDT documented as of this encounter
--- OUTSIDE RECORDS SUMMARY | 2024-08-06 17:18 | XMS_ITS | Encounter Summary ---
Author Organization [facility] work ([facility]) Address [address] [facility] [address] [place] [address] Care Team Providers Care Toll Gate Tender Name Role Phone Quentin Mccarty DO Primary Care Provider [phone] Emiilana Velazquez Unavailable Unavailable Source Comments The information [...] information in error, please contact the sender immediately.[facility] ([facility]) Encounter Details Date Type Department Care Team (Late st Contact Info) Description 10/10/2020 9:15 AM EDT Office Visit [facility] Primary Care [place] [address] [place] [address] Quentin Mccarty DO [address] [phone] Recurrent major depressive disorder, in partial remission [...] have Coronavirus / COVID-19? No / Unsure 10/10/2020 9:25 AM EDT documented as of this encounter Progress Notes * Quentin Mccarty, DO - 10/10/2020 9:15 AM EDT PROGRESS NOTE CC: No chief complaint on file. Consultation was provided from my clinic office via two-way live video conferencing. The patient was located at [address] [place] [address] , within the [facility]. The encounter occurred via telemedicine as a convenience to the patient. Vitals recorded in visit today were patient reported and are recorded as such. Any vitals not obtained, were unavailable due to patient inability or unwillingness to provide. Subjective Napoleon Miller is a 34 y.o. male who is here for No chief complaint on file. He has a has a past medical history of Allergic (Childhood), Anxiety and depression, Asthma (Childhood), Headache, and Varicella (Childhood).. Patient presents for follow up. His depression and anxiety are improving, but still present. He is having less panic attacks, down from daily to 3-4 times per week. He denies SI or HI and has been following with counseling as well. Patient reports he has enough food and [...] noted in electronic record. Imported documents from [employer] are reviewed. PHQ-9 Screen Results: ROS Review [...] Hematological: Negative for adenopathy. Psychiatric/Behavioral: Positive for dysphoric mood. The patient is nervous/anxious. Objective Physical Exam Vitals signs reviewed. Constitutional: Appearance: [...] and Plan Greater than 50% of the 30 minutes spent [id number] with patient spent in counseling the patient and coordinating care. Counseling included discussion and recommendations for The encounter diagnosis was Recurrent major depressive disorder, in partial remission (HCC). Diagnoses and all orders for this visit: Recurrent major depressive disorder, in partial remission (HCC) Comments: doing slightly better with the Wellbutrin, will increase dose to 200 mg. continue counseling as well. Quentin Mccarty DO 10/10/2020 documented in this encounter Plan of Treatment Upcoming Encounters Date Type Department Care Team (Late st Contact Info) Description 07/26/2025 8:15 AM EST Office Visit [facility] [address] [address] Quentin Mccarty DO [address] [place] [address] documented as of this encounter Visit Diagnoses Diagnosis Recurrent major depressive disorder, in partial remission (HCC)- Primary documented in this encounter Additional Health Concerns Assessment Noted Time PHQ-9 Depression Total Score: 5 10/11/19 2:00 PM EDT PHQ-2 Depression Total Score: 2 10/11/19 2:00 PM EDT documented as of this encounter Care Teams Toll Gate Tender Relationship Specialty Start Date End Date Quentin Mccarty DO [address] [place] [address] PCP - General Internal Medicine 08/02/20 Emiliana Velazquez Behavioral Health Nitro Man Psychology 08/03/20 01/03/21 documented as of this encounter
--- OUTSIDE RECORDS SUMMARY | 2024-08-06 17:18 | XMS_ITS | Encounter Summary ---
Author Organization [facility] work ([facility]) Address [address] [address] Care Team Providers Care Classics Professor Name Role Phone Quentin Mccarty DO Primary Care Provider [phone] Emiliana Velazquez Unavailable Unavailable Source Comments The information that you have received may contain highly confidential and/or federally protected health information. This information has been disclosed to you from records protected by [facility]. The law prohibits you from [...] information in error, please contact the sender immediately.[facility] ([facility]) Reason for Visit * Reason Comments Anxiety Encounter Details Date Type Department Care Team (Latest Contact Info) Description 08/03/2020 10:30 AM EST Clinical Support [facility] Primary Care [place] [address] [place], [place] [phone] Emiliana Velazquez Recurrent major depressive disorder, in [...] AM EST documented as of this encounter Mental Status * Problems Bothering Patient in the Last 2 Weeks Question Answer Entry Date Author KRISTIN-7 Total Score 14 08/03/2020 10:00 AM EST Emiliana Velazquez documented in this encounter Progress Notes * Emiliana Velazquez - 08/03/2020 10:30 AM EST Behavioral Health Property Field Inspector Progress Note Name: Napoleon Miller : 1985 Date: 08/03/2020 Plan Encounter Diagnosis: 1. Recurrent major depressive disorder, in partial remission (HCC) Plan 08/03/2020 Intervention Type initial assessment and/or use of validated rating scales with patient (collaborative care);provision of brief interventions using evidence based techniques (collaborative care);continuity of care with a designated member of the care team (collaborative care);goal setting (collaborative care) Treatment Goals improve coping skills;improve overall mood;improve relaxation skills;improve self-care routine;reduce anxiety symptoms Patient goal in their own words: Would like to feel more confident and relaxed. Don't want to feel as overwhelmed and have more control of my mind and feelings. Want a plan or things to work on. Patient motivation in their own words: I can practice what we talked about. Follow up 08/03/2020 Does the patient need follow up Yes Patient agrees to follow up visit/contact or referral to other services Yes Patient Agrees to try a new behavior in the next 7 days Yes If this is a follow up visit, is patient making progress towards their goal(s) N/A Resources Provided Educational materials/psycho-educational materials Is the patient making progress in the self management of their chronic condition? N/A Return in about 2 weeks (around 08/17/2020). Referral Referral 08/03/2020 Type of visit First contact pt engaged Type of contact Video Visit Start time with patient 10:24 AM End time with patient 11:07 AM Total time spent with patient (in minutes) 43 Reason for referral pt Mental Health Condition Assessment Clinical Impression: [facility] and pt had initial session over video after referral from Dr. Mccarty. Reviewed role of [facility]. Reviewed pt's PHQ-9 score from appt yesterday (scored in severe range) and also completed KRISTIN-7 (pt scored in moderate range). Pt shared that depression and anxiety sx have increased over the past few months. Feels that not being able to be as active outside and having to work remotely have contributed. Reports that he has panic attacks (feelings of impending doom, helplessness and hopelessness, tingling in extremities and head, sweating and racing heart) about 2-3 times a week, usually in late morning. Reports that he has been cutting back on caffeine and increasing water intake which is somewhat helpful. Reviewed activities that pt finds relaxing, notes that he finds taking a bath or listening to music calming. Reviewed several tools that pt can practice in between sessions. Educated him on how diaphragmatic breathing practices and tip the temperature techniques can be beneficial to practice and provided some suggestions for this, also sent information about these strategies through [employer]. Pt reports feeling a lot of pressure with work at times. Also shared about of a close friend that occurred last year, discussed how this loss has affected him. Pt reports that he is and two children, ages 3 and 4. Reports his family is supportive. Pt is agreeable to meeting in 2 weeks by video. Will update care team. Described to patient the team based care approach including the role of the Behavioral Health Property Field Inspector. Explained to the patient that the documentation by the [facility] including behavioral health and substance abuse information will be accessible to all members of the care team. The patient verbalizesunderstanding of this team based care approach including the use of a shared electronic medical record. Screening Results 08/03/2020 PHQ-9 Total Score - KRISTIN-7 Total Score 14 Mental Status Exam: Physical Exam Psychiatric: Attention and Perception: Attention and perception normal. Mood and Affect: Mood is depressed. Affect is tearful. Speech: Speech normal. Behavior: Behavior normal. Behavior is cooperative. Thought Content: Thought content normal. Cognition and Memory: Cognition and memory normal. Judgment: Judgment normal. Barriers and Strengths 08/03/2020 Barriers grief (unresolved) Strengths healthy communication skills;interesting in learning how to make changes;motivated for change;positive social support system;stable relationships Safety Harm to self: no suicidal ideation, intent or plan. Harm to others: no homicidal ideation, intent or plan. Emiliana Velazquez Behavioral Health Property Field Inspector documented in this encounter Plan of Treatment Upcoming Encounters Date Type Department Care Team (Late st Contact Info) Description 07/26/2025 8:15 AM EST Office Visit [facility] [address] [phone] Quentin Mccarty DO [address] [place] [phone] documented as of this encounter Visit Diagnoses Diagnosis Recurrent major depressive disorder, in partial remission (HCC)- Primary documented in this encounter Additional Health Concerns Assessment Noted Time PHQ-9 Depression Total Score: 20 021 11:08 AM EST PHQ-2 Depression Total Score: 6 08/02/19 21 11:08 AM EST documented as of this encounter Care Teams Classics Professor Relationship Specialty Start Date End Date Quentin Mccarty DO [address] [place] [address] PCP - General Internal Medicine 08/02/20 Emiliana Velazquez Behavioral Health Property Field Inspector Psychology 08/03/20 01/03/21 documented as of this encounter
--- OUTSIDE RECORDS SUMMARY | 2024-08-06 17:18 | XMS_ITS | Encounter Summary ---
Author Organization [facility] work ([facility]) Address [address] [facility] [address] [place] [address] Care Team Providers Care Machine Cutter Name Role Phone Quentin Mccarty DO Primary Care Provider [phone] Emilaina Velazquez Unavailable Unavailable Source Comments The information that you have received may contain highly confidential and/or federally protected health information. This information has been disclosed to you from records protected by [facility]. The law prohibits you from making [...] please contact the sender immediately.[facility] ([facility]) Encounter Details Date Type Department Care Team (Late st Contact Info) Description 08/21/2020 Orders Only [facility] Primary Care [place] [address] [place] [address] Quentin Mccarty DO [address] [place], [place] [phone] Social History Tobacco Use Types Packs/Day Years [...] have Coronavirus / COVID-19? Unable to assess 08/21/2020 9:06 AM EST documented as of this encounter Ordered Prescriptions Prescription Sig Dispense Quantity Refills Last Filled Start Date End Date buPROPion (WELLBUTRIN SR) 150 MG 12 hr tablet Take 1 tablet (150 mg total) by mouth 2 (two) times a day. 60 tablet 11 08/21/2020 09/10/2020 documented in this encounter Plan of Treatment Upcoming Encounters Date Type Department Care Team (Late st Contact Info) Description 07/26/2025 8:15 AM EST Office Visit [facility] [address] [phone] Quentin Mccarty DO [address] [place] [phone] documented as of this encounter Visit Diagnoses Not on filedocumented in this encounter Discontinued Medications Medication Sig Discontinue Reason Start Date End Da te buPROPion (WELLBUTRIN) 75 MG tablet Take 1 tablet (75 mg total) by mouth 2 (two) times a day. 08/15/2020 08/21/2020 documented as of this encounter Additional Health Concerns Assessment Noted Time PHQ-9 Depression Total Score: 20 021 11:08 AM EST PHQ-2 Depression Total Score: 6 08/02/19 21 11:08 AM EST documented as of this encounter Care Teams Machine Cutter Relationship Specialty Start Date End Date Quentin Mccarty DO [address] [place] [address] PCP - General Internal Medicine 08/02/20 Emiliana Velazquez Behavioral Health Sugar Reprocess Operator Head Psychology 08/03/20 01/03/21 documented as of this encounter
--- OUTSIDE RECORDS SUMMARY | 2024-08-06 17:18 | XMS_ITS | Encounter Summary ---
Author Organization [facility] work ([facility]) Address [address] [facility] [address] [place] [address] Care Team Providers Care Shooting Gallery Operator Name Role Phone Unavailable Primary Care Provider Unavailabl e Source Comments The information that you have received may contain highly confidential and/or federally protected health information. This information has been disclosed to you from records protected by [facility]. The law prohibits you from [...] in error, please contact the sender immediately.[facility] ([facility]) Encounter Details Date Type Department Care Team (Late st Contact Info) Description 09/01/2013 Historical Note [facility] HISTORICAL [address] [place] [address] Provider, MD Jose [address] [place] [address] Social History Tobacco Use Types Packs/Day [...] 09/18/2014 3:13 PM EDT PATIENT: GILBERT TORRES [facility] REC #: [id number] DATE OF ADMISSION: 09/01/2013DATE OF DISCHARGE: DATE OF : 1985UNIT#/ROOM #: ASC OPERATION REPORTPATIENT TYPE: K CC:SURGEON: Thiago Traylor MD HOUSEHOLD ASSISTANT: MD Carolina MancusoahMD Jos Deluna [facility] OPERATION REPORT DATE: 09/01/2013 SURGEON: Thiago Traylor MD HOUSEHOLD ASSISTANT: Angela Olson MD ANESTHESIA: General. 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 OPERATION: Rectal examination under anesthesia with primary fistulotomy. ESTIMATED BLOOD LOSS: 5. FINDINGS: His chronic anterior fistula in ano with re-epithelialized fistulous tract, which was quite superficial. No other anorectal pathology was seen. BRIEF CLINICAL NOTE: The patient is an otherwise healthy 27-year-old gentleman who underwent incision and drainage of perianal abscess and placement of a draining anal seton. This required repeat drainage procedure and replacement of a seton in the past. He has had no issues with fecal incontinenceand has had this chronic drainage since his initial procedure. After discussed with him the risks, benefits, and alternatives to anal advancement flap versus fistulotomy he wished to proceed and presents now for surgery. DESCRIPTION OF PROCEDURE: After informed consent was obtained, the patient was brought to the operative room and placed in the supine position. General anesthesia and IV antibiotics were administered. The patient was then flipped in the prone toma-knife position. The butt cheeks were taped apart, and the perineum was prepped and draped in a normal sterile fashion. An anorectal block was then infiltrated with local anesthetic, and a large Hill-Leung retractor was inserted in the anal canal and an anorectal examination was done. The fistulous tract was anterior and was actually quite superficial with a minimal amount of sphincter involved. There was chronic granulation tissue along the most external portion of this tract, and internally the tract has actually re- epithelialized. A fistulaprobe was passed through this without difficulty, and the overlying skin and subcutaneous tissues were divided with the Bovie electrocautery. The granulation tissue was curetted, and Bovie electrocautery was used for hemostasis. Upon completion of the procedure, the operative field was double checked for hemostasis, and having found this to be good, the perineum was dressed with fluff gauze and mesh undergarments. His was awakened from his anesthesia and brought to the recovery room in stable condition. Final sponge and needle counts were verified as correct. No complications. PHYSICIAN: THIAGO TRAYLOR MD Dictated By: Thiago Traylor MD [facility]/MedQ [id number] Electronic Signatures: Thiago Traylor) (Signed on 09/02/2013 10:12) Authored Interfaced from, Adrian (Other) (Entered on 09/01/2013 12:18) Entered Last Updated: 09/02/2013 10:12 by Thiago Traylor) documented in this encounter Plan of Treatment Upcoming Encounters Date Type Department Care Team (Late st Contact Info) Description 07/26/2025 8:15 AM EST Office Visit [facility] [address] [address] Quentin Mccarty DO [address] [place] [address] documented as of this encounter Visit Diagnoses Not on filedocumented in this encounter
--- OUTSIDE RECORDS SUMMARY | 2024-08-06 17:18 | XMS_ITS | Encounter Summary ---
Author Organization [facility] work ([facility]) Address [address] [facility] [address] [place] [address] Care Team Providers Care Sign Builder Name Role Phone Quentin Mccarty DO Primary Care Provider Source Comments The information that you have received may contain highly confidential and/or federally protected health information. This information has been disclosed to you from records protected by [facility]. The law prohibits you [...] error, please contact the sender immediately.[facility] ([facility]) Reason for Referral * Consultation (Routine) - Closed Specialty Diagnoses / Procedures Referred By Contac t Referred To Contact Orthopedic Surgery Diagnoses Knee instability, left Quentin Mccarty DO [address] [place] [address] Phone: tel: fax: Isaiah Chavez MD Phone: tel: fax: Referral ID Status Reason Start Date Expiration Date V isits Requested Visits Authorized [id number] Closed Specialty Services Required 07/24/2017 07/24/2018 1 1 Encounter Details Date Type Department Care Team (Late st Contact Info) Description 07/24/2017 Orders Only [facility] Primary Care [address] [address] Quentin Mccarty DO [address] [place] [id number] Knee instability, left (Primary Dx) Social History Tobacco Use Types [...] Description 07/26/2025 8:15 AM EST Office Visit [facility] [address] [address] Quentin Mccarty DO [address] [place] [address] Scheduled Referrals Name Type Priority Associated Diagnoses Order Schedule Ambulatory referral to Orthopedic Surgery Outpatient Referral Routine Knee instability, left Expected: 07/25/2017, Expires: 01/21/2018 documented as of this encounter Visit Diagnoses Diagnosis Knee instability, left- Primary documented in this encounter Additional Health Concerns Assessment Noted Time PHQ-9 Depression Total Score: 2 02/19/20 17 1:00 PM EDT documented as of this encounter Care Teams Sign Builder Relationship Specialty Start Date End Date Quentin Mccarty DO [facility] [place] [address] PCP - General Internal Medicine 07/23/16 03/15/18 documented as of this encounter
--- OUTSIDE RECORDS SUMMARY | 2024-08-06 17:18 | XMS_ITS | Encounter Summary ---
Author Organization [facility] work ([facility]) Address [address] [address] Care Team Providers Care Curbing Stonecutter Name Role Phone Quentin Mccarty DO Primary Care Provider [phone] Emiliana Velazquez Unavailable Unavailable Source Comments The information that you have received may contain highly confidential and/or federally protected health information. This information has been disclosed to you from records protected by [facility]. The law prohibits you from making [...] the sender immediately.[facility] ([facility]) Reason for Visit * Reason Comments Follow-up Encounter Details Date Type Department Care Team ([facility] Contact Info) Description 09/10/2020 11:45 AM EDT Office Visit [facility] Primary Care [place] [address] [place] [address] Quentin Mccarty DO [address] [place] [address] Recurrent major depressive disorder, in partial remission [...] Sign Reading Time Taken Comments Blood Pressure 134/72 09/10/2020 11:33 AM EDT Pulse 102 09/10/2020 11:33 AM EDT Temperature 36.6 ??C (97.9 ??F) 09/10/2020 11:33 AM E DT Respiratory Rate 12 09/10/2020 11:33 AM EDT Oxygen Saturation 96% 09/10/2020 11:33 AM EDT Inhaled Oxygen Concentration - - Weight 109.8 kg (242 lb) 09/10/2020 11:33 AM EDT Height 188 cm (6' 2) 09/10/2020 11:33 AM EDT Body Mass Index 31.07 09/10/2020 11:33 AM EDT documented in this encounter Functional Status documented as of this encounter Ordered Prescriptions Prescription Sig Dispense Quantity Refills Last Filled Start Date End Date buPROPion (WELLBUTRIN SR) 150 MG 12 hr tablet Take 1 tablet (150 mg total) by mouth 2 (two) times a day. 60 tablet 11 09/10/2020 10/11/2020 documented in this encounter Progress Notes * Quentin Mccarty, DO - 09/10/2020 11:45 AM EDT PROGRESS NOTE CC: Napoleon Miller is a 34 y.o. male who is here for Follow-up Subjective The encounter diagnosis was Recurrent major depressive disorder, in partial remission (HCC). Patient presents for follow up. He is tolerating the Wellbutrin and his dose was increased to 150 mg BID without side effects. He is feeling better without blunting of his emotions. He has been following with the [facility] as well and working on home exercises. Meds/PMFSHx: The following portions of the patient's history were reviewed and updated as appropriate: allergies, current medications, past family history, past medical history, past social history, past surgicalhistory and problem list. Imported documents from [employer] and [employer] are reviewed. Patient Active Problem List Diagnosis ??? Recurrent major depressive disorder, in partial remission (HCC) Current Outpatient Medications Medication Sig Dispense Refill ??? ALPRAZolam (XANAX) 1 MG tablet Take 1 tablet (1 mg total) by mouth nightly as needed for anxiety for up to 15 days. Max Daily Amount: 1 mg 15 tablet 0 ??? buPROPion (WELLBUTRIN SR) 150 MG 12 hr tablet Take 1 tablet (150 mg total) by mouth 2 (two) times a day. 60 tablet 11 No current facility-administered medications for this visit. [...] for adenopathy. Psychiatric/Behavioral: Positive for dysphoric mood. Vitals: 09/10/20 1133 BP: 134/72 BP Location: Right arm Patient Position: Sitting Cuff Size: Large Adult Pulse: 102 Resp: 12 Temp: 97.9 ??F (36.6 ??C) TempSrc: Oral SpO2: 96% Weight: (!) 242 lb (109.8 kg) Height: 6' 2 (1.88 m) Physical Exam [...] depressive disorder, in partial remission (HCC) Comments: stable on Wellbutrin and counseling. will continue 150 mg BID dosing and reassess in four weeks Other orders - buPROPion (WELLBUTRIN SR) 150 MG 12 hr tablet; Take 1 tablet (150 mg total) by mouth 2 (two) times a day. Quentin Mccarty DO 09/10/2020 documented in this encounter Plan of Treatment Upcoming Encounters Date Type Department Care Team (Late st Contact Info) Description 07/26/2025 8:15 AM EST Office Visit [facility] [address] [facility] [phone] Quentin Mccarty DO [address] [place], [place] [phone] documented as of this encounter Visit Diagnoses Diagnosis Recurrent major depressive disorder, in partial remission (HCC)- Primary documented in this encounter Discontinued Medications Medication Sig Discontinue Reason Start Date End Da te buPROPion (WELLBUTRIN SR) 150 MG 12 hr tablet Take 1 tablet (150 mg total) by mouth 2 (two) times a day. Reorder 08/21/2020 09/10/2020 documented as of this encounter Additional Health Concerns Assessment Noted Time PHQ-9 Depression Total Score: 4 09/11/19 11:34 AM EDT PHQ-2 Depression Total Score: 1 09/11/19 11:34 AM EDT documented as of this encounter Care Teams Curbing Stonecutter Relationship Specialty Start Date End Date Quentin Mccarty DO [address] [place] [id number] PCP - General Internal Medicine 08/02/20 Emiliana Velazquez [facility] [employer] [facility] 08/03/20 01/03/21 documented as of this encounter
--- OUTSIDE RECORDS SUMMARY | 2024-08-06 17:18 | XMS_ITS | Encounter Summary ---
Author Organization [facility] work ([facility]) Address [address] [facility] [address] [place] [address] Care Team Providers Care Supervisor Shop Name Role Phone Quentin Mccarty DO Primary Care Provider [phone] Source Comments The information that you have received may contain highly confidential and/or federally protected health information. This information has been disclosed to you from records protected by [email or web address]. The law prohibits you [...] information in error, please contact the sender immediately.[facility] ([facility]) Reason for Visit * Reason Comments Knee Pain Left * Consultation (Routine) - Closed Specialty Diagnoses / Procedures Referred By Contac t Referred To Contact Orthopedic Surgery Diagnoses Knee instability, left Quentin Mccarty DO [address] [place] [address] Phone: tel: fax: Isaiah Chavez MD Phone: tel: fax: Referral ID Status Reason Start Date Expiration Date V isits Requested Visits Authorized [id number] Closed Specialty Services Required 07/24/2017 07/24/2018 1 1 Encounter Details Date Type Department Care Team (Late st Contact Info) Description 07/31/2017 8:00 AM EST Office Visit [facility] [address] [place] [address] Slava Miranda MD [address] [facility] [address] [facility] [place] [address] Patellar tendinitis of left knee (Primary Dx); Knee instability, left Social History Tobacco Use [...] Sign Reading Time Taken Comments Blood Pressure - - Pulse 64 07/31/2017 8:14 AM EST Temperature 36.4 ??C (97.6 ??F) 07/31/2017 8:14 AM ES T Respiratory Rate 16 07/31/2017 8:14 AM EST Oxygen Saturation - - Inhaled Oxygen Concentration - - Weight 112 kg (247 lb) 07/31/2017 8:14 AM EST Height 189.2 cm (6' 2.5) 07/31/2017 8:14 AM EST Body Mass Index 31.29 07/31/2017 8:14 AM EST documented in this encounter Ordered Prescriptions Prescription Sig Dispense Quantity Refills Last Filled Start Date End Date diclofenac (VOLTAREN) 75 MG EC tabletIndications: Patellar tendinitis of left knee Take 1 tablet (75 mg total) by mouth 2 (two) times a day. 60 tablet 07/31/2017 07/31/2018 documented in this encounter Progress Notes * Slava Miranda MD - 07/31/2017 8:00 AM EST History: Napoleon Miller is a 31 y.o. male who present to the office today for evaluation of left knee pain. They have been having knee pain for 6 months.There was not a specific injury The pain in the knee is located anterior and is intermittent in nature. They state that the pain has been getting unchanged and is rated a 4 out of 10. Their symptoms improve with rest and are worse with stair climbing. They denies clicking/popping sensation in the knee and the knee has given out or felt unstable. He does not have complaints of swelling in the knee. There is not a previous history of knee problems . There has been no treatment to date. His biggest problem is a feeling of instability more so than pain. He does a lot of work around the house lot of squatting and kneeling in the seems to aggravate the symptoms as well The patient has not had previous knee surgeries . HPI The following portions of the patient's history were reviewed and updated as appropriate: He has a past medical history of Anxiety and depression. He has a past surgical history that includes Eye surgery; Mora tooth extraction; and Anus surgery. His family history includes Anxiety disorder in his father, mother, and sister; Breast cancer in his mother; Colon cancer in his maternal grandfather and maternal grandmother; Depression in his mother and sister; Heart disease in his paternal grandmother and paternal uncle; Hypertension in his father; Pancreatic cancer in his paternal grandfather. He reports that he quit smoking about 6 years ago. His smoking use included Cigarettes. He quit after 10.00 years of use. He quit smokeless tobacco use about 3 years ago. His smokeless tobacco use included Chew. He reports that he drinks alcohol. He reports that he does not use drugs. Current Outpatient Prescriptions Medication Sig Dispense Refill ??? ALPRAZolam (XANAX) 0.5 MG tablet Take 1 tablet (0.5 mg total) by mouth nightly as needed for anxiety for up to 30 doses. 30 tablet 0 ??? cephalexin (KEFLEX) 500 MG capsule ??? venlafaxine (EFFEXOR) 75 MG tablet Take 1 tablet (75 mg total) by mouth 2 (two) times a day for90 days. 60 tablet 2 ??? azithromycin (AZASITE) 1 % ophthalmic solution Apply 1 drop to both eyes twice daily for 2 daysand then daily for 5 days. 2.5 mL 0 ??? ibuprofen (MOTRIN) 600 MG tablet TAKE ONE TABLET BY MOUTH THREE TIMES A DAY AFTER MEALS. BEGIN AFTER STEROIDS ARE DISCONTINUED 2 No current facility-administered medications for this visit. He has No Known Allergies.. Review of Systems 14 point negative save history of present illness Objective: BilateralHip Exam General Appearancenormaql( Gait normal [id number] Gguleuncv34 Hwgquoizf30 Pain with log rollNo Flexion/Internal Rotation 40 Neurovascularintact Trochanteric painNo BilateralKnee Exam General Appearance normal bilateral Gait normal Effusion0 right, 1+ left Lachmans0 bilateral Medial/lateral laxity extension 0 Medial/lateral laxity flexion0 Posterior laxity 0 Medial joint line tendernessNo Lateral joint line tendernessNo Mcmurrays medial No McMurrays lateralNo Rutland patellar compression testpositive mild left only Apprehensionnegative Neurovascularintact Significant discomfort inferior pole patella left Straight leg raise at 30?? left Radiography AP Weight bearing lateral and skyline Leftknee normal by my interpretation Impression: Patellar tendinitis left knee very tight hamstrings Plan: PT program and Voltaren follow-up in a month Slava Miranda MD This note has been generated by a word recognition computerized program. There may be typographical, grammatical or word substitution errors which have escaped my editorial review. documented in this encounter Plan of Treatment Upcoming Encounters Date Type Department Care Team (Late st Contact Info) Description 07/26/2025 8:15 AM EST Office Visit [facility] [address] [address] Quentin Mccarty DO [address] [place] [address] documented as of this encounter Results * X-ray knee left 3 views (07/31/2017 8:28 AM EST) Impressions [facility] - 07/31/2017 8:28 AM EST to progress note for imaging results. Narrative [facility] - 07/31/2017 8:28 AM EST Refer us Slava Miranda MD IMG DIAGNOSTIC IMAGING ORDERAB LES Final Result [facility] documented in this encounter Visit Diagnoses Diagnosis Patellar tendinitis of left knee- Primary Knee instability, left Knee instability, left documented in this encounter Historical Medications * This list may reflect changes made after this encounter. Medication Sig Dispense Quantity Refills Last Filled Start D ate End Date cephalexin (KEFLEX) 500 MG capsule 07/25/2017 08/02/2020 added in this encounter Orders Outpatient Referral Count Last Ordered Date Fir st Ordered Date AMB REFERRAL TO ORTHOPEDIC SURGERY 1 2017 documented in this encounter Additional Health Concerns Assessment Noted Time PHQ-9 Depression Total Score: 2 02/19/20 17 1:00 PM EDT documented as of this encounter Care Teams Supervisor Shop Relationship Specialty Start Date End Date Quentin Mccarty DO [address] [place] [address] PCP - General Internal Medicine 07/23/16 03/15/18 documented as of this encounter
--- OUTSIDE RECORDS SUMMARY | 2024-08-06 17:18 | XMS_ITS | Encounter Summary ---
Author Organization [facility] work ([facility]) Address [address] [facility] [address] [place] [address] Care Team Providers Care [employer] Senior Sergeant Name Role Phone Quentin Mccarty DO Primary Care Provider [phone] Source Comments The information that you have received may contain highly confidential and/or federally protected health information. This information has been disclosed to you from records protected by [employer] [facility]. The law prohibits you from making [...] information in error, please contact the sender immediately.[facility] ([facility]) Reason for Visit * Reason Comments Follow-up Encounter Details Date Type Department Care Team (Late st Contact Info) Description 10/22/2016 8:15 AM EDT Office Visit [facility] Primary Care [place] [address] [place] [address] Quentin Mccarty DO [address] [id number] Encounter for lipid screening for cardiovascular disease (Primary Dx); Diabetes mellitus screening; Recurrent major depressive disorder, in partial remission [...] Sign Reading Time Taken Comments Blood Pressure 110/66 10/22/2016 8:16 AM EDT Pulse 56 10/22/2016 8:16 AM EDT Temperature - - Respiratory Rate 16 10/22/2016 8:16 AM EDT Oxygen Saturation 98% 10/22/2016 8:16 AM EDT Inhaled Oxygen Concentration - - Weight 107 kg (236 lb) 10/22/2016 8:16 AM EDT Height 189.2 cm (6' 2.5) 10/22/2016 8:16 AM EDT Body Mass Index 29.9 10/22/2016 8:16 AM EDT documented in this encounter Ordered Prescriptions Prescription Sig Dispense Quantity Refills Last Filled Start Date End Date venlafaxine (EFFEXOR) 50 MG tablet Take 1 tablet (50 mg total) by mouth 2 (two) times a day for 90 days. 60 tablet 1 10/22/2016 11/13/2016 documented in this encounter Progress Notes * Quentin Mccarty, - 10/22/2016 8:15 AM EDT PROGRESS NOTE CC: Napoleon Miller is a 30 y.o. male who is here for Follow-up Subjective The primary encounter diagnosis was Encounter for lipid screening for cardiovascular disease. Diagnoses of Diabetes mellitus screening and Recurrent major depressive disorder, in partial remission (HCC) were also pertinent to this visit. Patient presents for follow up with Depression. He had been doing well with Lexapro but has noted vegetative symptoms including fatigue with increasing doses. Otherwise he is seeing his counselor weekly and making progress. Meds/PMFSHx: The following portions of the patient's history were reviewed and updated as appropriate: allergies, current medications, past family history, past medical history, past social history, past surgicalhistory and problem list. Imported documents from [employer] are reviewed. Patient Active Problem List Diagnosis ??? Recurrent major depressive disorder, in partial remission (HCC) Current Outpatient Prescriptions Medication Sig Dispense Refill ??? ALPRAZolam (XANAX) 0.5 MG tablet Take 1 tablet (0.5 mg total) by mouth nightly as needed for anxiety for up to 20 doses. 20 tablet 0 ??? venlafaxine (EFFEXOR) 50 MG tablet Take 1 tablet (50 mg total) by mouth 2 (two) times a day for90 days. 60 tablet 1 No current facility-administered medications for [...] Hematological: Negative for adenopathy. Psychiatric/Behavioral: Negative. Vitals: 10/22/16 0816 BP: 110/66 BP Location: Left arm Patient Position: Sitting Cuff Size: Large Adult Pulse: 56 Resp: 16 SpO2: 98% Weight: (!) 236 [...] Diagnoses and all orders for this visit: Encounter for lipid screening for cardiovascular disease - Lipid panel Diabetes mellitus screening - Basic Metabolic Panel Recurrent major depressive disorder, in partial remission (HCC) Comments: Will change to Effexor for help with vegetative complaints. Recheck in three weeks and adjust as needed. Other orders - venlafaxine (EFFEXOR) 50 MG tablet; Take 1 tablet (50 mg total) by mouth 2 (two) times a day for 90 days. Quentin Mccarty DO 10/22/2016 documented in this encounter Plan of Treatment Upcoming Encounters Date Type Department Care Team (Late st Contact Info) Description 07/26/2025 8:15 AM EST Office Visit [facility] PRIMARY CARE [address] [phone] Quentin Mccarty DO [address] [place] [address] documented as of this encounter Procedures Procedure Name Priority Date/Time Associated Diagnosis Comments LIPID PANEL W/REFLEX TO DIRECT LDL Routine 10/22/2016 8:33 AM EDT Encounter for lipid screening for cardiovascular disease BASIC METABOLIC PANEL Routine 10/22/2016 8:33 AM EDT Diabetes mellitus screening documented in this encounter Results * Lipid panel (10/22/2016 8:33 AM EDT) [facility] Signature Cholesterol 187 120 - 199 mg/dL 10/22/2016 6:42 PM EDT [facility] Triglycerides 112 0 - 150 mg/dL 10/22/2016 6:42 PM EDT [facility] HDL 58 >39 mg/dL 10/22/2016 6:42 PM EDT [facility] LDL Calculated 107 60 - 129 mg/dL 10/22/2016 6:42 PM T [facility] Blood specimen (specimen) Blood specimen / Unknown Venipuncture / Unknown 10/22/2016 8:33 AM EDT 10/22/2016 6:11 PM EDT [facility] - 10/22/2016 6:42 PM EDT RISK CATEGORY 1: Patients having [...] history of premature CHD, or on antihypertensive medications.RISK CATEGORY 2: Patients having 2 or more [...] DO LAB BLOOD ORDERABLES Final Resul t [facility] [address] [place] [address] * (ABNORMAL) Basic Metabolic Panel (10/22/2016 8:33 AM EDT) Glucose 102(H) 70 - 99 mg/dL 10/22/2016 6:42 PM EDT [facility] BUN 14 9 - 20 mg/dL 10/22/2016 6:42 PM [facility] Creatinine 0.69(L) 0.70 - 1.50 mg/dL 10/22/2016 6:42 PM T [facility] GFR MDRD >60 10/22/2016 6:42 PM [facility] Comment:Consider Cockcroft-G sammie equation (not MDRD) for drug dosing. Reported in units (mL/min/1.73m2) to normalize for average BSA. Results for both /Other and Americans are reported. Values < 60 are associated with chronic kidney disease. GFR MDRD Non- >60 10/22/2016 6:42 PM T [facility] Sodium 141 134 - 142 mmol/L 10/22/2016 6:42 PM [facility] Potassium 4.7 3.5 - 5.0 mmol/L 10/22/2016 6:42 PM [facility] Chloride 101 98 - 107 mmol/L 10/22/2016 6:42 PM [facility] CO2 28 22 - 30 mmol/L 10/22/2016 6:42 PM [facility] Anion Gap 12 4 - 16 mmol/L 10/22/2016 6:42 PM [facility] Calcium 9.5 8.4 - 10.3 mg/dL 10/22/2016 6:42 PM [facility] Blood specimen (specimen) Blood specimen / Unknown 10/22/2016 8:33 AM EDT 10/22/2016 6:11 PM EDT us Quentin Mccarty DO LAB BLOOD ORDERABLES Final Resul t [facility] [address] [place] [address] documented in this encounter Visit Diagnoses Diagnosis Encounter for lipid screening for cardiovascular disease- Primary Diabetes mellitus screening Screening for diabetes mellitus Recurrent major depressive disorder, in partial remission (HCC) documented in this encounter Discontinued Medications Medication Sig Discontinue Reason Start Date End Da te escitalopram (LEXAPRO) 10 MG tablet Take 1.5 tablets (15 mg total) by mouth daily for 90 days. 09/10/2016 10/22/2016 documented as of this encounter Care Teams [employer] Senior Sergeant Relationship Specialty Start Date End Date Quentin Mccarty DO [address] [place] [id number] PCP - General Internal Medicine 07/23/16 03/15/18 documented as of this encounter
--- OUTSIDE RECORDS SUMMARY | 2024-08-06 17:18 | XMS_ITS | Encounter Summary ---
Author Organization [facility] [employer] [facility] work ([facility]) Address [address] [address] Care Team Providers Care Manager Technical Services Name Role Phone Quentin Mccarty DO Primary Care Provider [phone] Emiliana Velazquez Unavailable Unavailable Source Comments The information that you have received may contain highly confidential and/or federally protected health information. This information has been disclosed to you from records protected by [facility]. The law prohibits you from [...] information in error, please contact the sender immediately.[facility] ([facility]) Reason for Visit * Reason Comments Supportive Care Encounter Details Date Type Department Care Team (Latest Contact Info) Description 08/24/2020 10:30 AM EST Clinical Support [facility] Primary Care [place] [address] [place], [place] [phone] Emiliana Velazquez Recurrent major depressive disorder, in partial remission (HCC) (Primary Dx) Social History Tobacco Use Types Packs/Day Years Used Date Smoking Tobacco: Former Cigarettes Q uit: 07/23/2001 Smokeless Tobacco: Former Chew Quit: 07/23/2014 Alcohol Use Standard Drinks/Week Comments Yes 13 (1 standard drink = 0.6 oz pu re alcohol) 3-4 days per week/ 2-4 drinks PHQ-2 Answer Date Recorded PHQ-2 Score 10 08/24/2020 Alcohol and Drug Use Answer Date Record [...] have Coronavirus / COVID-19? Unable to assess 08/24/2020 11:06 AM EST documented as of this encounter Mental Status * Problems Bothering Patient in the Last 2 Weeks Question Answer Entry Date Author KRISTIN-7 Total Score 15 08/24/2020 10:00 AM EST Emiliana Velazquez documented in this encounter Progress Notes * Emiliana Velazquez - 08/24/2020 10:30 AM EST Behavioral Health Meal Temperer Progress Note Name: Napoleon Miller : 1985 Date: 08/24/2020 Plan Encounter Diagnosis: 1. Recurrent major depressive disorder, in partial remission (HCC) Plan 08/24/2020 Intervention Type initial assessment and/or use of validated rating scales with patient (collaborative care);provision of brief interventions using evidence based techniques (collaborative care) Treatment Goals improve coping skills;improve overall mood;improve relaxation skills;improve self-care routine;increase restful sleep;reduce anxiety symptoms Patient goal in their own words: Would like to feel more confident and relaxed. Don't want to feel as overwhelmed and have more control of my mind and feelings. Want a plan or things to work on. Patient motivation in their own words: Would like to continue sessions. Follow up 08/24/2020 Does the patient need follow up Yes [...] N/A Return in about 2 weeks (around 09/07/2020). Referral Referral 08/24/2020 Type of visit Follow up Type of contact Video Visit Start time with patient 10:21 AM End time with patient 11:06 AM Total time spent with patient (in minutes) 45 Reason for referral pt Mental Health Condition Assessment Clinical Impression: [facility] and pt had follow up session by video visit. Reviewed PHQ-9 (moderate range) and KRISTIN-7 (severe range). Identified what pt feels has contributed to improvement in mood. Pt reports that vacation in [place] was enjoyable, still experienced anxiety most mornings. Reports that taking Xanax in morning if he felt panic attack arising was helpful. Also tried the DIVE technique and found this quite effective. Reports that sx have intensified since returning to [place]. 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 Overall feels this is better for him as he benefits from the social interaction. Pt reports that work load has been stressful, is feeling anxious about overnight trip he has to make for work. Identified things that could help reorient his attentionwhile driving for the work trip since he states that is when he has struggled the most in the past.Identified listening to music or talking to on the phone as coping tools to try. Pt reports that he did connect with Dr. Mccarty about increasing Wellbutrin. Explored pt's perspectiveon mental health and some of the stigma he has experienced around it. Introduced biopsychosocial model to illustrate various factors that contribute to anxiety and depression. Pt shared that he does have a coworker at work that he feels comfortable talking to about this since he has had similar experience, noted this helps normalize mental health to a degree for him. Pt would like to meet again in 1.5 weeks. Screening Results 08/24/2020 PHQ-9 Total Score 10 KRISTIN-7 Total Score 15 Mental Status Exam: Physical Exam Psychiatric: Attention and Perception: Attention and perception normal. Mood and Affect: Mood normal. Affect is tearful. Speech: Speech normal. Behavior: Behavior normal. Behavior is cooperative. Thought Content: Thought content normal. Cognition and Memory: Cognition and memory normal. Judgment: Judgment normal. Barriers and Strengths 08/24/2020 Barriers patient reports no obstacles or barriers to care Strengths financially stable;healthy communication skills;healthy coping skills;interesting in learning how to make changes;motivated for change;positive social support system Safety Harm to self: no suicidal ideation, intent or plan. Harm to others: no homicidal ideation, intent or plan. Emiliana Velazquez Behavioral Health Meal Temperer documented in this encounter Plan of Treatment Upcoming Encounters Date Type Department Care Team (Late st Contact Info) Description 07/26/2025 8:15 AM EST Office Visit [facility] PRIMARY CARE [address] [phone] Quentin Mccarty DO [address] [place] [phone] documented as of this encounter Visit Diagnoses Diagnosis Recurrent major depressive disorder, in partial remission (HCC)- Primary documented in this encounter Additional Health Concerns Assessment Noted Time PHQ-9 Depression Total Score: 10 021 10:00 AM EST PHQ-2 Depression Total Score: 3 08/25/19 21 10:00 AM EST documented as of this encounter Care Teams Manager Technical Services Relationship Specialty Start Date End Date Quentin Mccarty DO [address] [place] [address] PCP - General Internal Medicine 08/02/20 Emiliana Velazquez Behavioral Health Meal Temperer Psychology 08/03/20 01/03/21 documented as of this encounter
--- OUTSIDE RECORDS SUMMARY | 2024-08-06 17:18 | XMS_ITS | Encounter Summary ---
Author Organization [facility] work ([facility]) Address [address] [facility] [address] [place] [address] Care Team Providers Care Door Patcher Name Role Phone Quentin Mccarty DO Primary Care Provider [phone] Source Comments The information that you have received may contain highly confidential and/or federally protected health information. This information has been disclosed to you from records protected by [facility]. The law prohibits you from making [...] contact the sender immediately.[facility] ([facility]) Encounter Details Date Type Department Care Team (Late st Contact Info) Description 08/13/2016 Orders Only [facility] Primary Care [place] [address] [place] [address] Quentin Mccarty DO [address] [place] [address] Anxiety Social History Tobacco Use Types Packs/Day Years [...] Filled Start Date End Date ALPRAZolam (XANAX) 0.5 MG tabletIndications: Anxiety Take 1 tablet (0.5 mg total) by mouth nightly as needed for anxiety for up to 20 doses. 20 tablet 08/13/2016 7 documented in this encounter Plan of Treatment Upcoming Encounters Date Type Department Care Team (Late st Contact Info) Description 07/26/2025 8:15 AM EST Office Visit [facility] PRIMARY CARE [address] [phone] Quentin Mccarty DO [address] [place] [phone] documented as of this encounter Visit Diagnoses Diagnosis Anxiety Anxiety state, unspecified documented in this encounter Discontinued Medications Medication Sig Discontinue Reason Start Date End Da te ALPRAZolam (XANAX) 0.5 MG tabletIndications:Anxiet y Take 1 tablet (0.5 mg total) by mouth nightly as needed for anxiety for up to 30 days. Reorder 08/13/2016 08/13/2016 documented as of this encounter Care Teams Door Patcher Relationship Specialty Start Date End Date Quentin Mccarty DO [address] [place] [id number] PCP - General Internal Medicine 07/23/16 03/15/18 documented as of this encounter
--- NOTE | 2024-08-06 17:41 | DI.VRAD_ITS ---
PROCEDURE INFORMATION: Exam: XR Left Shoulder Exam date and time: 08/06/2024 5:14 PM Age: 38 years old Clinical indication: Pain, S/P fall skiing TECHNIQUE: Imaging protocol: Radiologic exam of the left shoulder. Views: 2 or more views. COMPARISON: No relevant prior studies available. FINDINGS: Bones/joints: There is a minimally displaced fracture of the lateral aspect of the humerus involving the greater tuberosity. No evidence of joint dislocation. Soft tissues: Normal. IMPRESSION: Minimally displaced left greater tuberosity fracture. No joint dislocation. Dictated and Authenticated by: Gladys Calvo MD. Orderin Carie Pedersen MD
[2024-08-06] MEDS: MORPHine IR 15 MG TAB, 4 TABS/BTL PO (18:10)
== END 2024-08-06 18:11 | disposition home or self-care (01) ==
PROVIDERS: Emergency Provider Emergency Medicine
DX: S42.252A Displaced fracture of greater tuberosity of left humerus, initial encounter for closed fracture (principal); W00.0XXA Fall on same level due to ice and snow, initial encounter; Y93.23 Activity, snow (alpine) (downhill) skiing, snowboarding, sledding, tobogganing and snow tubing; Y92.838 Other recreation area as the place of occurrence of the external cause
CPT/HCPCS: 99283; 73030